=== PATIENT | female | born 1955 | race Caucasian/White ===

== ENCOUNTER 2018-06-03 04:20 | Inpatient (IN) ==
[2018-06-03] MEDS ORDERED: IOPAMIDOL 100 ML BOTTLE IV ONE (04:21)
[2018-06-03] MEDS ORDERED: ONDANSETRON 4 MG/2 ML VIAL IV ONE (04:28)
[2018-06-03] MEDS ORDERED: 0.9 % SODIUM CHLORIDE 2,000 ML IV ONE (04:28)
--- NOTE | 2018-06-03 04:32 | Emergency Department Note ---
Nausea/Vomiting/Diarrhea HPI - General Chief complaint: Nausea/Vomiting/Diarrhea Stated complaint: diarrhea Time Seen by Provider: 06/03/18 04:28 Source: patient Mode of arrival: ambulatory Limitations: no limitations - History of Present Illness HPI Narrative: 62-year-old female with diarrhea times 4 days. Has been on Augmentin 5 days for sinus infection prescribed at [facility]. sinus infection feels better but not resolved-still congested. also reports nausea. has not been eating much due to decreased appetite. reports that her hearing is decreased but cough is better. Chills noted with fever up to 101.5 here. She is markedly short of breath now requiring oxygen - Related Data Home Medications Medication Instructions Recorded Confirmed gamma e complex PO QDAY 12/29/15 05/31/18 multivitamin tablet 1 tab-cap PO QDAY 12/29/15 05/31/18 probiotic PO BID 12/29/15 05/31/18 epinephrine 0.3 mg/0.3 mL 0.3 mg IM ONCE 01/14/16 05/31/18 injection, auto-injector Previous Rx's Medication Instructions Recorded omeprazole 40 mg capsule,delayed 40 mg PO QDAY 30 Days #30 cap 01/14/16 release calcium carbonate 500 mg calcium 500 mg PO BID #60 tab 03/23/16 (1,250 mg) tablet cholecalciferol (vitamin D3) 2,000 2,000 unit PO QDAY #30 cap 03/23/16 unit capsule amoxicillin 875 mg-potassium 1 tab PO BID 10 Days #20 tab 05/31/18 clavulanate 125 mg tablet Allergies Allergy/AdvReac Type Severity Reaction Status Date / Time codeine Allergy Unknown Unknown Verified 05/31/18 13:04 bee stings Allergy Unknown Unknown Uncoded 05/31/18 13:04 Review of Systems All systems ED: reviewed and negative except as stated. Past Medical History - Past Medical History Attestation: Yes: The following information was validated with the patient. [facility] Narrative: Medical History (Last Reviewed 05/31/18 @ 13:10 by Dori Miranda PA-C) Abnormal mammogram (Chronic) Epigastric pain (Chronic) Lichen sclerosus (Chronic) Dry ear canal (Chronic) Migraines (Chronic) Kidney stones (Chronic) Acrochordon (Resolved) Acute otitis externa (Resolved) Anemia (Resolved) Bile back-up (Resolved) Colon polyps (Resolved) Dermatitis, eczematoid (Resolved) External otitis (Resolved) Gallbladder disorder (Resolved) Hemorrhoids (Resolved) Metatarsalgia (Resolved) Right foot pain (Resolved) Rotator cuff tendinitis (Resolved) Sigmoid diverticulosis (Resolved) Past Surgical History (Last Reviewed 05/31/18 @ 13:10 by Dori Miranda PA-C) History of cholecystectomy (Chronic) Hx of tonsillectomy (Chronic) H/O colonoscopy (Chronic) History of laparoscopic cholecystectomy (Resolved) Family History (Last Reviewed 05/31/18 @ 13:10 by Dori Miranda PA-C) Grandmother Arthritis Stroke H/O heart artery stent Family/Other Dementia Family/Other Dementia Mother Dementia Psychiatric history: Reports: no psych history 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 Normocephalic atraumatic. Conjunctive mildly bilaterally injected. No nasal discharge but audible congestion. Oropharynx dry buccal mucosa. Bilateral tympanic membranes are pearly with normal canals. She does seem to have some gross hearing loss. Neck is supple without lymphadenopathy thyromegaly or carotid bruit. Heart is regular rate and rhythm no murmur appreciated. Lungs with coarse sounds bilaterally concern for pneumonia. Now requiring 6 L oxygen nasal cannula. Abdomen is soft nontender nondistended. No peritoneal signs or guarding. +2 radial pulse. No pedal edema. Alert oriented. Limitations: no limitations Course Vital Signs Temperature 98.8 F 06/03/18 04:21 Pulse Rate 100 H 06/03/18 04:21 Respiratory Rate 22 06/03/18 04:21 Blood Pressure 118/81 06/03/18 04:21 Pulse Oximetry (%) 90 06/03/18 04:21 Temperature 102.7 F H 06/03/18 08:02 Pulse Rate 87 06/03/18 08:02 Respiratory Rate 24 H 06/03/18 06:27 Blood Pressure 115/70 06/03/18 08:02 Pulse Oximetry (%) 93 06/03/18 08:02 Nausea/Vomiting/Diarrhea - Lab Data Lab results reviewed: Yes I reviewed the patient's lab results. Result diagrams: 06/03/18 04:35 06/03/18 04:35 Lab Results 06/03/18 06/03/18 06/03/18 Range/Units 04:35 04:35 04:35 WBC 5.1 (4.5-11.0) K/mcL RBC 5.30 H (4.00-5.20) M/mcL Hgb 14.3 (12.0-15.0) g/dL Hct 42.9 (36.0-48.0) % MCV 81.0 (80.0-100.0) fL MCH 27.0 (26.0-34.0) pg MCHC 33.3 (31.0-36.0) g/dL RDW 13.5 (11.5-14.5) % Plt Count 168 (140-440) K/mcL MPV 9.2 (7.4-10.4) fL Gran % 86.4 H (38.0-78.0) % Lymph % (Auto) 8.4 L (15.5-49.0) % [place] % (Auto) 5.0 (1.0-12.0) % Eos % (Auto) 0 (0.0-7.0) % Baso % (Auto) 0.2 (0.0-2.0) % Gran # 4.4 (1.8-8.0) K/mcL Lymph # (Auto) 0.4 L (1.5-4.8) K/mcL [place] # (Auto) 0.3 (0.1-0.9) K/mcL Eos # (Auto) 0 (0.0-0.7) K/mcL Baso # (Auto) 0 (0.0-0.3) K/mcL VBG Lactic Acid (0.5-2.0) mmol/L Sodium 129 L (133-145) mmol/L Potassium 3.5 (3.3-5.1) mmol/L Chloride 94 L (96-108) mmol/L Carbon Dioxide 23 (22-30) mmol/L Anion Gap 12.0 (8-16) BUN 21 (8-23) mg/dl Creatinine 1.0 (0.6-1.1) mg/dl GFR Calculation 59 Glucose 154 H (70-105) mg/dL Calcium 8.9 (8.6-10.4) mg/dl Total Bilirubin 0.5 (0.0-1.0) mg/dL AST 44 H (0-37) U/l ALT 22 (0-40) U/l Alkaline Phosphatase 72 (39-117) U/L Troponin T TNP NT-Pro-B Natriuret Pep (0-125) pg/ml Total Protein 7.3 (5.9-8.4) gm/dL Albumin 3.6 (3.2-5.2) gm/dL Globulin 3.7 (2.2-3.7) gm/dL Albumin/Globulin Ratio 1.0 (1.0-2.3) Amylase 34 (28-100) U/L Lipase 45 (7-60) U/L Procalcitonin (<0.10) ng/mL Urine Color Urine Appearance Urine pH (5.0-9.0) Ur Specific [place] (1.000-1.035) Urine Protein (NEG) mg/dL Urine Glucose (UA) (NEG) mg/dL Urine Ketones (NEG) mg/dL Urine Occult Blood (<0.03) mg/dL Urine Nitrate (NEG) Urine Bilirubin (NEG) mg/dL Urine Urobilinogen (NEG) mg/dL Ur Leukocyte Esterase (NEG) /uL Urine RBC (0-1) /hpf Urine WBC (0-4) /hpf Ur Squamous Epith Cells (0-4) /hpf Ur Transition Epith Cell (0-2) /hpf Urine Bacteria (0) /hpf Hyaline Casts (0-2) /lpf Urine Mucus (0) /hpf Ur Culture Indicated? 06/03/18 06/03/18 06/03/18 Range/Units 04:35 05:45 05:45 WBC (4.5-11.0) K/mcL RBC (4.00-5.20) M/mcL Hgb (12.0-15.0) g/dL Hct (36.0-48.0) % MCV (80.0-100.0) fL MCH (26.0-34.0) pg MCHC (31.0-36.0) g/dL RDW (11.5-14.5) % Plt Count (140-440) K/mcL MPV (7.4-10.4) fL Gran % (38.0-78.0) % Lymph % (Auto) (15.5-49.0) % [place] % (Auto) (1.0-12.0) % Eos % (Auto) (0.0-7.0) % Baso % (Auto) (0.0-2.0) % Gran # (1.8-8.0) K/mcL Lymph # (Auto) (1.5-4.8) K/mcL [place] # (Auto) (0.1-0.9) K/mcL Eos # (Auto) (0.0-0.7) K/mcL Baso # (Auto) (0.0-0.3) K/mcL VBG Lactic Acid 1.3 (0.5-2.0) mmol/L Sodium (133-145) mmol/L Potassium (3.3-5.1) mmol/L Chloride (96-108) mmol/L Carbon Dioxide (22-30) mmol/L Anion Gap (8-16) BUN (8-23) mg/dl Creatinine (0.6-1.1) mg/dl GFR Calculation Glucose (70-105) mg/dL Calcium (8.6-10.4) mg/dl Total Bilirubin (0.0-1.0) mg/dL AST (0-37) U/l ALT (0-40) U/l Alkaline Phosphatase (39-117) U/L Troponin T NT-Pro-B Natriuret Pep 74.5 (0-125) pg/ml Total Protein (5.9-8.4) gm/dL Albumin (3.2-5.2) gm/dL Globulin (2.2-3.7) gm/dL Albumin/Globulin Ratio (1.0-2.3) Amylase (28-100) U/L Lipase (7-60) U/L Procalcitonin (<0.10) ng/mL Urine Color Yellow Urine Appearance Hazy Urine pH 6.0 (5.0-9.0) Ur Specific [place] 1.027 (1.000-1.035) Urine Protein 100 A (NEG) mg/dL Urine Glucose (UA) Negative (NEG) mg/dL Urine Ketones 5/tr A (NEG) mg/dL Urine Occult Blood Neg (<0.03) mg/dL Urine Nitrate Neg (NEG) Urine Bilirubin Neg (NEG) mg/dL Urine Urobilinogen Neg (NEG) mg/dL Ur Leukocyte Esterase Neg (NEG) /uL Urine RBC 1 (0-1) /hpf Urine WBC 4 (0-4) /hpf Ur Squamous Epith Cells 1 (0-4) /hpf Ur Transition Epith Cell < 1 (0-2) /hpf Urine Bacteria 0 (0) /hpf Hyaline Casts 32 H (0-2) /lpf Urine Mucus Many A (0) /hpf Ur Culture Indicated? No 06/03/18 06/03/18 Range/Units 06:53 06:53 WBC (4.5-11.0) K/mcL RBC (4.00-5.20) M/mcL Hgb (12.0-15.0) g/dL Hct (36.0-48.0) % MCV (80.0-100.0) fL MCH (26.0-34.0) pg MCHC (31.0-36.0) g/dL RDW (11.5-14.5) % Plt Count (140-440) K/mcL MPV (7.4-10.4) fL Gran % (38.0-78.0) % Lymph % (Auto) (15.5-49.0) % [place] % (Auto) (1.0-12.0) % Eos % (Auto) (0.0-7.0) % Baso % (Auto) (0.0-2.0) % Gran # (1.8-8.0) K/mcL Lymph # (Auto) (1.5-4.8) K/mcL [place] # (Auto) (0.1-0.9) K/mcL Eos # (Auto) (0.0-0.7) K/mcL Baso # (Auto) (0.0-0.3) K/mcL VBG Lactic Acid (0.5-2.0) mmol/L Sodium (133-145) mmol/L Potassium (3.3-5.1) mmol/L Chloride (96-108) mmol/L Carbon Dioxide (22-30) mmol/L Anion Gap (8-16) BUN (8-23) mg/dl Creatinine (0.6-1.1) mg/dl GFR Calculation Glucose (70-105) mg/dL Calcium (8.6-10.4) mg/dl Total Bilirubin (0.0-1.0) mg/dL AST (0-37) U/l ALT (0-40) U/l Alkaline Phosphatase (39-117) U/L Troponin T < 0.01 NT-Pro-B Natriuret Pep (0-125) pg/ml Total Protein (5.9-8.4) gm/dL Albumin (3.2-5.2) gm/dL Globulin (2.2-3.7) gm/dL Albumin/Globulin Ratio (1.0-2.3) Amylase (28-100) U/L Lipase (7-60) U/L Procalcitonin 0.18 (<0.10) ng/mL Urine Color Urine Appearance Urine pH (5.0-9.0) Ur Specific [place] (1.000-1.035) Urine Protein (NEG) mg/dL Urine Glucose (UA) (NEG) mg/dL Urine Ketones (NEG) mg/dL Urine Occult Blood (<0.03) mg/dL Urine Nitrate (NEG) Urine Bilirubin (NEG) mg/dL Urine Urobilinogen (NEG) mg/dL Ur Leukocyte Esterase (NEG) /uL Urine RBC (0-1) /hpf Urine WBC (0-4) /hpf Ur Squamous Epith Cells (0-4) /hpf Ur Transition Epith Cell (0-2) /hpf Urine Bacteria (0) /hpf Hyaline Casts (0-2) /lpf Urine Mucus (0) /hpf Ur Culture Indicated? ABG shows pH of 7.46 PCO2 of 33 PO2 of 63 is on 7 L oxygen Influenza swab was negative - Radiology Data Radiology results reviewed: Yes I reviewed the patient's radiology results. Initial chest x-ray shows infiltrate versus increased vascular markings. I.e. pneumonia versus CHF CT scan of chest subsequently done which shows multifocal pneumonia Disposition Pt seen by [facility]/PA only: No Clinical Impression: Multifocal pneumonia, Antibiotic-associated diarrhea Respiratory failure with hypoxia Qualifiers: Chronicity: acute Qualified Code(s): J96.01 - Acute respiratory failure with hypoxia Summary: Initial concern was for diarrhea but after examining patient respiratory failure quickly became the bigger issue. She has hypoxia and a fever concern for pneumonia with sepsis. Labs were ordered along with blood cultures. Dose of Zosyn given. IV fluids started; IV Tylenol Chest x-ray shows infiltrate versus CHF. CT scan shows multifocal pneumonia. She is requiring 7 L of oxygen nasal cannula. I discussed his case with Dr. Howard, hospitalist, who agreed to accept the case further care and evaluation in the ICU Disposition: Xfer As Inpt ([facility]) Condition: Critical Referrals: Reena Forbes ARNP [Primary Care Provider] -
[2018-06-03 05:02] LABS: Basophils # (Auto) 0 K/mcL (0.0-0.3); Basophils % (Auto) 0.2 % (0.0-2.0); Eosinophils # (Auto) 0 K/mcL (0.0-0.7); Eosinophils % (Auto) 0 % (0.0-7.0); Granulocytes % (Auto) 86.4 % (38.0-78.0); Lymphocytes # (Auto) 0.4 K/mcL (1.5-4.8); Lymphocytes % (Auto) 8.4 % (15.5-49.0); Mean Corpuscular HGB Conc 33.3 g/dL (31.0-36.0); Monocytes # (Auto) 0.3 K/mcL (0.1-0.9); Platelet Count 168 K/mcL (140-440); Red Cell Distribution Width 13.5 % (11.5-14.5)
[2018-06-03 05:20] LABS: ALT/SGPT 22 U/l (0-40); Albumin 3.6 gm/dL (3.2-5.2); Alkaline Phosphatase 72 U/L (39-117); Amylase 34 U/L (28-100); Blood Urea Nitrogen 21 mg/dl (8-23); Lipase 45 U/L (7-60)
[2018-06-03] MEDS ORDERED: PIPERACILLIN SODIUM/TAZOBACTAM 3.375 GM in DEXTROSE 5% IN WATER 50 ML IV ONE (05:31)
[2018-06-03] MEDS ORDERED: ACETAMINOPHEN 325 MG TABLET PO ONE ×2 (06:29→07:39)
[2018-06-03] MEDS ORDERED: ACETAMINOPHEN 1,000 MG/100 ML BOTTLE IV ONE (06:41)
[2018-06-03 06:46] LABS: Appearance,Urine HAZY; Bacteria,Urine 0 /hpf (0); Bilirubin,Urine NEG (NEG); Color,Urine YELLOW; Glucose,Urine (UA) NEGATIVE (NEG); Leukocyte Esterase,Urine NEG /uL (NEG); Mucus,Urine MANY /hpf (0); Protein,Urine 100 mg/dL (NEG); Specific Gravity,Urine 1.027 (1.000-1.035); Urine Blood NEG mg/dL (<0.03); Urine Hyaline Cast 32 /lpf (0-2); Urine RBC 1 /hpf (0-1); Urine Squamous Epithelial Cell 1 /hpf (0-4); Urine Transitional Epi Cells < 1 /hpf (0-2); Urine WBC 4 /hpf (0-4); Urobilinogen,Urine NEG (NEG)
--- NOTE | 2018-06-03 07:47 | XRay Report ---
CLINICAL INFORMATION: Cough COMPARISON: None. FINDINGS: The heart is equivocally enlarged accentuated by portable technique, right rotation, lordotic positioning and suboptimal inspiratory result. Mediastinum is unremarkable. Pulmonary vessels are normal for technique. Mild patchy infiltrates present both mid and lower lungs. The right diaphragm moderately elevated. Small bibasilar pleural effusions noted IMPRESSION: Mild patchy infiltrates and/or atelectasis both mid and lower lungs with small bilateral pleural effusions. Moderate elevation right diaphragm Interpreted and Authenticated by: Andreas Graham 06/03/18
--- NOTE | 2018-06-03 09:13 | Cat Scan Report ---
CLINICAL INFORMATION: Shortness of breath with bilateral infiltrates COMPARISON: None. TECHNIQUE: 80 cc of Isovue-300 were injected intravenously, and 25 seconds later, 0.625 mm helical slices were obtained from the lung apices through the bases. Following reconstruction, 2.5 mm sagittal, coronal and axial reformations were processed and reviewed at lung, mediastinal and bone windows. 7 mm axial MIPS were also obtained to optimize pulmonary nodule detection. The exam was performed using radiation dose optimization techniques including, but not limited to, automated exposure control, adjustment of the mA and/or kV according to patient size and use of iterative reconstruction technique. FINDINGS: Pulmonary parenchymal windows show moderate patchy alveolar and groundglass infiltrates throughout both lower lobes and, to a lesser extent, the right middle and both upper lobes. In the posterior basilar segment of the left lower lobe, there is a small wedge-shaped region of consolidation which could indicate infiltrate, scar, infarct or, less likely, a mass. Mild underlying bronchitis changes are noted. There are no effusions - the pleural spaces are normal. Mediastinal windows show the thoracic aorta is normal in contour and caliber. There is mild enlargement of the central pulmonary arteries the main pulmonary diameter of 3 cm suggesting pulmonary hypertension. A few borderline borderline enlarged mediastinal lymph nodes noted in the precarinal and right paratracheal region ranging up to 12 mm previously almost certainly benign reactive adenopathy. The heart is normal in size and configuration esophagus is unremarkable. No abnormality appreciated in the thyroid. Bones and soft tissues the chest wall seen only degenerative disc disease midthoracic spine with anterior osteophyte formation. Images through the abdomen show mild hepatomegaly with diffuse fatty change. Visualized pancreas, kidneys adrenal glands and spleen are normal. IMPRESSION: 1. Moderate sized patchy alveolar/groundglass infiltrates scattered throughout both lower lobes and, to a lesser extent, the right middle and both upper lobes. Multifocal infiltrates may indicate an infection (with a higher likelihood of an atypical organism such as Legionella, gram-negative, Klebsiella, anaerobe, PCP or TB) or aspiration. Less common causes include septic emboli and Bansal's granulomatosis. Chronic etiologies, would be extremely unlikely, but include organizing pneumonia, eosinophilic pneumonia and lipoid pneumonia 2. 2.4 cm wedge-shaped consolidated density in the posterior basilar segment left lower lobe. This is likely focally consolidated infection or scar. Mass would be considered unlikely. Suggest six month follow-up chest CT to ensure stability or involution. It was not present on abdominal CT demonstrating the lung bases over one year prior 05/23/2017 3. Mild underlying bronchitis 4. Mild enlargement of the central pulmonary arteries suggestive, but not diagnostic, of pulmonary hypertension. Consider echocardiogram to confirm or refute. 5. Mild mediastinal adenopathy almost certainly benign reactive lymph nodes related to pulmonary infection. 6. Mild hepatomegaly - stable Interpreted and Authenticated by: Andreas Graham 06/03/18
[2018-06-03] MEDS ORDERED: IPRATROPIUM/ALBUTEROL 3 ML AMPUL.NEB NEB PRN (10:21)
[2018-06-03] MEDS ORDERED: PROCHLORPERAZINE 25 MG SUPP.RECT PR PRN (10:21)
[2018-06-03] MEDS ORDERED: ACETAMINOPHEN 325 MG TABLET PO PRN (10:21)
--- NOTE | 2018-06-03 10:33 | Internal Med History&Physical ---
Medical - H&P: [facility] Patient information: Note initiated : 06/03/18 at 10:30 am Service Date, if different from initiated Date: [] Patient: Radha Eric 62 y/o F admitted on 06/03/18 for diarrhea. Chief Complaint: [] History of present illness: Ms. Eric is a 62 year old F Who developed signs and symptoms of a sinus infection over she went in to [place] care on Monday and received Augmentin read since taking Augmentin she is developed diarrhea but has shown some improvement in her sinus infection symptoms. She is doing relatively well until yesterday when she started to notice fever, becoming more tired and fatigued, and developing shortness of breath. She also complained of poor appetite. In the ER she is evaluated found to have a temperature of 101.5 and noted to be markedly short of breath requiring oxygen. First obtain a chest x-ray and then a CT chest for further delineation which showed multifocal pneumonia. She has continued diarrhea, C. difficile study in the ER was negative. She does have hyponatremia as well. She was requiring 7 L of oxygen in the ED. Lactic acid was within normal limits. Urinalysis with hyaline casts and ketones. She states her cough is just from some phlegm that is draining down from her sinuses. Patient denies chest pain, but does admit to shortness of breath. She received several liters of normal saline in the ED. Review of Systems: denies headache/nausea/vomiting/chest or abdominal pain/. Otherwise see above. Medical - H&P: H Medical history: Medical History (Last Reviewed 05/31/18 @ 13:10 by Dori Miranda PA-C) Abnormal mammogram (Chronic) Epigastric pain (Chronic) Lichen sclerosus (Chronic) Dry ear canal (Chronic) Migraines (Chronic) Kidney stones (Chronic) Acrochordon (Resolved) Acute otitis externa (Resolved) Anemia (Resolved) Bile back-up (Resolved) Colon polyps (Resolved) Dermatitis, eczematoid (Resolved) External otitis (Resolved) Gallbladder disorder (Resolved) Hemorrhoids (Resolved) Metatarsalgia (Resolved) Right foot pain (Resolved) Rotator cuff tendinitis (Resolved) Sigmoid diverticulosis (Resolved) Past Surgical History (Last Reviewed 05/31/18 @ 13:10 by Dori C Miranda, PA-C) History of cholecystectomy (Chronic) Hx of tonsillectomy (Chronic) H/O colonoscopy (Chronic) History of laparoscopic cholecystectomy (Resolved) Family History (Last Reviewed 05/31/18 @ 13:10 by Dori Miranda PA-C) Grandmother Arthritis Stroke H/O heart artery stent Family/Other Dementia Family/Other Dementia Mother Dementia Social History (Last Updated 05/31/18 @ 13:49 by Dori Miranda PA-C) Denies tobacco, was exposed to secondhand smoke as a child from her mother. Drinks alcohol rarely. Lives at home with her Medical - H&P: Meds Home Medications Medication Instructions Recorded Confirmed Type gamma e complex PO QDAY 12/29/15 05/31/18 History multivitamin tablet 1 tab-cap PO QDAY 12/29/15 05/31/18 History probiotic PO BID 12/29/15 05/31/18 History epinephrine 0.3 mg/0.3 mL 0.3 mg IM ONCE 01/14/16 05/31/18 History injection, auto-injector omeprazole 40 mg capsule,delayed 40 mg PO QDAY 30 Days #30 cap 01/14/16 Rx release calcium carbonate 500 mg calcium 500 mg PO BID #60 tab 03/23/16 05/31/18 Rx (1,250 mg) tablet cholecalciferol (vitamin D3) 2,000 2,000 unit PO QDAY #30 cap 03/23/16 05/31/18 Rx unit capsule amoxicillin 875 mg-potassium 1 tab PO BID 10 Days #20 tab 05/31/18 05/31/18 Rx clavulanate 125 mg tablet Allergies Allergy/AdvReac Type Severity Reaction Status Date / Time codeine Allergy Unknown Unknown Verified 05/31/18 13:04 bee stings Allergy Unknown Unknown Uncoded 05/31/18 13:04 Medical - H&P: Exam - Constitutional Vitals: Temp Pulse Resp BP Pulse Ox 101.3 F H 84 19 106/67 94 06/03/18 09:46 06/03/18 09:46 06/03/18 09:46 06/03/18 09:46 06/03/18 09:46 Exam: General: Alert, Awake, No acute Distress Eyes/N/T: EOMI, PEERL, Head/Neck: neck supple, normocephalic atraumatic CV: RRR, No murmurs, normal s1/s2 Pulm: Mild bilateral rhonchi/rales, no wheezing Abd: soft, nontender, +BS x4 Ext: no clubbing/cyanosis/edema Neuro: Alert, no focal deficits, moves all extremities, CN 2-12 grossly intact, symmetrical strength b/l upper/lower, sensations intact b/l upper/lower Skin: warm/dry Medical - H&P: Reslt - Labs CBC & Chem 7: 06/03/18 04:35 06/03/18 04:35 Labs: Short CBC 06/03/18 Range/Units 04:35 WBC 5.1 (4.5-11.0) K/mcL Hgb 14.3 (12.0-15.0) g/dL Hct 42.9 (36.0-48.0) % Plt Count 168 (140-440) K/mcL BMP 06/03/18 04:35 Sodium 129 L Potassium 3.5 Chloride 94 L Carbon Dioxide 23 BUN 21 Creatinine 1.0 Glucose 154 H Calcium 8.9 Cardiac Enzymes 06/03/18 06/03/18 Range/Units 04:35 06:53 Troponin T TNP < 0.01 Liver Function 06/03/18 Range/Units 04:35 Total Bilirubin 0.5 (0.0-1.0) mg/dL AST 44 H (0-37) U/l ALT 22 (0-40) U/l Alkaline Phosphatase 72 (39-117) U/L Albumin 3.6 (3.2-5.2) gm/dL Urine 06/03/18 Range/Units 05:45 Urine Color Yellow Urine Appearance Hazy Urine pH 6.0 (5.0-9.0) Ur Specific [place] 1.027 (1.000-1.035) Urine Protein 100 A (NEG) mg/dL Urine Glucose (UA) Negative (NEG) mg/dL - EKG Data EKG comments: 06/03/18 10:34 CT chest with multifocal infiltrates concerning for pneumonia. UA with ketones and hyaline casts C. difficile negative Medical - H&P: A/P - Narrative A/P Narrative: A: *Pneumonia: *Acute hypoxic respiratory failure: *Sepsis: *Diarrhea, antibiotic induced: *Volume depletion: *Hyponatremia: * P: -zosyn/levaquin, pending BC/SC -legionella/Strep UR pending -resp panel pending -O2 supp and wean, IS/Acapella -imoduim -f/u electrolytes -IVF's - -ppx: lovenox
[2018-06-03] MEDS: 0.9 % SODIUM CHLORIDE 1,000 ML IV SCH ×2 (11:22→21:33)
[2018-06-03] MEDS: LEVOFLOXACIN 750 MG/150 ML BAG IV SCH (11:23)
[2018-06-03] MEDS: LOPERAMIDE 2 MG CAPSULE PO PRN ×4 (11:33→20:14)
[2018-06-03] MEDS: PIPERACILLIN SODIUM/TAZOBACTAM 3.375 GM in DEXTROSE 5% IN WATER 50 ML IV SCH ×2 (13:08→17:17)
[2018-06-03] MEDS: ACETAMINOPHEN 325 MG TABLET PO PRN ×2 (14:21→19:14)
[2018-06-03] MEDS: 0.9 % SODIUM CHLORIDE 10 ML SYRINGE IV SCH ×3 (14:23→21:40)
[2018-06-03] MEDS: ONDANSETRON 4 MG/2 ML VIAL IV PRN (15:48)
[2018-06-03] MEDS: OSELTAMIVIR PHOSPHATE 75 MG CAPSULE PO SCH (17:19)
[2018-06-03] MEDS: FAMOTIDINE 20 MG TABLET PO SCH (20:14)
[2018-06-03] MEDS: LACTOBACILLUS 1 CAPSULE PO SCH (20:14)
[2018-06-03] MEDS ORDERED: hydrOXYzine 25 MG TABLET PO ONE (20:27)
[2018-06-03] MEDS: IBUPROFEN 200 MG TABLET PO PRN (21:39)
[2018-06-04] MEDS: PIPERACILLIN SODIUM/TAZOBACTAM 3.375 GM in DEXTROSE 5% IN WATER 50 ML IV SCH ×4 (00:03→17:01)
[2018-06-04] MEDS: OSELTAMIVIR PHOSPHATE 75 MG CAPSULE PO SCH ×3 (00:03→21:06)
[2018-06-04] MEDS: ACETAMINOPHEN 325 MG TABLET PO PRN ×5 (00:10→21:06)
[2018-06-04] MEDS: 0.9 % SODIUM CHLORIDE 1,000 ML IV SCH (01:32)
[2018-06-04] MEDS: 0.9 % SODIUM CHLORIDE 10 ML SYRINGE IV SCH ×3 (05:16→21:06)
[2018-06-04] MEDS: IBUPROFEN 200 MG TABLET PO PRN (05:16)
[2018-06-04 05:56] LABS: Basophils # (Auto) 0 K/mcL (0.0-0.3); Basophils % (Auto) 0.3 % (0.0-2.0); Eosinophils # (Auto) 0 K/mcL (0.0-0.7); Eosinophils % (Auto) 0 % (0.0-7.0); Lymphocytes # (Auto) 0.6 K/mcL (1.5-4.8); Lymphocytes % (Auto) 17.3 % (15.5-49.0); Mean Cell Volume 81.2 fL (80.0-100.0); Mean Corpuscular HGB Conc 33.4 g/dL (31.0-36.0); Monocytes # (Auto) 0.1 K/mcL (0.1-0.9); Monocytes % (Auto) 3.4 % (1.0-12.0); Platelet Count 136 K/mcL (140-440); RBC 4.73 M/mcL (4.00-5.20); Red Cell Distribution Width 13.7 % (11.5-14.5)
[2018-06-04 06:30] LABS: ALT/SGPT 25 U/l (0-40); Albumin 2.8 gm/dL (3.2-5.2); Albumin/Globulin Ratio 0.9 (1.0-2.3); Alkaline Phosphatase 61 U/L (39-117); Bilirubin,Direct < 0.2 mg/dL (0.0-0.3); Blood Urea Nitrogen 20 mg/dl (8-23); Gamma Glutamyl Transpeptidase 22 U/L (5-36); Uric Acid 4.4 mg/dL (2.5-8.0)
[2018-06-04] MEDS ORDERED: POTASSIUM CHLORIDE 20 MEQ TABLET PO ONE (07:20)
--- NOTE | 2018-06-04 07:22 | Internal Med Progress Note ---
Medical - PN: Subj Patient information: Note initiated : 06/04/18 at 7:16 am Service Date, if different from initiated Date: [] Patient: Radha Eric 62 y/o F admitted on 06/03/18 for diarrhea. Chief Complaint: [] Interval history: Ms. Eric is a 62 year old F Who developed signs and symptoms of a sinus infection over she went in to [place] care on Monday and received Augmentin read since taking Augmentin she is developed diarrhea but has shown some improvement in her sinus infection symptoms. She is doing relatively well until yesterday when she started to notice fever, becoming more tired and fatigued, and developing shortness of breath. She also complained of poor appetite. In the ER she is evaluated found to have a temperature of 101.5 and noted to be markedly short of breath requiring oxygen. First obtain a chest x-ray and then a CT chest for further delineation which showed multifocal pneumonia. She has continued diarrhea, C. difficile study in the ER was negative. She does have hyponatremia as well. She was requiring 7 L of oxygen in the ED. Lactic acid was within normal limits. Urinalysis with hyaline casts and ketones. She states her cough is just from some phlegm that is draining down from her sinuses. Patient denies chest pain, but does admit to shortness of breath. She received several liters of normal saline in the ED. 06/04 Cough and shortness of breath slowly improving. Tired. No other new complaints. diarrhea slowing down. Review of Systems: denies headache/fever/chills/nausea/vomiting/chest or abdominal pain. Otherwise see above. - Constitutional Vitals: Vital Signs Temp Pulse Resp BP Pulse Ox 99.6 F H 59 L 19 95/60 93 06/04/18 06:32 06/04/18 06:32 06/04/18 06:32 06/04/18 06:01 06/04/18 06:45 Period Temp Pulse Resp BP Sys/Martins Pulse Ox Last 24 Hr 98.7 F-103.3 F 57-91 12-36 82-126/54-80 90-98 Intake and Output 06/03/18 06/04/18 06/04/18 21:59 05:59 13:59 Intake Total 50 / 50 972 / 972 Output Total 239 / 239 150 / 150 Balance -189 / -189 822 / 822 Weight 91.807 kg Intake & Output: Intake & Output 06/03/18 06/04/18 06/04/18 21:59 05:59 13:59 Intake Total 50 / 50 972 / 972 Output Total 239 / 239 150 / 150 Balance -189 / -189 822 / 822 Weight 91.807 kg Intake: IV 50 / 50 972 / 972 Sodium Chloride 0.9% 1,000 ml @ 922 / 922 100 mls/hr IV .Q10H [facility] Rx#: [id number] Zosyn 3.375 gm In Dextrose 5% 50 / 50 50 / 50 in Water 50 ml @ 100 mls/hr IV Q6H [facility] Rx#:[id number] Output: Urine Catheter Amount 235 / 235 150 / 150 # of times incontinent of urine 4 / 4 Other: Urine Appearance Clear Clear Uretheral (Lauren) Clear Clear Urine Color Bright Yellow Dark Dori Uretheral (Lauren) Straw Dark Dori Stool Size Small Stool Color Brown Stool Consistency Liquid # of times incontinent of 1 Bowels Exam: General: Alert, Awake, No acute Distress Eyes/N/T: EOMI, Head/Neck: neck supple, normocephalic atraumatic CV: RRR, No murmurs, normal s1/s2 Pulm: Mild bilateral rhonchi/rales, no wheezing Abd: soft, nontender, +BS x4 Ext: no clubbing/cyanosis, trace LE edema Neuro: Alert, no focal deficits, moves all extremities, Skin: warm/dry Medical - PN: Obj Da - Labs CBC & Chem 7: 06/04/18 04:10 06/04/18 04:10 Labs: Abnormal Lab Results 06/04/18 06/04/18 06/03/18 04:10 04:10 05:45 WBC 3.2 L RBC Plt Count 136 L Gran % 79.0 H Lymph % (Auto) Lymph # (Auto) 0.6 L Sodium Potassium 3.2 L Chloride Glucose Calcium 8.5 L AST 61 H Lactate Dehydrogenase 481 H Albumin 2.8 L Albumin/Globulin Ratio 0.9 L Urine Protein 100 A Urine Ketones 5/tr A Hyaline Casts 32 H Urine Mucus Many A 06/03/18 06/03/18 04:35 04:35 WBC RBC 5.30 H Plt Count Gran % 86.4 H Lymph % (Auto) 8.4 L Lymph # (Auto) 0.4 L Sodium 129 L Potassium Chloride 94 L Glucose 154 H Calcium AST 44 H Lactate Dehydrogenase Albumin Albumin/Globulin Ratio Urine Protein Urine Ketones Hyaline Casts Urine Mucus Meds: Medications Acetaminophen (Tylenol) 650 mg PO Q4-6HP PRN PRN Reason: PAIN/FEVER > 101 Last Admin: 06/04/18 05:16 Dose: 650 mg Albuterol/Ipratropium (Duoneb) 3 ml NEB Q4HRT PRN PRN Reason: Bronchospasm Enoxaparin Sodium (Lovenox) 40 mg SQ DAILY [facility] Famotidine (Pepcid) 20 mg PO BID [facility] Last Admin: 06/03/18 20:14 Dose: 20 mg Levofloxacin (Levaquin) 750 mg in 150 mls @ 100 mls/hr IV DAILY [facility] Last Infusion: 06/03/18 13:08 Dose: Infused Piperacillin Sod/Tazobactam (Sod 3.375 gm/ Dextrose) 50 mls @ 100 mls/hr IV Q6H [facility] Last Admin: 06/04/18 05:16 Dose: 100 mls/hr Lactobacillus Rhamnosus (Culturelle) 1 cap PO BID [facility] Last Admin: 06/03/18 20:14 Dose: 1 cap Loperamide HCl (Imodium) 2 mg PO PRN PRN PRN Reason: Diarrhea Last Admin: 06/03/18 20:14 Dose: 2 mg Ondansetron HCl (Zofran) 4 mg IV Q4HP PRN PRN Reason: Nausea And Vomiting Last Admin: 06/03/18 15:48 Dose: 4 mg Oseltamivir Phosphate (Tamiflu) 75 mg PO BID [facility] Last Admin: 06/04/18 00:03 Dose: 75 mg Pneumococcal Polyvalent Vaccine (Pneumovax 23) 0.5 ml IM .ONCE ONE Stop: 06/04/18 10:01 Prochlorperazine Maleate (Compazine) 12.5 mg [place] Q12HP PRN PRN Reason: Nausea And Vomiting Sodium Chloride (Saline Flush) 10 ml IV Q8 [facility] Last Admin: 06/04/18 05:16 Dose: 10 ml Medical - PN: A/P - Time Spent With Patient Total time spent is greater than 50% in coordination of care (as documented) at patient's floor/unit and/or counseling patient: - Narrative A/P Narrative: A: *Multifocal Pneumonia (INFLUENZA A): -strep UR neg *Acute hypoxic respiratory failure: 2/2 above -3L's NC from 6L's on admit *Sepsis: improving *Recent Sinus infection *Diarrhea, antibiotic induced: slowing down *Volume depletion: *Hyponatremia: improved *hypokalemia P: -Tamiflu -finish abx for sinus infection -legionella pending -O2 supp and wean, IS/Acapella -imodum prn -f/u electrolytes and replete prn -IVF's d/c -ambulate -ppx: [facility] - PN: Qual - VTE Deep Vein Thrombosis/Pulmonary Embolism Present on Admission: No
[2018-06-04] MEDS: ENOXAPARIN 40 MG/0.4 ML SYRINGE SQ SCH (08:25)
[2018-06-04] MEDS: LACTOBACILLUS 1 CAPSULE PO SCH ×2 (08:25→21:06)
[2018-06-04] MEDS: FAMOTIDINE 20 MG TABLET PO SCH ×2 (08:25→21:06)
[2018-06-04] MEDS: LEVOFLOXACIN 750 MG/150 ML BAG IV SCH (08:26)
[2018-06-04] MEDS ORDERED: PNEUMOCOCCAL 23-VAL P-SAC VAC 0.5 ML SYRINGE IM ONE (10:00)
[2018-06-04] MEDS: ONDANSETRON 4 MG/2 ML VIAL IV PRN (11:47)
[2018-06-04] MEDS ORDERED: hydrOXYzine 25 MG TABLET PO ONE (18:41)
[2018-06-04] MEDS: BENZONATATE 100 MG CAPSULE PO PRN (21:40)
[2018-06-05] MEDS: PIPERACILLIN SODIUM/TAZOBACTAM 3.375 GM in DEXTROSE 5% IN WATER 50 ML IV SCH ×5 (00:08→23:54)
[2018-06-05] MEDS: ACETAMINOPHEN 325 MG TABLET PO PRN ×3 (03:09→18:01)
[2018-06-05] MEDS ORDERED: FUROSEMIDE 40 MG/4 ML VIAL IV ONE ×3 (04:11→13:00)
[2018-06-05] MEDS: BENZONATATE 100 MG CAPSULE PO PRN ×2 (05:22→20:07)
[2018-06-05] MEDS: 0.9 % SODIUM CHLORIDE 10 ML SYRINGE IV SCH ×3 (05:23→21:10)
[2018-06-05 05:46] LABS: Basophils # (Auto) 0 K/mcL (0.0-0.3); Basophils % (Auto) 0.3 % (0.0-2.0); Eosinophils # (Auto) 0 K/mcL (0.0-0.7); Eosinophils % (Auto) 0 % (0.0-7.0); Granulocytes % (Auto) 79.6 % (38.0-78.0); Lymphocytes # (Auto) 0.4 K/mcL (1.5-4.8); Lymphocytes % (Auto) 15.9 % (15.5-49.0); Mean Cell Volume 81.4 fL (80.0-100.0); Mean Corpuscular HGB Conc 33.8 g/dL (31.0-36.0); Monocytes # (Auto) 0.1 K/mcL (0.1-0.9); Monocytes % (Auto) 4.2 % (1.0-12.0); Platelet Count 140 K/mcL (140-440); RBC 4.45 M/mcL (4.00-5.20); Red Cell Distribution Width 13.7 % (11.5-14.5)
[2018-06-05 06:33] LABS: Blood Urea Nitrogen 11 mg/dl (8-23)
[2018-06-05] MEDS ORDERED: POTASSIUM CHLORIDE 20 MEQ TABLET PO ONE ×2 (07:05→13:00)
--- NOTE | 2018-06-05 07:10 | Internal Med Progress Note ---
Medical - PN: Subj Patient information: Note initiated : 06/05/18 at 6:59 am Service Date, if different from initiated Date: [] Patient: Radha Eric 62 y/o F admitted on 06/03/18 for diarrhea. Chief Complaint: [] Interval history: Ms. Eric is a 62 year old F Who developed signs and symptoms of a sinus infection over she went in to [place] care on Monday and received Augmentin read since taking Augmentin she is developed diarrhea but has shown some improvement in her sinus infection symptoms. She is doing relatively well until yesterday when she started to notice fever, becoming more tired and fatigued, and developing shortness of breath. She also complained of poor appetite. In the ER she is evaluated found to have a temperature of 101.5 and noted to be markedly short of breath requiring oxygen. First obtain a chest x-ray and then a CT chest for further delineation which showed multifocal pneumonia. She has continued diarrhea, C. difficile study in the ER was negative. She does have hyponatremia as well. She was requiring 7 L of oxygen in the ED. Lactic acid was within normal limits. Urinalysis with hyaline casts and ketones. She states her cough is just from some phlegm that is draining down from her sinuses. Patient denies chest pain, but does admit to shortness of breath. She received several liters of normal saline in the ED. 06/04 Cough and shortness of breath slowly improving. Tired. No other new complaints. diarrhea slowing down. 06/05 Increasing oxygen needs last night. Patient sleeping at the time and no respiratory distress. Had fever last night but patient does not feel feverish. Received 40 of Lasix with decent urine output and put on high flow nasal cannula. Cough improving. Dyspnea similar to yesterday she does not feel particularly short of breath, at least while in bed Review of Systems: denies headache/fever/chills/nausea/vomiting/chest or abdominal pain. Otherwise see above. - Constitutional Vitals: Vital Signs Temp Pulse Resp BP Pulse Ox 100.9 F H 78 13 111/71 97 06/05/18 06:01 06/05/18 06:01 06/05/18 06:01 06/05/18 06:01 06/05/18 06:01 Period Temp Pulse Resp BP Sys/Martins Pulse Ox Last 24 Hr 98.6 F-102.5 F 18-90 13-32 94-136/54-76 85-98 Intake and Output 06/04/18 06/05/18 06/05/18 21:59 05:59 13:59 Intake Total 50 / 50 100 / 100 Output Total 267 / 267 1155 / 1155 Balance -217 / -217 -1055 / -1055 Weight 91.852 kg Intake & Output: Intake & Output 06/04/18 06/05/18 06/05/18 21:59 05:59 13:59 Intake Total 50 / 50 100 / 100 Output Total 267 / 267 1155 / 1155 Balance -217 / -217 -1055 / -1055 Weight 91.852 kg Intake: IV 50 / 50 100 / 100 Zosyn 3.375 gm In Dextrose 5% 50 / 50 100 / 100 in Water 50 ml @ 100 mls/hr IV Q6H [facility] Rx#:[id number] Output: Urine Catheter Amount 265 / 265 1155 / 1155 # of times incontinent of urine 2 / 2 Other: Meal Lunch Percent of Meal Consumed 50% Feeding Ability Independent Urine Appearance Clear Uretheral (Lauren) Clear Clear Urine Color Dark Dori Uretheral (Lauren) Straw Straw Light Dori Exam: General: Alert, Awake, No acute Distress Eyes/N/T: EOMI, Head/Neck: neck supple, normocephalic atraumatic CV: RRR, No murmurs, normal s1/s2 Pulm: b/l rhonchi/rales, no wheezing Abd: soft, nontender, +BS x4 Ext: no clubbing/cyanosis, trace LE edema Neuro: Alert, no focal deficits, moves all extremities, Skin: warm/dry Medical - PN: Obj Da - Labs CBC & Chem 7: 06/05/18 04:21 06/05/18 04:21 Labs: Abnormal Lab Results 06/05/18 06/05/18 06/04/18 04:21 04:21 04:10 WBC 2.7 L 3.2 L RBC Plt Count 136 L Gran % 79.6 H 79.0 H Lymph % (Auto) Lymph # (Auto) 0.4 L 0.6 L Sodium Potassium Chloride Glucose Calcium 8.3 L AST Lactate Dehydrogenase Albumin Albumin/Globulin Ratio Urine Protein Urine Ketones Hyaline Casts Urine Mucus 06/04/18 06/03/18 06/03/18 04:10 05:45 04:35 WBC RBC Plt Count Gran % Lymph % (Auto) Lymph # (Auto) Sodium 129 L Potassium 3.2 L Chloride 94 L Glucose 154 H Calcium 8.5 L AST 61 H 44 H Lactate Dehydrogenase 481 H Albumin 2.8 L Albumin/Globulin Ratio 0.9 L Urine Protein 100 A Urine Ketones 5/tr A Hyaline Casts 32 H Urine Mucus Many A 06/03/18 04:35 WBC RBC 5.30 H Plt Count Gran % 86.4 H Lymph % (Auto) 8.4 L Lymph # (Auto) 0.4 L Sodium Potassium Chloride Glucose Calcium AST Lactate Dehydrogenase Albumin Albumin/Globulin Ratio Urine Protein Urine Ketones Hyaline Casts Urine Mucus Meds: Medications Acetaminophen (Tylenol) 650 mg PO Q4-6HP PRN PRN Reason: PAIN/FEVER > 101 Last Admin: 06/05/18 03:09 Dose: 650 mg Albuterol/Ipratropium (Duoneb) 3 ml NEB Q4HRT PRN PRN Reason: Bronchospasm Benzonatate (Tessalon) 200 mg PO TIDP PRN PRN Reason: Cough Last Admin: 06/05/18 05:22 Dose: 200 mg Enoxaparin Sodium (Lovenox) 40 mg SQ DAILY [facility] Last Admin: 06/04/18 08:25 Dose: 40 mg Famotidine (Pepcid) 20 mg PO BID [facility] Last Admin: 06/04/18 21:06 Dose: 20 mg Furosemide (Lasix) 40 mg IV ONCE ONE Stop: 06/05/18 04:12 Last Admin: 06/05/18 04:48 Dose: Not Given Levofloxacin (Levaquin) 750 mg in 150 mls @ 100 mls/hr IV DAILY [facility] Last Infusion: 06/04/18 09:26 Dose: Infused Piperacillin Sod/Tazobactam (Sod 3.375 gm/ Dextrose) 50 mls @ 100 mls/hr IV Q6H [facility] Last Infusion: 06/05/18 05:51 Dose: Infused Lactobacillus Rhamnosus (Culturelle) 1 cap PO BID [facility] Last Admin: 06/04/18 21:06 Dose: 1 cap Loperamide HCl (Imodium) 2 mg PO PRN PRN PRN Reason: Diarrhea Last Admin: 06/03/18 20:14 Dose: 2 mg Ondansetron HCl (Zofran) 4 mg IV Q4HP PRN PRN Reason: Nausea And Vomiting Last Admin: 06/04/18 11:47 Dose: 4 mg Oseltamivir Phosphate (Tamiflu) 75 mg PO BID [facility] Last Admin: 06/04/18 21:06 Dose: 75 mg Prochlorperazine Maleate (Compazine) 12.5 mg [place] Q12HP PRN PRN Reason: Nausea And Vomiting Sodium Chloride (Saline Flush) 10 ml IV Q8 [facility] Last Admin: 06/05/18 05:23 Dose: 10 ml Medical - PN: A/P - Time Spent With Patient Total time spent is greater than 50% in coordination of care (as documented) at patient's floor/unit and/or counseling patient: - Narrative A/P Narrative: A: *Multifocal Pneumonia (INFLUENZA A): -strep UR neg *Acute hypoxic respiratory failure: 2/2 above -O2 increased last night, on High-flow NC, lasix x1 with good UOP given Positive fluid balance from initial IV boluses given for hypotension and CXR with pulm edema *Sepsis: improving -febrile last night *Recent Sinus infection *Diarrhea, antibiotic induced: slowing down *Volume depletion w/Hypotension on Admit: resolved *Hyponatremia: improved *hypokalemia: improved *Leukopenia: 2/2 above P: -Tamiflu -finish abx for sinus infection, broad emiripic at this time with Zosyn/ Levaquin (MRSA screen neg, no h/o MRSA) -legionella pending -O2 supp and wean, IS/Acapella -lasix today -imodum prn -f/u electrolytes and replete prn -ambulate - -ppx: [facility] - PN: Qual - VTE Deep Vein Thrombosis/Pulmonary Embolism Present on Admission: No
[2018-06-05] MEDS: LACTOBACILLUS 1 CAPSULE PO SCH ×2 (08:55→20:07)
[2018-06-05] MEDS: NAPROXEN 250 MG TABLET PO PRN ×2 (08:55→20:07)
[2018-06-05] MEDS: OSELTAMIVIR PHOSPHATE 75 MG CAPSULE PO SCH ×2 (08:55→20:08)
[2018-06-05] MEDS: LEVOFLOXACIN 750 MG/150 ML BAG IV SCH (08:56)
[2018-06-05] MEDS: ENOXAPARIN 40 MG/0.4 ML SYRINGE SQ SCH (08:56)
[2018-06-05] MEDS: FAMOTIDINE 20 MG TABLET PO SCH ×2 (08:56→20:07)
[2018-06-05 08:59] LABS: Anisocytosis FEW (NONE SEEN); Band Neutrophils % 2 % (0-10); Lymphocytes % 21 % (15-49); Monocytes % (Manual) 3 % (1-12); Platelet Estimate NORMAL (NORMAL); RBC Morphology ABNORM (NORMAL); Segmented Neutrophils % 74 % (38-78)
--- NOTE | 2018-06-05 09:04 | XRay Report ---
HISTORY: Hypoxia FINDINGS: There are moderate generalized alveolar infiltrates throughout both lungs. The greatest involvement is in the periphery of the mid and lower third of the left lung. These infiltrates have become worse since the prior chest CT done on 06/03/18. Lung volumes are normal. No pneumothorax or pleural effusion are present. There are infiltrates surrounding the micky. These would obscure any underlying lymph nodes. The heart is borderline enlarged but magnified by portable technique. IMPRESSION: Worsening pneumonia bilaterally Interpreted and Authenticated by: Vitaly Armenta 06/05/18
[2018-06-05] MEDS ORDERED: ALBUMIN HUMAN 12.5 GM/50 ML BAG IV ONE (13:00)
[2018-06-05] MEDS: hydrOXYzine 25 MG TABLET PO PRN (20:08)
[2018-06-06] MEDS: 0.9 % SODIUM CHLORIDE 10 ML SYRINGE IV SCH ×4 (05:11→20:59)
[2018-06-06] MEDS: PIPERACILLIN SODIUM/TAZOBACTAM 3.375 GM in DEXTROSE 5% IN WATER 50 ML IV SCH ×4 (05:11→23:24)
[2018-06-06 05:14] LABS: Basophils # (Auto) 0 K/mcL (0.0-0.3); Basophils % (Auto) 0.5 % (0.0-2.0); Eosinophils # (Auto) 0.1 K/mcL (0.0-0.7); Eosinophils % (Auto) 1.5 % (0.0-7.0); Granulocytes % (Auto) 66.8 % (38.0-78.0); Lymphocytes # (Auto) 0.9 K/mcL (1.5-4.8); Lymphocytes % (Auto) 24.5 % (15.5-49.0); Mean Cell Volume 80.9 fL (80.0-100.0); Mean Corpuscular HGB Conc 33.6 g/dL (31.0-36.0); Monocytes # (Auto) 0.2 K/mcL (0.1-0.9); Monocytes % (Auto) 6.7 % (1.0-12.0); Platelet Count 160 K/mcL (140-440); RBC 4.47 M/mcL (4.00-5.20); Red Cell Distribution Width 13.8 % (11.5-14.5)
[2018-06-06 05:43] LABS: ALT/SGPT 28 U/l (0-40); Albumin 3.1 gm/dL (3.2-5.2); Albumin/Globulin Ratio 0.9 (1.0-2.3); Alkaline Phosphatase 59 U/L (39-117); Bilirubin,Direct < 0.2 mg/dL (0.0-0.3); Blood Urea Nitrogen 18 mg/dl (8-23); Gamma Glutamyl Transpeptidase 23 U/L (5-36); Uric Acid 4.3 mg/dL (2.5-8.0)
--- NOTE | 2018-06-06 07:09 | Internal Med Progress Note ---
Medical - PN: Subj Patient information: Note initiated : 06/06/18 at 7:07 am Service Date, if different from initiated Date: [] Patient: Radha Eric 62 y/o F admitted on 06/03/18 for diarrhea. Chief Complaint: [] Interval history: Ms. Eric is a 62 year old F Who developed signs and symptoms of a sinus infection over she went in to [place] care on Monday and received Augmentin read since taking Augmentin she is developed diarrhea but has shown some improvement in her sinus infection symptoms. She is doing relatively well until yesterday when she started to notice fever, becoming more tired and fatigued, and developing shortness of breath. She also complained of poor appetite. In the ER she is evaluated found to have a temperature of 101.5 and noted to be markedly short of breath requiring oxygen. First obtain a chest x-ray and then a CT chest for further delineation which showed multifocal pneumonia. She has continued diarrhea, C. difficile study in the ER was negative. She does have hyponatremia as well. She was requiring 7 L of oxygen in the ED. Lactic acid was within normal limits. Urinalysis with hyaline casts and ketones. She states her cough is just from some phlegm that is draining down from her sinuses. Patient denies chest pain, but does admit to shortness of breath. She received several liters of normal saline in the ED. 06/04 Cough and shortness of breath slowly improving. Tired. No other new complaints. diarrhea slowing down. 06/05 Increasing oxygen needs last night. Patient sleeping at the time and no respiratory distress. Had fever last night but patient does not feel feverish. Received 40 of Lasix with decent urine output and put on high flow nasal cannula. Cough improving. Dyspnea similar to yesterday she does not feel particularly short of breath, at least while in bed 1/2 Slept a few hours last night. Oxygenation supplementation decreased quite a bit. She is down to 2 L on nasal cannula satting mid 90s and just lowered to 1 L. Plan to get her up moving more today ambulatory with assistance continue weaning down oxygen. Review of Systems: denies headache/fever/chills/nausea/vomiting/chest or abdominal pain/diarrhea. Otherwise see above. - Constitutional Vitals: Vital Signs Temp Pulse Resp BP Pulse Ox 98.4 F 59 L 19 90/61 95 06/06/18 07:01 06/06/18 07:01 06/06/18 07:01 06/06/18 07:01 06/06/18 07:01 Period Temp Pulse Resp BP Sys/Martins Pulse Ox Last 24 Hr 97.9 F-101.9 F 54-89 11-34 87-116/56-78 92-100 Intake and Output 06/05/18 06/06/18 06/06/18 21:59 05:59 13:59 Intake Total 100 / 100 50 / 50 Output Total 353 / 353 140 / 140 30 / 30 Balance -253 / -253 -90 / -90 -30 / -30 Weight 91.399 kg Intake & Output: Intake & Output 06/05/18 06/06/18 06/06/18 21:59 05:59 13:59 Intake Total 100 / 100 50 / 50 Output Total 353 / 353 140 / 140 30 / 30 Balance -253 / -253 -90 / -90 -30 / -30 Weight 91.399 kg Intake: IV 100 / 100 50 / 50 Zosyn 3.375 gm In Dextrose 5% 50 / 50 50 / 50 in Water 50 ml @ 100 mls/hr IV Q6H [facility] Rx#:[id number] Output: Urine Catheter Amount 353 / 353 140 / 140 30 / 30 Other: Meal Dinner Percent of Meal Consumed 75% Feeding Ability Assist with Tray Set Up Urine Appearance Clear Uretheral (Lauren) Clear Clear Urine Color Dark Dori Light Dori Uretheral (Lauren) Bright Yellow Light Dori Exam: General: Alert, Awake, No acute Distress Eyes/N/T: EOMI, Head/Neck: neck supple, normocephalic atraumatic CV: RRR, No murmurs, normal s1/s2 Pulm: b/l bibase rhonchi/rales, no wheezing Abd: soft, nontender, +BS x4 Ext: no clubbing/cyanosis, trace LE edema Neuro: Alert, no focal deficits, moves all extremities, Skin: warm/dry Medical - PN: Obj Da - Labs CBC & Chem 7: 06/06/18 04:00 06/06/18 04:00 Labs: Abnormal Lab Results 06/06/18 06/06/18 06/05/18 04:00 04:00 07:45 WBC 3.6 L Plt Count Gran % Lymph # (Auto) 0.9 L RBC Morphology Abnorm A Anisocytosis Few A Potassium Calcium AST 63 H Lactate Dehydrogenase 529 H Albumin 3.1 L Albumin/Globulin Ratio 0.9 L 06/05/18 06/05/18 06/04/18 04:21 04:21 04:10 WBC 2.7 L 3.2 L Plt Count 136 L Gran % 79.6 H 79.0 H Lymph # (Auto) 0.4 L 0.6 L RBC Morphology Anisocytosis Potassium Calcium 8.3 L AST Lactate Dehydrogenase Albumin Albumin/Globulin Ratio 06/04/18 04:10 WBC Plt Count Gran % Lymph # (Auto) RBC Morphology Anisocytosis Potassium 3.2 L Calcium 8.5 L AST 61 H Lactate Dehydrogenase 481 H Albumin 2.8 L Albumin/Globulin Ratio 0.9 L Meds: Medications Acetaminophen (Tylenol) 650 mg PO Q4-6HP PRN PRN Reason: PAIN/FEVER > 101 Last Admin: 06/05/18 18:01 Dose: 650 mg Albuterol/Ipratropium (Duoneb) 3 ml NEB Q4HRT PRN PRN Reason: Bronchospasm Benzonatate (Tessalon) 200 mg PO TIDP PRN PRN Reason: Cough Last Admin: 06/05/18 20:07 Dose: 200 mg Enoxaparin Sodium (Lovenox) 40 mg SQ DAILY [facility] Last Admin: 06/05/18 08:56 Dose: 40 mg Famotidine (Pepcid) 20 mg PO BID [facility] Last Admin: 06/05/18 20:07 Dose: 20 mg Hydroxyzine HCl (Atarax) 50 mg PO HSP PRN PRN Reason: Insomnia Last Admin: 06/05/18 20:08 Dose: 50 mg Levofloxacin (Levaquin) 750 mg in 150 mls @ 100 mls/hr IV DAILY [facility] Last Infusion: 06/05/18 09:30 Dose: 0 mls/hr Piperacillin Sod/Tazobactam (Sod 3.375 gm/ Dextrose) 50 mls @ 100 mls/hr IV Q6H [facility] Last Admin: 06/06/18 05:11 Dose: 100 mls/hr Lactobacillus Rhamnosus (Culturelle) 1 cap PO BID [facility] Last Admin: 06/05/18 20:07 Dose: 1 cap Loperamide HCl (Imodium) 2 mg PO PRN PRN PRN Reason: Diarrhea Last Admin: 06/03/18 20:14 Dose: 2 mg Naproxen (Naprosyn) 500 mg PO BIDP PRN PRN Reason: pain or fever Last Admin: 06/05/18 20:07 Dose: 500 mg Ondansetron HCl (Zofran) 4 mg IV Q4HP PRN PRN Reason: Nausea And Vomiting Last Admin: 06/04/18 11:47 Dose: 4 mg Oseltamivir Phosphate (Tamiflu) 75 mg PO BID [facility] Last Admin: 06/05/18 20:08 Dose: 75 mg Prochlorperazine Maleate (Compazine) 12.5 mg [place] Q12HP PRN PRN Reason: Nausea And Vomiting Sodium Chloride (Saline Flush) 10 ml IV Q8 [facility] Last Admin: 06/06/18 05:11 Dose: 10 ml Medical - PN: A/P - Time Spent With Patient Total time spent is greater than 50% in coordination of care (as documented) at patient's floor/unit and/or counseling patient: - Narrative A/P Narrative: A: *Multifocal Pneumonia (INFLUENZA A): -strep UR neg *Acute hypoxic respiratory failure: 2/2 above -down to 1-2L NC from Vapotherm *Sepsis: improving -afebrile last night *Recent Sinus infection *Diarrhea, antibiotic induced: improved *Volume depletion w/Hypotension on Admit: resolved, did diurese on 06/05 *Hyponatremia: improved *hypokalemia: improved *Leukopenia: 2/2 above P: -Tamiflu -finish abx for sinus infection, broad emiripic at this time with Zosyn/ Levaquin (MRSA screen neg, no h/o MRSA) -legionella pending -O2 supp and weaning -IS/Acapella -imodum prn -f/u electrolytes and replete prn -ambulate - -ppx: [facility] - PN: Qual - VTE Deep Vein Thrombosis/Pulmonary Embolism Present on Admission: No
--- NOTE | 2018-06-06 08:46 | XRay Report ---
HISTORY: Follow-up pulmonary infiltrates and edema FINDINGS: There are moderate diffuse infiltrates in both lungs, left forceps and right. The greatest consolidation is behind left heart border and in the periphery of the left lower lobe and lingula. There has been improvement bilaterally since 06/05/18. The heart remains borderline enlarged. The pulmonary vessels are obscured by the infiltrates. No pleural effusion is detected. IMPRESSION: Bilateral infiltrates, left worse than right. This could be pneumonia, pulmonary edema, ARDS or a combination of the above. This is beginning to improve. Stable borderline cardiomegaly Interpreted and Authenticated by: Vitaly Armenta 06/06/18
[2018-06-06] MEDS: ENOXAPARIN 40 MG/0.4 ML SYRINGE SQ SCH (09:06)
[2018-06-06] MEDS: LACTOBACILLUS 1 CAPSULE PO SCH ×2 (09:06→20:28)
[2018-06-06] MEDS: OSELTAMIVIR PHOSPHATE 75 MG CAPSULE PO SCH ×2 (09:06→20:28)
[2018-06-06] MEDS: FAMOTIDINE 20 MG TABLET PO SCH ×2 (09:06→20:28)
[2018-06-06] MEDS: LEVOFLOXACIN 750 MG/150 ML BAG IV SCH (09:06)
[2018-06-06] MEDS: BENZONATATE 100 MG CAPSULE PO PRN (18:53)
[2018-06-06] MEDS: hydrOXYzine 25 MG TABLET PO PRN (20:28)
[2018-06-06] MEDS: ACETAMINOPHEN 325 MG TABLET PO PRN (20:28)
[2018-06-07] MEDS: PIPERACILLIN SODIUM/TAZOBACTAM 3.375 GM in DEXTROSE 5% IN WATER 50 ML IV SCH ×4 (05:24→23:50)
[2018-06-07 05:25] LABS: Basophils # (Auto) 0 K/mcL (0.0-0.3); Basophils % (Auto) 0.2 % (0.0-2.0); Eosinophils # (Auto) 0.1 K/mcL (0.0-0.7); Eosinophils % (Auto) 1.6 % (0.0-7.0); Granulocytes % (Auto) 74.3 % (38.0-78.0); Lymphocytes # (Auto) 0.7 K/mcL (1.5-4.8); Lymphocytes % (Auto) 17.4 % (15.5-49.0); Mean Cell Volume 81.7 fL (80.0-100.0); Mean Corpuscular HGB Conc 33.2 g/dL (31.0-36.0); Monocytes # (Auto) 0.3 K/mcL (0.1-0.9); Monocytes % (Auto) 6.5 % (1.0-12.0); Platelet Count 194 K/mcL (140-440); RBC 4.45 M/mcL (4.00-5.20); Red Cell Distribution Width 14.2 % (11.5-14.5)
[2018-06-07 05:38] LABS: Blood Urea Nitrogen 13 mg/dl (8-23)
--- NOTE | 2018-06-07 07:20 | Internal Med Progress Note ---
Medical - PN: Subj Patient information: Note initiated : 06/07/18 at 7:16 am Service Date, if different from initiated Date: [] Patient: Radha Eric 62 y/o F admitted on 06/03/18 for diarrhea. Chief Complaint: [] Interval history: Ms. Eric is a 62 year old F Who developed signs and symptoms of a sinus infection over she went in to [place] [facility] on Monday and received Augmentin read since taking Augmentin she is developed diarrhea but has shown some improvement in her sinus infection symptoms. She is doing relatively well until yesterday when she started to notice fever, becoming more tired and fatigued, and developing shortness of breath. She also complained of poor appetite. In the ER she is evaluated found to have a temperature of 101.5 and noted to be markedly short of breath requiring oxygen. First obtain a chest x-ray and then a CT chest for further delineation which showed multifocal pneumonia. She has continued diarrhea, C. difficile study in the ER was negative. She does have hyponatremia as well. She was requiring 7 L of oxygen in the ED. Lactic acid was within normal limits. Urinalysis with hyaline casts and ketones. She states her cough is just from some phlegm that is draining down from her sinuses. Patient denies chest pain, but does admit to shortness of breath. She received several liters of normal saline in the ED. 06/04 Cough and shortness of breath slowly improving. Tired. No other new complaints. diarrhea slowing down. 06/05 Increasing oxygen needs last night. Patient sleeping at the time and no respiratory distress. Had fever last night but patient does not feel feverish. Received 40 of Lasix with decent urine output and put on high flow nasal cannula. Cough improving. Dyspnea similar to yesterday she does not feel particularly short of breath, at least while in bed 1/2 Slept a few hours last night. Oxygenation supplementation decreased quite a bit. She is down to 2 L on nasal cannula satting mid 90s and just lowered to 1 L. Plan to get her up moving more today ambulatory with assistance continue weaning down oxygen. 1/3 Slept well last night. No real complaints other than being quite fatigued. Shortness of breath improving, states she felt really tired after transition from bed to chair but did not complain of increased shortness of breath. Productive cough feels like she is getting phlegm from deeper in the chest out. Review of Systems: denies headache/fever/chills/nausea/vomiting/chest or abdominal pain/diarrhea. Otherwise see above. - Constitutional Vitals: Vital Signs Temp Pulse Resp BP Pulse Ox 99.0 F 72 24 H 118/74 91 06/07/18 05:01 06/06/18 19:09 06/07/18 05:01 06/07/18 05:01 06/07/18 05:01 Period Temp Pulse Resp BP Sys/Martins Pulse Ox Last 24 Hr 98.2 F-99.7 F 69-85 15-30 97-118/51-77 30-96 Intake and Output 06/06/18 06/07/18 06/07/18 21:59 05:59 13:59 Intake Total 170 / 170 50 / 50 Output Total 445 / 445 310 / 310 36 / 36 Balance -275 / -275 -260 / -260 -36 / -36 Weight 91.716 kg Intake & Output: Intake & Output 06/06/18 06/07/18 06/07/18 21:59 05:59 13:59 Intake Total 170 / 170 50 / 50 Output Total 445 / 445 310 / 310 36 / 36 Balance -275 / -275 -260 / -260 -36 / -36 Weight 91.716 kg Intake: IV 50 / 50 50 / 50 Zosyn 3.375 gm In Dextrose 5% 50 / 50 50 / 50 in Water 50 ml @ 100 mls/hr IV Q6H [facility] Rx#:[id number] Oral 120 / 120 Output: Urine Catheter Amount 445 / 445 310 / 310 36 / 36 Other: Urine Appearance Clear Clear Clear Uretheral (Lauren) Clear Clear Urine Color Dark Yellow Light Dori Uretheral (Lauren) Light Droi Light Dori Exam: General: Alert, Awake, No acute Distress Eyes/N/T: EOMI, Head/Neck: neck supple, CV: RRR, No murmurs, Pulm: b/l bibase rales, no wheezing Abd: soft, nontender, +BS x4 Ext: no clubbing/cyanosis, trace b/l LE edema Neuro: Alert, no focal deficits, moves all extremities, Skin: warm/dry Medical - PN: Obj Da - Labs CBC & Chem 7: 06/07/18 04:20 06/07/18 04:20 Labs: Abnormal Lab Results 06/07/18 06/07/18 06/06/18 04:20 04:20 04:00 WBC 4.2 L Gran % Lymph # (Auto) 0.7 L RBC Morphology Anisocytosis Calcium 8.2 L AST 63 H Lactate Dehydrogenase 529 H Albumin 3.1 L Albumin/Globulin Ratio 0.9 L 06/06/18 06/05/18 06/05/18 04:00 07:45 04:21 WBC 3.6 L Gran % Lymph # (Auto) 0.9 L RBC Morphology Abnorm A Anisocytosis Few A Calcium 8.3 L AST Lactate Dehydrogenase Albumin Albumin/Globulin Ratio 06/05/18 04:21 WBC 2.7 L Gran % 79.6 H Lymph # (Auto) 0.4 L RBC Morphology Anisocytosis Calcium AST Lactate Dehydrogenase Albumin Albumin/Globulin Ratio Meds: Medications Acetaminophen (Tylenol) 650 mg PO Q4-6HP PRN PRN Reason: PAIN/FEVER > 101 Last Admin: 06/06/18 20:28 Dose: 650 mg Albuterol/Ipratropium (Duoneb) 3 ml NEB Q4HRT PRN PRN Reason: Bronchospasm Benzonatate (Tessalon) 200 mg PO TIDP PRN PRN Reason: Cough Last Admin: 06/06/18 18:53 Dose: 200 mg Enoxaparin Sodium (Lovenox) 40 mg SQ DAILY [facility] Last Admin: 06/06/18 09:06 Dose: 40 mg Famotidine (Pepcid) 20 mg PO BID [facility] Last Admin: 06/06/18 20:28 Dose: 20 mg Hydroxyzine HCl (Atarax) 50 mg PO HSP PRN PRN Reason: Insomnia Last Admin: 06/06/18 20:28 Dose: 50 mg Levofloxacin (Levaquin) 750 mg in 150 mls @ 100 mls/hr IV DAILY [facility] Last Infusion: 06/06/18 10:36 Dose: Infused Piperacillin Sod/Tazobactam (Sod 3.375 gm/ Dextrose) 50 mls @ 100 mls/hr IV Q6H [facility] Last Admin: 06/07/18 05:24 Dose: 100 mls/hr Lactobacillus Rhamnosus (Culturelle) 1 cap PO BID [facility] Last Admin: 06/06/18 20:28 Dose: 1 cap Loperamide HCl (Imodium) 2 mg PO PRN PRN PRN Reason: Diarrhea Last Admin: 06/03/18 20:14 Dose: 2 mg Naproxen (Naprosyn) 500 mg PO BIDP PRN PRN Reason: pain or fever Last Admin: 06/05/18 20:07 Dose: 500 mg Ondansetron HCl (Zofran) 4 mg IV Q4HP PRN PRN Reason: Nausea And Vomiting Last Admin: 06/04/18 11:47 Dose: 4 mg Oseltamivir Phosphate (Tamiflu) 75 mg PO BID [facility] Last Admin: 06/06/18 20:28 Dose: 75 mg Prochlorperazine Maleate (Compazine) 12.5 mg NE Q12HP PRN PRN Reason: Nausea And Vomiting Sodium Chloride (Saline Flush) 10 ml IV Q8 [facility] Last Admin: 06/06/18 20:59 Dose: 10 ml Medical - PN: A/P - Time Spent With Patient Total time spent is greater than 50% in coordination of care (as documented) at patient's floor/unit and/or counseling patient: - Narrative A/P Narrative: A: *Multifocal Pneumonia (INFLUENZA A): ?ARDS -strep UR neg, SC neg *Acute hypoxic respiratory failure: 2/2 above -down to 1.5L NC from Vapotherm, seem to desat more while sleeping *Sepsis: improving -afebrile *Recent Sinus infection *Diarrhea, antibiotic induced: improved, c.diff neg *Volume depletion w/Hypotension on Admit: resolved, did diurese on 06/05 *Hyponatremia: improved *hypokalemia: improved *Leukopenia: 2/2 above, improved *?LAURENT P: -Tamiflu -finish abx for sinus infection, broad emiripic at this time with Zosyn/ Levaquin (MRSA screen neg, no h/o MRSA) -legionella pending -O2 supp and weaning -IS/Acapella -imodum prn -f/u electrolytes and replete prn -ambulate -check BNP again, f/u CXR in AM -ppx: [facility] - PN: Qual - VTE Deep Vein Thrombosis/Pulmonary Embolism Present on Admission: No
[2018-06-07] MEDS: BENZONATATE 100 MG CAPSULE PO PRN ×3 (07:25→19:39)
[2018-06-07] MEDS: ACETAMINOPHEN 325 MG TABLET PO PRN ×3 (07:25→19:39)
[2018-06-07] MEDS: ONDANSETRON 4 MG/2 ML VIAL IV PRN (07:52)
[2018-06-07] MEDS: OSELTAMIVIR PHOSPHATE 75 MG CAPSULE PO SCH ×2 (09:00→21:38)
[2018-06-07] MEDS: FAMOTIDINE 20 MG TABLET PO SCH ×2 (09:00→21:38)
[2018-06-07] MEDS: ENOXAPARIN 40 MG/0.4 ML SYRINGE SQ SCH (09:00)
[2018-06-07] MEDS: LEVOFLOXACIN 750 MG/150 ML BAG IV SCH (09:00)
[2018-06-07] MEDS: LACTOBACILLUS 1 CAPSULE PO SCH ×2 (09:00→21:38)
[2018-06-07] MEDS: 0.9 % SODIUM CHLORIDE 10 ML SYRINGE IV SCH ×3 (09:39→21:39)
[2018-06-07 09:56] LABS: proBNP 153.3 pg/ml (0-125)
[2018-06-07] MEDS ORDERED: PROCHLORPERAZINE 25 MG SUPP.RECT PR PRN (23:26)
[2018-06-07] MEDS ORDERED: NAPROXEN 250 MG TABLET PO PRN (23:26)
[2018-06-07] MEDS ORDERED: ACETAMINOPHEN 325 MG TABLET PO PRN (23:26)
[2018-06-07] MEDS ORDERED: ONDANSETRON 4 MG/2 ML VIAL IV PRN (23:26)
[2018-06-07] MEDS ORDERED: hydrOXYzine 25 MG TABLET PO PRN (23:26)
[2018-06-07] MEDS ORDERED: LOPERAMIDE 2 MG CAPSULE PO PRN (23:26)
[2018-06-07] MEDS ORDERED: IPRATROPIUM/ALBUTEROL 3 ML AMPUL.NEB NEB PRN (23:26)
[2018-06-08] MEDS: PIPERACILLIN SODIUM/TAZOBACTAM 3.375 GM in DEXTROSE 5% IN WATER 50 ML IV SCH (05:07)
[2018-06-08] MEDS: 0.9 % SODIUM CHLORIDE 10 ML SYRINGE IV SCH ×3 (05:48→22:00)
--- NOTE | 2018-06-08 08:18 | Internal Med Progress Note ---
Medical - PN: Subj Patient information: Note initiated : 06/08/18 at 8:15 am Service Date, if different from initiated Date: [] Patient: Radha Eric 62 y/o F admitted on 06/03/18 for diarrhea. Chief Complaint: [] Interval history: Ms. Eric is a 62 year old F Who developed signs and symptoms of a sinus infection over she went in to [place] [facility] on Monday and received Augmentin read since taking Augmentin she is developed diarrhea but has shown some improvement in her sinus infection symptoms. She is doing relatively well until yesterday when she started to notice fever, becoming more tired and fatigued, and developing shortness of breath. She also complained of poor appetite. In the ER she is evaluated found to have a temperature of 101.5 and noted to be markedly short of breath requiring oxygen. First obtain a chest x-ray and then a CT chest for further delineation which showed multifocal pneumonia. She has continued diarrhea, C. difficile study in the ER was negative. She does have hyponatremia as well. She was requiring 7 L of oxygen in the ED. Lactic acid was within normal limits. Urinalysis with hyaline casts and ketones. She states her cough is just from some phlegm that is draining down from her sinuses. Patient denies chest pain, but does admit to shortness of breath. She received several liters of normal saline in the ED. 06/04 Cough and shortness of breath slowly improving. Tired. No other new complaints. diarrhea slowing down. 06/05 Increasing oxygen needs last night. Patient sleeping at the time and no respiratory distress. Had fever last night but patient does not feel feverish. Received 40 of Lasix with decent urine output and put on high flow nasal cannula. Cough improving. Dyspnea similar to yesterday she does not feel particularly short of breath, at least while in bed 1/2 Slept a few hours last night. Oxygenation supplementation decreased quite a bit. She is down to 2 L on nasal cannula satting mid 90s and just lowered to 1 L. Plan to get her up moving more today ambulatory with assistance continue weaning down oxygen. 1/3 Slept well last night. No real complaints other than being quite fatigued. Shortness of breath improving, states she felt really tired after transition from bed to chair but did not complain of increased shortness of breath. Productive cough feels like she is getting phlegm from deeper in the chest out. 1/ Slept okay. Feels her cough is loosening up and I will cough more phlegm out. States her shortness of breath is improving as well better than yesterday. No other pains or complaints. She is able to ambulate more without becoming exhausted. Review of Systems: denies headache/fever/chills/nausea/vomiting/chest or abdominal pain/diarrhea. Otherwise see above. - Constitutional Vitals: Vital Signs Temp Pulse Resp BP Pulse Ox 96.8 F L 78 18 126/81 90 06/08/18 06:58 06/08/18 06:58 06/08/18 06:58 06/08/18 06:58 06/08/18 06:58 Period Temp Pulse Resp BP Sys/Martins Pulse Ox Last 24 Hr 96.8 F-100.3 F 67-94 17-36 113-130/69-82 85-96 Intake and Output 06/07/18 06/08/18 06/08/18 21:59 05:59 13:59 Intake Total 50 / 1400 500 / 1400 120 / 120 Output Total 229 / 751 300 / 751 Balance -179 / 649 200 / 649 120 / 120 Weight 91.58 kg Intake & Output: Intake & Output 06/07/18 06/08/18 06/08/18 21:59 05:59 13:59 Intake Total 50 / 1400 500 / 1400 120 / 120 Output Total 229 / 751 300 / 751 Balance -179 / 649 200 / 649 120 / 120 Weight 91.58 kg Intake: IV 50 / 250 100 / 250 Zosyn 3.375 gm In Dextrose 5% 50 / 250 100 / 250 in Water 50 ml @ 100 mls/hr IV Q6H [facility] Rx#:[id number] Oral 400 / 1000 120 / 120 Output: Urine Catheter Amount 229 / 451 Void Amount 300 / 300 Other: Meal Breakfast Percent of Meal Consumed 75% Urine Appearance Clear Clear Uretheral (Lauren) Clear Urine Color Light Dori Light Dori Uretheral (Lauren) Light Dori Urine Odor Strong Exam: General: Alert, Awake, No acute Distress Eyes/N/T: EOMI, Head/Neck: neck supple, CV: RRR, No murmurs, Pulm: b/l bibase rales, no wheezing Abd: soft, nontender, +BS x4 Ext: no clubbing/cyanosis, trace b/l LE edema Neuro: Alert, no focal deficits, moves all extremities, Skin: warm/dry Medical - PN: Obj Da - Labs CBC & Chem 7: 06/07/18 04:20 06/07/18 04:20 Labs: Abnormal Lab Results 06/07/18 06/07/18 06/07/18 09:05 04:20 04:20 WBC 4.2 L Lymph # (Auto) 0.7 L RBC Morphology Anisocytosis Calcium 8.2 L AST Lactate Dehydrogenase NT-Pro-B Natriuret Pep 153.3 H Albumin Albumin/Globulin Ratio 06/06/18 06/06/18 06/05/18 04:00 04:00 07:45 WBC 3.6 L Lymph # (Auto) 0.9 L RBC Morphology Abnorm A Anisocytosis Few A Calcium AST 63 H Lactate Dehydrogenase 529 H NT-Pro-B Natriuret Pep Albumin 3.1 L Albumin/Globulin Ratio 0.9 L Meds: Medications Acetaminophen (Tylenol) 650 mg PO Q4-6HP PRN PRN Reason: PAIN/FEVER > 101 Albuterol/Ipratropium (Duoneb) 3 ml NEB Q4HRT PRN PRN Reason: Bronchospasm Benzonatate (Tessalon) 200 mg PO TIDP PRN PRN Reason: Cough Enoxaparin Sodium (Lovenox) 40 mg SQ DAILY [facility] Famotidine (Pepcid) 20 mg PO BID [facility] Hydroxyzine HCl (Atarax) 50 mg PO HSP PRN PRN Reason: Insomnia Levofloxacin (Levaquin) 750 mg in 150 mls @ 100 mls/hr IV Q24H [facility] Piperacillin Sod/Tazobactam (Sod 3.375 gm/ Dextrose) 50 mls @ 100 mls/hr IV Q6H [facility] Last Infusion: 06/08/18 05:48 Dose: Infused Documented by: Lactobacillus Rhamnosus (Culturelle) 1 cap PO BID [facility] Loperamide HCl (Imodium) 2 mg PO PRN PRN PRN Reason: Diarrhea Naproxen (Naprosyn) 500 mg PO BIDP PRN PRN Reason: pain or fever Ondansetron HCl (Zofran) 4 mg IV Q4HP PRN PRN Reason: Nausea And Vomiting Prochlorperazine Maleate (Compazine) 12.5 mg [place] Q12HP PRN PRN Reason: Nausea And Vomiting Sodium Chloride (Saline Flush) 10 ml IV Q8 [facility] Last Admin: 06/08/18 05:48 Dose: 10 ml Documented by: Medical - PN: A/P - Time Spent With Patient Total time spent is greater than 50% in coordination of care (as documented) at patient's floor/unit and/or counseling patient: - Narrative A/P Narrative: A: *Multifocal Pneumonia (INFLUENZA A): ?ARDS -strep UR neg, SC neg *Acute hypoxic respiratory failure: 2/2 above -down to 1.5L NC from Vapotherm, seem to desat more while sleeping *Sepsis: improved -afebrile *Recent Sinus infection *Diarrhea, antibiotic induced: improved, c.diff neg *Volume depletion w/Hypotension on Admit: resolved, did diurese on 06/05 *Hyponatremia: resolved *hypokalemia: rersoled *Leukopenia: 2/2 above, improved *?LAURENT P: -Tamiflu -finish abx for sinus infection, broad emiripic at this time with Zosyn/Levaquin (MRSA screen neg, no h/o MRSA) -legionella pending -O2 supp and weaning -IS/Acapella -imodum prn -f/u electrolytes and replete prn -ambulate -check BNP again, f/u CXR in AM -recommend outpt sleep study -ppx: [facility] - PN: Qual - VTE Deep Vein Thrombosis/Pulmonary Embolism Present on Admission: No
[2018-06-08] MEDS ORDERED: FUROSEMIDE 20 MG/2 ML VIAL IV ONE (08:20)
[2018-06-08] MEDS ORDERED: ALBUMIN HUMAN 12.5 GM/50 ML BAG IV ONE (08:20)
--- NOTE | 2018-06-08 08:45 | XRay Report ---
HISTORY: Influenza pneumonia FINDINGS: There is moderate pneumonia throughout both lungs. This has a patchy distribution with the greatest involvement in the periphery of the left lung. No pleural effusion is present. The heart size is within normal limits. This has not changed significantly since 06/06/18. No pneumothorax is present. IMPRESSION: Stable moderate widespread bilateral pneumonia Interpreted and Authenticated by: Vitaly Armenta 06/08/18
[2018-06-08] MEDS: ENOXAPARIN 40 MG/0.4 ML SYRINGE SQ SCH (08:58)
[2018-06-08] MEDS: BENZONATATE 100 MG CAPSULE PO PRN ×2 (08:59→16:12)
[2018-06-08] MEDS: LACTOBACILLUS 1 CAPSULE PO SCH ×2 (09:42→22:52)
[2018-06-08] MEDS: LEVOFLOXACIN 750 MG/150 ML BAG IV SCH (09:43)
[2018-06-08] MEDS: FAMOTIDINE 20 MG TABLET PO SCH ×2 (09:43→22:52)
[2018-06-09] MEDS: 0.9 % SODIUM CHLORIDE 10 ML SYRINGE IV SCH ×4 (05:58→20:25)
[2018-06-09] MEDS: BENZONATATE 100 MG CAPSULE PO PRN ×3 (07:01→22:37)
[2018-06-09 07:59] LABS: ALT/SGPT 58 U/l (0-40); Albumin 2.8 gm/dL (3.2-5.2); Albumin/Globulin Ratio 0.6 (1.0-2.3); Alkaline Phosphatase 71 U/L (39-117); Bilirubin,Direct < 0.2 mg/dL (0.0-0.3); Blood Urea Nitrogen 8 mg/dl (8-23); Gamma Glutamyl Transpeptidase 43 U/L (5-36); Uric Acid 3.6 mg/dL (2.5-8.0)
[2018-06-09 08:01] LABS: Basophils # (Auto) 0 K/mcL (0.0-0.3); Basophils % (Auto) 0.1 % (0.0-2.0); Eosinophils # (Auto) 0.1 K/mcL (0.0-0.7); Eosinophils % (Auto) 1.1 % (0.0-7.0); Granulocytes % (Auto) 81.4 % (38.0-78.0); Lymphocytes # (Auto) 0.6 K/mcL (1.5-4.8); Lymphocytes % (Auto) 10.2 % (15.5-49.0); Mean Cell Volume 81.6 fL (80.0-100.0); Mean Corpuscular HGB Conc 32.9 g/dL (31.0-36.0); Monocytes # (Auto) 0.4 K/mcL (0.1-0.9); Monocytes % (Auto) 7.2 % (1.0-12.0); Platelet Count 286 K/mcL (140-440); Red Cell Distribution Width 13.7 % (11.5-14.5)
[2018-06-09] MEDS: LACTOBACILLUS 1 CAPSULE PO SCH ×2 (09:06→20:25)
[2018-06-09] MEDS: FAMOTIDINE 20 MG TABLET PO SCH ×2 (09:06→20:25)
[2018-06-09] MEDS: ENOXAPARIN 40 MG/0.4 ML SYRINGE SQ SCH (09:07)
[2018-06-09] MEDS: LEVOFLOXACIN 750 MG/150 ML BAG IV SCH (09:07)
--- NOTE | 2018-06-09 09:20 | Internal Med Progress Note ---
Medical - PN: Subj Patient information: Note initiated : 06/09/18 at 9:18 am Service Date, if different from initiated Date: [] Patient: Radha Eric 62 y/o F admitted on 06/03/18 for diarrhea. Chief Complaint: [] Interval history: Ms. Eric is a 62 year old F Who developed signs and symptoms of a sinus infection over she went in to [place] [facility] on Monday and received Augmentin read since taking Augmentin she is developed diarrhea but has shown some improvement in her sinus infection symptoms. She is doing relatively well until yesterday when she started to notice fever, becoming more tired and fatigued, and developing shortness of breath. She also complained of poor appetite. In the ER she is evaluated found to have a temperature of 101.5 and noted to be markedly short of breath requiring oxygen. First obtain a chest x-ray and then a CT chest for further delineation which showed multifocal pneumonia. She has continued diarrhea, C. difficile study in the ER was negative. She does have hy ponatremia as well. She was requiring 7 L of oxygen in the ED. Lactic acid was within normal limits. Urinalysis with hyaline casts and ketones. She states her cough is just from some phlegm that is draining down from her sinuses. Patient denies chest pain, but does admit to shortness of breath. She received several liters of normal saline in the ED. 06/04 Cough and shortness of breath slowly improving. Tired. No other new complaints. diarrhea slowing down. 06/05 Increasing oxygen needs last night. Patient sleeping at the time and no respiratory distress. Had fever last night but patient does not feel feverish. Received 40 of Lasix with decent urine output and put on high flow nasal cannula. Cough improving. Dyspnea similar to yesterday she does not feel particularly short of breath, at least while in bed 1/2 Slept a few hours last night. Oxygenation supplementation decreased quite a bit. She is down to 2 L on nasal cannula satting mid 90s and just lowered to 1 L. Plan to get her up moving more today ambulatory with assistance continue weaning down oxygen. 1/3 Slept well last night. No real complaints other than being quite fatigued. Shortness of breath improving, states she felt really tired after transition from bed to chair but did not complain of increased shortness of breath. Productive cough feels like she is getting phlegm from deeper in the chest out. 06/08 Slept okay. Feels her cough is loosening up and I will cough more phlegm out. States her shortness of breath is improving as well better than yesterday. No other pains or complaints. She is able to ambulate more without becoming exhausted. 06/09- patient doing well. No overnight events. Clinically improving. Clinical shortness of breath. Currently on 4 L oxygen. Tachypneic improving. Afebrile. No concerns expressed nursing staff. Tolerating diet. White count 6.2. Persistent cough. Patient was returned home with 's assistance. - Constitutional Vitals: Vital Signs Temp Pulse Resp BP Pulse Ox 98.6 F 90 35 H 152/90 92 06/09/18 06:46 06/09/18 07:21 06/09/18 07:21 06/09/18 06:46 06/09/18 07:21 Period Temp Pulse Resp BP Sys/Martins Pulse Ox Last 24 Hr 96.5 F-99.6 F 55-90 18-35 116-152/67-90 90-93 Intake and Output 06/08/18 06/09/18 06/09/18 21:59 05:59 13:59 Intake Total 700 / 970 Output Total 1701 / 1702 2 Balance -1701 / -732 699 / -732 Weight 198 lb 8 oz Intake & Output: Intake & Output 06/08/18 06/09/18 06/09/18 21:59 05:59 13:59 Intake Total 700 / 970 Output Total 1701 / 1702 1701 Balance -1701 / -732 699 / -732 Weight 198 lb 8 oz Intake: Oral 700 / 820 Output: Urine Catheter Amount 1700 / 1700 # of times incontinent of urine 2 Other: Urine Appearance Clear Urine Color Bright Yellow # Voids 1 1 General appearance: no acute distress Exam: Alert oriented On 4 L oxygen Minimally labored breathing Mild anxiety Medical - PN: Obj Da - Labs CBC & Chem 7: 06/09/18 05:41 06/09/18 05:41 Labs: Abnormal Lab Results 06/09/18 06/09/18 06/07/18 05:41 05:41 09:05 WBC Hgb 11.8 L Hct 35.9 L Gran % 81.4 H Lymph % (Auto) 10.2 L Lymph # (Auto) 0.6 L Calcium Phosphorus 2.3 L GGT 43 H AST 77 H ALT 58 H Lactate Dehydrogenase 430 H NT-Pro-B Natriuret Pep 153.3 H Albumin 2.8 L Globulin 4.4 H Albumin/Globulin Ratio 0.6 L 06/07/18 06/07/18 04:20 04:20 WBC 4.2 L Hgb Hct Gran % Lymph % (Auto) Lymph # (Auto) 0.7 L Calcium 8.2 L Phosphorus GGT AST ALT Lactate Dehydrogenase NT-Pro-B Natriuret Pep Albumin Globulin Albumin/Globulin Ratio Meds: Medications Acetaminophen (Tylenol) 650 mg PO Q4-6HP PRN PRN Reason: PAIN/FEVER > 101 Albuterol/Ipratropium (Duoneb) 3 ml NEB Q4HRT PRN PRN Reason: Bronchospasm Benzonatate (Tessalon) 200 mg PO TIDP PRN PRN Reason: Cough Last Admin: 06/09/18 07:01 Dose: 200 mg Documented by: Enoxaparin Sodium (Lovenox) 40 mg SQ DAILY [facility] Last Admin: 06/09/18 09:07 Dose: 40 mg Documented by: Famotidine (Pepcid) 20 mg PO BID [facility] Last Admin: 06/09/18 09:06 Dose: 20 mg Documented by: Hydroxyzine HCl (Atarax) 50 mg PO HSP PRN PRN Reason: Insomnia Levofloxacin (Levaquin) 750 mg in 150 mls @ 100 mls/hr IV Q24H [facility] Last Admin: 06/09/18 09:07 Dose: 100 mls/hr Documented by: Lactobacillus Rhamnosus (Culturelle) 1 cap PO BID [facility] Last Admin: 06/09/18 09:06 Dose: 1 cap Documented by: Loperamide HCl (Imodium) 2 mg PO PRN PRN PRN Reason: Diarrhea Last Admin: 06/08/18 09:00 Dose: 2 mg Documented by: Naproxen (Naprosyn) 500 mg PO BIDP PRN PRN Reason: pain or fever Ondansetron HCl (Zofran) 4 mg IV Q4HP PRN PRN Reason: Nausea And Vomiting Prochlorperazine Maleate (Compazine) 12.5 mg [place] Q12HP PRN PRN Reason: Nausea And Vomiting Sodium Chloride (Saline Flush) 10 ml IV Q8 [facility] Last Admin: 06/09/18 05:58 Dose: 10 ml Documented by: Medical - PN: A/P - Time Spent With Patient Total time spent is greater than 50% in coordination of care (as documented) at patient's floor/unit and/or counseling patient: 25 - 35 minutes (1) Multifocal pneumonia Status: Acute Assessment and plan: * Multifocal pneumonia secondary to influenza- acute lung injury. Gradual improvement noted now on 4 L oxygen. On Levaquin * Hypoxic respiratory failure secondary to acute lung injury secondary to above. Continue supplemental oxygen/RT support * Sepsis clinically improving * Full code Plan * Continue antibiotic coverage * Wean oxygen as tolerated * PT OT RT treatments * Prophylaxis Lovenox Current Visit: Yes Medical - PN: Qual - VTE Deep Vein Thrombosis/Pulmonary Embolism Present on Admission: No
[2018-06-10] MEDS ORDERED: BISACODYL 10 MG SUPP.RECT PR PRN ×2 (01:44→09:51)
[2018-06-10] MEDS ORDERED: MAGNESIUM HYDROXIDE 30 ML ORAL.SUSP PO PRN ×2 (01:44→09:51)
[2018-06-10] MEDS ORDERED: FLEETS ADULT ENEMA PR PRN ×2 (01:44→09:51)
[2018-06-10] MEDS ORDERED: MAGNESIUM HYDROXIDE 30 ML ORAL.SUSP ONE (03:51)
[2018-06-10] MEDS: 0.9 % SODIUM CHLORIDE 10 ML SYRINGE IV SCH ×3 (03:59→22:14)
--- NOTE | 2018-06-10 06:47 | Internal Med Progress Note ---
Medical - PN: Subj Patient information: Note initiated : 06/10/18 at 6:45 am Service Date, if different from initiated Date: [] Patient: Radha Eric 62 y/o F admitted on 06/03/18 for diarrhea. Chief Complaint: [] Interval history: Ms. Eric is a 62 year old F Who developed signs and symptoms of a sinus infection over she went in to [place] [facility] on Monday and received Augmentin read since taking Augmentin she is developed diarrhea but has shown some improvement in her sinus infection symptoms. She is doing relatively well until yesterday when she started to notice fever, becoming more tired and fatigued, and developing shortness of breath. She also complained of poor appetite. In the ER she is evaluated found to have a temperature of 101.5 and noted to be markedly short of breath requiring oxygen. First obtain a chest x-ray and then a CT chest for further delineation which showed multifocal pneumonia. She has continued diarrhea, C. difficile study in the ER was negative. She does have hy ponatremia as well. She was requiring 7 L of oxygen in the ED. Lactic acid was within normal limits. Urinalysis with hyaline casts and ketones. She states her cough is just from some phlegm that is draining down from her sinuses. Patient denies chest pain, but does admit to shortness of breath. She received several liters of normal saline in the ED. 06/04 Cough and shortness of breath slowly improving. Tired. No other new complaints. diarrhea slowing down. 06/05 Increasing oxygen needs last night. Patient sleeping at the time and no respiratory distress. Had fever last night but patient does not feel feverish. Received 40 of Lasix with decent urine output and put on high flow nasal cannula. Cough improving. Dyspnea similar to yesterday she does not feel particularly short of breath, at least while in bed 1/2 Slept a few hours last night. Oxygenation supplementation decreased quite a bit. She is down to 2 L on nasal cannula satting mid 90s and just lowered to 1 L. Plan to get her up moving more today ambulatory with assistance continue weaning down oxygen. 1/3 Slept well last night. No real complaints other than being quite fatigued. Shortness of breath improving, states she felt really tired after transition from bed to chair but did not complain of increased shortness of breath. Productive cough feels like she is getting phlegm from deeper in the chest out. 06/08 Slept okay. Feels her cough is loosening up and I will cough more phlegm out. States her shortness of breath is improving as well better than yesterday. No other pains or complaints. She is able to ambulate more without becoming exhausted. 06/09- patient doing well. No overnight events. Clinically improving. Clinical shortness of breath. Currently on 4 L oxygen. Tachypneic improving. Afebrile. No concerns expressed nursing staff. Tolerating diet. White count 6.2. Persistent cough. Patient was returned home with 's assistance. 06/10-patient requiring 10 L oxygen. Nurse concerned this morning. Stat x-ray of x-ray ordered. Patient denies increasing effort of breathing however desaturates on minimal exertion requiring 15 L. Alert oriented and able to talk in full sentences. Completed Tamiflu - Constitutional Vitals: Vital Signs Temp Pulse Resp BP Pulse Ox 98.5 F 82 22 136/85 91 06/10/18 06:33 06/10/18 03:56 06/10/18 03:56 06/10/18 06:33 06/10/18 06:33 Period Temp Pulse Resp BP Sys/Martins Pulse Ox Last 24 Hr 97.8 F-98.6 F 78-90 20-35 125-152/73-90 88-93 Intake and Output 06/09/18 06/10/18 06/10/18 21:59 05:59 13:59 Intake Total 100 / 250 Output Total 250 / 450 200 / 450 Balance -250 / -200 -100 / -200 Weight 199 lb Intake & Output: Intake & Output 06/09/18 06/10/18 06/10/18 21:59 05:59 13:59 Intake Total 100 / 250 Output Total 250 / 450 200 / 450 Balance -250 / -200 -100 / -200 Weight 199 lb Intake: Oral 100 / 100 Output: Void Amount 250 / 450 200 / 450 Other: Urine Color Dark Dori # Voids 1 General appearance: no acute distress Exam: On 10 L oxygen Alert oriented No anxiety Medical - PN: Obj Da - Labs CBC & Chem 7: 06/09/18 05:41 06/09/18 05:41 Labs: Abnormal Lab Results 06/09/18 06/09/18 06/07/18 05:41 05:41 09:05 Hgb 11.8 L Hct 35.9 L Gran % 81.4 H Lymph % (Auto) 10.2 L Lymph # (Auto) 0.6 L Phosphorus 2.3 L GGT 43 H AST 77 H ALT 58 H Lactate Dehydrogenase 430 H NT-Pro-B Natriuret Pep 153.3 H Albumin 2.8 L Globulin 4.4 H Albumin/Globulin Ratio 0.6 L Meds: Medications Acetaminophen (Tylenol) 650 mg PO Q4-6HP PRN PRN Reason: PAIN/FEVER > 101 Last Admin: 06/09/18 16:59 Dose: 650 mg Documented by: Albuterol/Ipratropium (Duoneb) 3 ml NEB Q4HRT PRN PRN Reason: Bronchospasm Last Admin: 06/10/18 05:38 Dose: 3 ml Documented by: Albuterol/Ipratropium (Duoneb) 3 ml NEB Q4HRT [facility] Benzonatate (Tessalon) 200 mg PO TIDP PRN PRN Reason: Cough Last Admin: 06/09/18 22:37 Dose: 200 mg Documented by: Bisacodyl (Dulcolax) 10 mg OH Q2-3DAYS PRN PRN Reason: Constipation Docusate Sodium (Colace) 100 mg PO BID [facility] Enoxaparin Sodium (Lovenox) 40 mg SQ DAILY [facility] Last Admin: 06/09/18 09:07 Dose: 40 mg Documented by: Famotidine (Pepcid) 20 mg PO BID [facility] Last Admin: 06/09/18 20:25 Dose: 20 mg Documented by: Hydroxyzine HCl (Atarax) 50 mg PO HSP PRN PRN Reason: Insomnia Last Admin: 06/09/18 22:37 Dose: 50 mg Documented by: Levofloxacin (Levaquin) 750 mg in 150 mls @ 100 mls/hr IV Q24H [facility] Last Infusion: 06/09/18 11:53 Dose: Infused Documented by: Lactobacillus Rhamnosus (Culturelle) 1 cap PO BID [facility] Last Admin: 06/09/18 20:25 Dose: 1 cap Documented by: Loperamide HCl (Imodium) 2 mg PO PRN PRN PRN Reason: Diarrhea Last Admin: 06/08/18 09:00 Dose: 2 mg Documented by: Magnesium Hydroxide (Milk Of Magnesia) 30 ml PO DAILYP PRN PRN Reason: Constipation Naproxen (Naprosyn) 500 mg PO BIDP PRN PRN Reason: pain or fever Ondansetron HCl (Zofran) 4 mg IV Q4HP PRN PRN Reason: Nausea And Vomiting Prochlorperazine Maleate (Compazine) 12.5 mg OH Q12HP PRN PRN Reason: Nausea And Vomiting Sodium Biphosphate/Sodium Phosphate (Fleets Adult) 1 dose OH Q3-4DAYS PRN PRN Reason: Constipation Sodium Chloride (Saline Flush) 10 ml IV Q8 [facility] Last Admin: 06/10/18 03:59 Dose: 10 ml Documented by: Medical - PN: A/P - Time Spent With Patient Total time spent is greater than 50% in coordination of care (as documented) at patient's floor/unit and/or counseling patient: 25 - 35 minutes (1) Multifocal pneumonia Status: Acute Assessment and plan: * Acute worsening of hypoxia spell of feeling down 10 L oxygen large AA gradient. Await chest x-ray. Likely influenza related acute lung injury. Continue supplemental oxygen/RT support. Chest X mesentery * Multifocal pneumonia secondary to influenza- acute lung injury. Now on 10L oxygen. Continue Levaquin. * Sepsis clinically improving * Full code Plan * Chest imaging * Continuous pulse ox * PT OT RT treatments * Prophylaxis Lovenox Current Visit: Yes Medical - PN: Qual - VTE Deep Vein Thrombosis/Pulmonary Embolism Present on Admission: No
[2018-06-10] MEDS ORDERED: IPRATROPIUM/ALBUTEROL 3 ML AMPUL.NEB NEB SCH (07:00)
[2018-06-10 07:14] LABS: Mean Cell Volume 81.2 fL (80.0-100.0); Mean Corpuscular HGB Conc 33.2 g/dL (31.0-36.0); Platelet Count 374 K/mcL (140-440); RBC 4.57 M/mcL (4.00-5.20); Red Cell Distribution Width 13.6 % (11.5-14.5)
[2018-06-10 07:33] LABS: ALT/SGPT 56 U/l (0-40); Albumin 3.2 gm/dL (3.2-5.2); Albumin/Globulin Ratio 0.8 (1.0-2.3); Alkaline Phosphatase 71 U/L (39-117); Bilirubin,Direct < 0.2 mg/dL (0.0-0.3); Blood Urea Nitrogen 9 mg/dl (8-23); Gamma Glutamyl Transpeptidase 43 U/L (5-36); Uric Acid 4.3 mg/dL (2.5-8.0)
[2018-06-10 07:46] LABS: Lymphocytes % 16 % (15-49); Monocytes % (Manual) 5 % (1-12); Platelet Estimate NORMAL (NORMAL); RBC Morphology NORMAL (NORMAL); Segmented Neutrophils % 79 % (38-78)
[2018-06-10] MEDS ORDERED: DOCUSATE SODIUM 100 MG CAPSULE PO SCH (09:00)
[2018-06-10] MEDS: ENOXAPARIN 40 MG/0.4 ML SYRINGE SQ SCH (09:07)
[2018-06-10] MEDS: FAMOTIDINE 20 MG TABLET PO SCH ×2 (09:07→20:22)
--- NOTE | 2018-06-10 09:25 | XRay Report ---
HISTORY: Pulmonary infiltrates and hypoxia FINDINGS: Throughout both lungs with the greatest involvement in the periphery of the left lung. There has been mild improvement since 06/05/18. The heart is borderline enlarged but magnified by portable technique. Pulmonary vessels are obscured by the infiltrates. No pleural effusion is detected. IMPRESSION: Widespread pulmonary infiltrates with subtle improvement Interpreted and Authenticated by: Vitaly Armenta 06/10/18
[2018-06-10] MEDS ORDERED: NAPROXEN 250 MG TABLET PO PRN (09:51)
[2018-06-10] MEDS ORDERED: LOPERAMIDE 2 MG CAPSULE PO PRN (09:51)
[2018-06-10] MEDS ORDERED: hydrOXYzine 25 MG TABLET PO PRN (09:51)
[2018-06-10] MEDS ORDERED: PROCHLORPERAZINE 25 MG SUPP.RECT PR PRN (09:51)
[2018-06-10] MEDS ORDERED: VANCOMYCIN PER PHARMACY IV ONE (09:51)
[2018-06-10] MEDS ORDERED: VANCOMYCIN PER PHARMACY IV SCH (09:51)
[2018-06-10] MEDS: IPRATROPIUM/ALBUTEROL 3 ML AMPUL.NEB NEB SCH ×4 (10:37→23:26)
[2018-06-10] MEDS: FUROSEMIDE 20 MG TABLET PO SCH ×2 (10:55→17:46)
[2018-06-10] MEDS: VANCOMYCIN 1,000 MG in 0.9 % SODIUM CHLORIDE 250 ML IV SCH ×2 (10:56→22:14)
--- NOTE | 2018-06-10 10:57 | Internal Med Progress Note ---
Medical - PN: Subj Patient information: Note initiated : 06/10/18 at 10:56 am Service Date, if different from initiated Date: [] Patient: Radha Eric 62 y/o F admitted on 06/03/18 for diarrhea. Chief Complaint: [] Interval history: Ms. Eric is a 62 year old F Who developed signs and symptoms of a sinus infection over she went in to [place] care on Monday and received Augmentin read since taking Augmentin she is developed diarrhea but has shown some improvement in her sinus infection symptoms. She is doing relatively well until yesterday when she started to notice fever, becoming more tired and fatigued, and developing shortness of breath. She also complained of poor appetite. In the ER she is evaluated found to have a temperature of 101.5 and noted to be markedly short of breath requiring oxygen. First obtain a chest x-ray and then a CT chest for further delineation which showed multifocal pneumonia. She has continued diarrhea, C. difficile study in the ER was negative. She does have hy ponatremia as well. She was requiring 7 L of oxygen in the ED. Lactic acid was within normal limits. Urinalysis with hyaline casts and ketones. She states her cough is just from some phlegm that is draining down from her sinuses. Patient denies chest pain, but does admit to shortness of breath. She received several liters of normal saline in the ED. 06/04 Cough and shortness of breath slowly improving. Tired. No other new complaints. diarrhea slowing down. 06/05 Increasing oxygen needs last night. Patient sleeping at the time and no respiratory distress. Had fever last night but patient does not feel feverish. Received 40 of Lasix with decent urine output and put on high flow nasal cannula. Cough improving. Dyspnea similar to yesterday she does not feel particularly short of breath, at least while in bed 1/2 Slept a few hours last night. Oxygenation supplementation decreased quite a bit. She is down to 2 L on nasal cannula satting mid 90s and just lowered to 1 L. Plan to get her up moving more today ambulatory with assistance continue weaning down oxygen. 1/3 Slept well last night. No real complaints other than being quite fatigued. Shortness of breath improving, states she felt really tired after transition from bed to chair but did not complain of increased shortness of breath. Productive cough feels like she is getting phlegm from deeper in the chest out. 06/08 Slept okay. Feels her cough is loosening up and I will cough more phlegm out. States her shortness of breath is improving as well better than yesterday. No other pains or complaints. She is able to ambulate more without becoming exhausted. 06/09- patient doing well. No overnight events. Clinically improving. Clinical shortness of breath. Currently on 4 L oxygen. Tachypneic improving. Afebrile. No concerns expressed nursing staff. Tolerating diet. White count 6.2. Persistent cough. Patient was returned home with 's assistance. 06/10-patient requiring 10 L oxygen. Nurse concerned this morning. Stat x-ray of x-ray ordered. Patient denies increasing effort of breathing however desaturates on minimal exertion requiring 15 L. Alert oriented and able to talk in full sentences. Completed Tamiflu Review of Systems: denies headache/fever/chills/nausea/vomiting/chest or abdominal pain/diarrhea. Otherwise see above. - Constitutional Vitals: Vital Signs Temp Pulse Resp BP Pulse Ox 98.5 F 90 27 H 136/85 95 06/10/18 06:33 06/10/18 09:30 06/10/18 09:30 06/10/18 06:33 06/10/18 09:30 Period Temp Pulse Resp BP Sys/Martins Pulse Ox Last 24 Hr 97.8 F-98.5 F 78-90 20-28 125-146/73-87 88-95 Intake and Output 06/09/18 06/10/18 06/10/18 21:59 05:59 13:59 Intake Total 100 / 250 120 / 120 Output Total 250 / 450 200 / 450 Balance -250 / -200 -100 / -200 120 / 120 Weight 90.265 kg Intake & Output: Intake & Output 06/09/18 06/10/18 06/10/18 21:59 05:59 13:59 Intake Total 100 / 250 120 / 120 Output Total 250 / 450 200 / 450 Balance -250 / -200 -100 / -200 120 / 120 Weight 90.265 kg Intake: Oral 100 / 100 120 / 120 Output: Void Amount 250 / 450 200 / 450 Other: Meal Breakfast Percent of Meal Consumed 100% Urine Color Dark Dori # Voids 1 Exam: 06/09- patient doing well. No overnight events. Clinically improving. Clinical shortness of breath. Currently on 4 L oxygen. Tachypneic improving. Afebrile. No concerns expressed nursing staff. Tolerating diet. White count 6.2. Persistent cough. Patient was returned home with 's assistance. 06/10-patient requiring 10 L oxygen. Nurse concerned this morning. Stat x-ray of x-ray ordered. Patient denies increasing effort of breathing however desat urates on minimal exertion requiring 15 L. Alert oriented and able to talk in full sentences. Completed Tamiflu Medical - PN: Obj Da - Labs CBC & Chem 7: 06/10/18 06:27 06/10/18 06:27 Labs: Abnormal Lab Results 06/10/18 06/10/18 06/09/18 06:27 06:27 05:41 Hgb Hct Gran % Lymph % (Auto) Lymph # (Auto) Seg Neutrophils % 79 H Potassium 3.2 L Glucose 114 H Phosphorus 2.3 L GGT 43 H 43 H AST 60 H 77 H ALT 56 H 58 H Lactate Dehydrogenase 358 H 430 H Albumin 2.8 L Globulin 4.2 H 4.4 H Albumin/Globulin Ratio 0.8 L 0.6 L 06/09/18 05:41 Hgb 11.8 L Hct 35.9 L Gran % 81.4 H Lymph % (Auto) 10.2 L Lymph # (Auto) 0.6 L Seg Neutrophils % Potassium Glucose Phosphorus GGT AST ALT Lactate Dehydrogenase Albumin Globulin Albumin/Globulin Ratio Meds: Medications Acetaminophen (Tylenol) 650 mg PO Q4-6HP PRN PRN Reason: PAIN/FEVER > 101 Albuterol/Ipratropium (Duoneb) 3 ml NEB Q4HRT PRN PRN Reason: Bronchospasm Albuterol/Ipratropium (Duoneb) 3 ml NEB Q4HRT [facility] Last Admin: 06/10/18 10:37 Dose: 3 ml Documented by: Benzonatate (Tessalon) 200 mg PO TIDP PRN PRN Reason: Cough Bisacodyl (Dulcolax) 10 mg IA Q2-3DAYS PRN PRN Reason: Constipation Docusate Sodium (Colace) 100 mg PO BID [facility] Enoxaparin Sodium (Lovenox) 40 mg SQ DAILY [facility] Famotidine (Pepcid) 20 mg PO BID [facility] Furosemide (Lasix) 20 mg PO BIDD [facility] Last Admin: 06/10/18 10:55 Dose: 20 mg Documented by: Hydroxyzine HCl (Atarax) 50 mg PO HSP PRN PRN Reason: Insomnia Levofloxacin (Levaquin) 750 mg in 150 mls @ 100 mls/hr IV Q24H [facility] Vancomycin HCl 1,000 mg/ (Sodium Chloride) 250 mls @ 250 mls/hr IV Q12H [facility] Last Admin: 06/10/18 10:56 Dose: 250 mls/hr Documented by: Lactobacillus Rhamnosus (Culturelle) 1 cap PO BID [facility] Loperamide HCl (Imodium) 2 mg PO PRN PRN PRN Reason: Diarrhea Magnesium Hydroxide (Milk Of Magnesia) 30 ml PO DAILYP PRN PRN Reason: Constipation Naproxen (Naprosyn) 500 mg PO BIDP PRN PRN Reason: pain or fever Ondansetron HCl (Zofran) 4 mg IV Q4HP PRN PRN Reason: Nausea And Vomiting Prochlorperazine (Compazine) 12.5 mg IA Q12HP PRN PRN Reason: Nausea And Vomiting Sodium Biphosphate/Sodium Phosphate (Fleets Adult) 1 dose IA Q3-4DAYS PRN PRN Reason: Constipation Sodium Chloride (Saline Flush) 10 ml IV Q8 [facility] Vancomycin HCl (Vancomycin Per Pharmacy) 1 order IV UD [facility] Medical - PN: A/P - Time Spent With Patient Total time spent is greater than 50% in coordination of care (as documented) at patient's floor/unit and/or counseling patient: - Narrative A/P Narrative: A: *Multifocal Pneumonia (INFLUENZA A): with ALI -strep UR neg, Legionella UR neg, SC neg *Acute hypoxic respiratory failure: 2/2 above -on 10L high-flow NC *Sepsis: improved -afebrile *Recent Sinus infection *Diarrhea, antibiotic induced: improved, c.diff neg *Volume depletion w/Hypotension on Admit: resolved, started diurese on 06/05 *Hyponatremia: resolved *hypokalemia: monitor and replete prn *Leukopenia: 2/2 above, resolved *?LAURENT P: -Tamiflu finished -empiriic abx -O2 supp (cont weaning) -nebs/RT, IS/Acapella -Pulmonology consult -lasix -iodum prn -f/u electrolytes and replete prn -ambulate -check BNP again, f/u CXR in AM -recommend outpt sleep study -ppx: lovenox Medical - PN: Qual - VTE Deep Vein Thrombosis/Pulmonary Embolism Present on Admission: No
--- NOTE | 2018-06-10 18:41 | Consultation ---
DATE OF CONSULTATION: 06/10/2018 PULMONARY CONSULTING. REQUESTING CONSULTATION: Dr. Howard. Patient's age is 62. HISTORY OF PRESENT ILLNESS: The patient is a 62-year-old female admitted to [facility] on 06/03/2018. Her prior to presentation illness involved a sense of sinus difficulties around [place], evaluated and treated with Augmentin. This was to a degree complicated by diarrhea, which has not continued to manifest itself with 1 reported stool negative for C. diff in the emergency room. Subsequent followup in that regard is pending. However, the patient deteriorated despite her course of Augmentin, presented to the Emergency Room on 06/03 at which time she was found to have a temperature of 101.5 and testing positive for influenza. The patient denies vomiting with her issue in the GI tract. She is a lifetime nonsmoker. She indicates that she did not get the influenza vaccination this year. 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 There are no unusual pets, plants, or birds in the home. She does not consider herself to be an allergic person. She had traveled to [place] around the 05/05, but has been active and busy with her usual activities since. She denies calf pain or hemoptysis. She describes her sputum is off white and with significant volumes at this time. PAST MEDICAL HISTORY: Essentially as above with the exception of reporting a few pneumonias in childhood, but not after age 10. Never told that she had asthma. REVIEW OF SYSTEMS: Negative except recorded above on detailed questioning. No chest pains, hemoptysis, calf pain, dependent edema, cardiac issues or other. PHYSICAL EXAMINATION: GENERAL: A pleasant 62-year-old female with CPAP mask in place. HEENT: Atraumatic and normocephalic. NECK: Supple. LUNGS: Decreased breath sounds throughout with some crisp interstitial crackles in the right base posteriorly. Acute risk finding as well as scattered rhonchi and areas of consolidation. HEART: Regular S1, S2, difficult to hear through the chest. Not apparent with murmur or gallop. There is no dependent edema. ABDOMEN: Soft. Bowel sounds are present. There is no apparent mass or organomegaly. BONES, JOINTS, AND EXTREMITIES: Without acute changes, and Homans sign is negative. LABORATORY DATA: Collected thus far during the hospitalization included serial CBCs with an initial white blood cell count 5.1; hemoglobin 14.3; and platelet count of 168,000. Subsequently, a decrease in the white count to a carol of 2.7 with a decrease in platelets to 136,000 transiently with recovery. A venous lactic acid was normal at the time of presentation. Chemistries have had elevations of liver enzymes as well as transiently low albumin. Interestingly, her legionella testing is still pending, although urine legionella antigen is not detected. Urine had some hyaline cast, but otherwise pretty unremarkable. Radiographic evaluations have demonstrated significant bilateral pulmonary infiltrates, and a CT scan on presentation demonstrating scattered infiltrates. A current chest x-ray would suggest some progression of that process. IMPRESSION: A pleasant 62-year-old female with influenza, complicated by pneumonia. She was appropriately covered with levofloxacin at presentation initially, but with her clinical course, I have recommended the addition of vancomycin for staph that sometimes likes to come in on top of influenzal viral illness. PLAN: I agree with the addition of respiratory support with CPAP or BiPAP therapy as required to try and decrease FIO2 and preserve alveolar function incase this trends toward a slightly more ARDS picture. Otherwise, as discussed. Thank you for the opportunity to participate in the care of this very pleasant lady. KAVONP:in Job ID: [id number] Doc ID: [id number] Balwinder LIM
[2018-06-10] MEDS: LEVOFLOXACIN 750 MG/150 ML BAG IV SCH (19:09)
[2018-06-10] MEDS: LACTOBACILLUS 1 CAPSULE PO SCH ×2 (19:09→20:24)
[2018-06-10] MEDS: ACETAMINOPHEN 325 MG TABLET PO PRN (20:22)
[2018-06-10] MEDS: DOCUSATE SODIUM 100 MG CAPSULE PO SCH ×2 (20:22→20:47)
[2018-06-11] MEDS: IPRATROPIUM/ALBUTEROL 3 ML AMPUL.NEB NEB SCH ×4 (03:53→19:30)
[2018-06-11 05:33] LABS: Basophils # (Auto) 0 K/mcL (0.0-0.3); Basophils % (Auto) 0.2 % (0.0-2.0); Eosinophils # (Auto) 0.1 K/mcL (0.0-0.7); Granulocytes % (Auto) 72.8 % (38.0-78.0); Lymphocytes # (Auto) 0.8 K/mcL (1.5-4.8); Lymphocytes % (Auto) 13.9 % (15.5-49.0); Mean Cell Volume 82.4 fL (80.0-100.0); Mean Corpuscular HGB Conc 32.9 g/dL (31.0-36.0); Monocytes # (Auto) 0.6 K/mcL (0.1-0.9); Monocytes % (Auto) 11.1 % (1.0-12.0); Platelet Count 424 K/mcL (140-440); RBC 4.07 M/mcL (4.00-5.20); Red Cell Distribution Width 14.1 % (11.5-14.5)
[2018-06-11] MEDS: 0.9 % SODIUM CHLORIDE 10 ML SYRINGE IV SCH ×4 (05:52→22:06)
[2018-06-11 05:53] LABS: ALT/SGPT 48 U/l (0-40); Albumin 2.7 gm/dL (3.2-5.2); Albumin/Globulin Ratio 0.7 (1.0-2.3); Alkaline Phosphatase 63 U/L (39-117); Bilirubin,Direct < 0.2 mg/dL (0.0-0.3); Blood Urea Nitrogen 9 mg/dl (8-23); Gamma Glutamyl Transpeptidase 36 U/L (5-36); Uric Acid 5.1 mg/dL (2.5-8.0)
[2018-06-11] MEDS ORDERED: POTASSIUM CHLORIDE 20 MEQ TABLET PO ONE (07:19)
--- NOTE | 2018-06-11 07:23 | Internal Med Progress Note ---
Medical - PN: Subj Patient information: Note initiated : 06/11/18 at 7:17 am Service Date, if different from initiated Date: [] Patient: Radha Eric 62 y/o F admitted on 06/03/18 for diarrhea. Chief Complaint: [] Interval history: Ms. Eric is a 62 year old F Who developed signs and symptoms of a sinus infection over she went in to [facility] on Monday and received Augmentin read since taking Augmentin she is developed diarrhea but has shown some improvement in her sinus infection symptoms. She is doing relatively well until yesterday when she started to notice fever, becoming more tired and fatigued, and developing shortness of breath. She also complained of poor appetite. In the ER she is evaluated found to have a temperature of 101.5 and noted to be markedly short of breath requiring oxygen. First obtain a chest x-ray and then a CT chest for further delineation which showed multifocal pneumonia. She has continued diarrhea, C. difficile study in the ER was negative. She does have hyponatremia as well. She was requiring 7 L of oxygen in the ED. Lactic acid was within normal limits. Urinalysis with hyaline casts and ketones. She states her cough is just from some phlegm that is draining down from her sinuses. Patient denies chest pain, but does admit to shortness of breath. She received several liters of normal saline in the ED. 06/04 Cough and shortness of breath slowly improving. Tired. No other new complaints. diarrhea slowing down. 06/05 Increasing oxygen needs last night. Patient sleeping at the time and no respiratory distress. Had fever last night but patient does not feel feverish. Received 40 of Lasix with decent urine output and put on high flow nasal cannula. Cough improving. Dyspnea similar to yesterday she does not feel particularly short of breath, at least while in bed 1/2 Slept a few hours last night. Oxygenation supplementation decreased quite a bit. She is down to 2 L on nasal cannula satting mid 90s and just lowered to 1 L. Plan to get her up moving more today ambulatory with assistance continue weaning down oxygen. 1/3 Slept well last night. No real complaints other than being quite fatigued. Shortness of breath improving, states she felt really tired after transition from bed to chair but did not complain of increased shortness of breath. Productive cough feels like she is getting phlegm from deeper in the chest out. 06/08 Slept okay. Feels her cough is loosening up and I will cough more phlegm out. States her shortness of breath is improving as well better than yesterday. No other pains or complaints. She is able to ambulate more without becoming exhausted. 06/09- patient doing well. No overnight events. Clinically improving. Clinical shortness of breath. Currently on 4 L oxygen. Tachypneic improving. Afebrile. No concerns expressed nursing staff. Tolerating diet. White count 6.2. Persistent cough. Patient was returned home with 's assistance. 06/10-patient requiring 10 L oxygen. Nurse concerned this morning. Stat x-ray of x-ray ordered. Patient denies increasing effort of breathing however desaturates on minimal exertion requiring 15 L. Alert oriented and able to talk in full sentences. Completed Tamiflu 06/11 Mild headache earlier on a CPAP now gone. Patient is now on nasal cannula. No new complaints. Productive cough but improving, shortness of breath but again slowly improving. No other complaints. On 4 L nasal cannula now. Review of Systems: denies fever/chills/nausea/vomiting/chest or abdominal pain/diarrhea. Otherwise see above. - Constitutional Vitals: Vital Signs Temp Pulse Resp BP Pulse Ox 96.8 F L 72 20 112/71 96 06/11/18 04:01 06/11/18 05:45 06/11/18 05:45 06/11/18 05:01 06/11/18 05:45 Period Temp Pulse Resp BP Sys/Martins Pulse Ox Last 24 Hr 96.8 F-100.3 F 65-95 17-36 104-124/59-85 91-98 Intake and Output 06/10/18 06/11/18 06/11/18 21:59 05:59 13:59 Intake Total 350 / 720 Output Total 151 / 201 Balance -151 / 519 350 / 519 Intake & Output: Intake & Output 06/10/18 06/11/18 06/11/18 21:59 05:59 13:59 Intake Total 350 / 720 Output Total 151 / 201 Balance -151 / 519 350 / 519 Intake: IV 250 / 500 Vancomycin 1,000 mg In Sodium 250 / 500 Chloride 0.9% 250 ml @ 250 mls/ hr IV Q12H [facility] Rx#:[id number] Oral 100 / 220 Output: Void Amount 150 / 200 # of times incontinent of urine Other: Meal Dinner Percent of Meal Consumed 90 Feeding Ability Independent Urine Color Dark Yellow Urine Odor Strong Stool Size Small Stool Color Brown Stool Consistency Soft # Voids 1 Exam: General: Alert, Awake, No acute Distress Eyes/N/T: EOMI, Head/Neck: neck supple, CV: RRR, No murmurs, Pulm: b/l lower lung fine rales, no wheezing Abd: soft, nontender, +BS x4 Ext: no clubbing/cyanosis, trace b/l LE edema Neuro: Alert, no focal deficits, moves all extremities, Skin: warm/dry Medical - PN: Obj Da - Labs CBC & Chem 7: 06/11/18 04:01 06/11/18 04:01 Labs: Abnormal Lab Results 06/11/18 06/11/18 06/10/18 04:01 04:01 06:27 Hgb 11.0 L Hct 33.5 L Gran % Lymph % (Auto) 13.9 L Lymph # (Auto) 0.8 L Seg Neutrophils % Potassium 3.2 L 3.2 L Glucose 114 H Phosphorus GGT 43 H AST 40 H 60 H ALT 48 H 56 H Lactate Dehydrogenase 287 H 358 H Albumin 2.7 L Globulin 3.9 H 4.2 H Albumin/Globulin Ratio 0.7 L 0.8 L 06/10/18 06/09/18 06/09/18 06:27 05:41 05:41 Hgb 11.8 L Hct 35.9 L Gran % 81.4 H Lymph % (Auto) 10.2 L Lymph # (Auto) 0.6 L Seg Neutrophils % 79 H Potassium Glucose Phosphorus 2.3 L GGT 43 H AST 77 H ALT 58 H Lactate Dehydrogenase 430 H Albumin 2.8 L Globulin 4.4 H Albumin/Globulin Ratio 0.6 L Meds: Medications Acetaminophen (Tylenol) 650 mg PO Q4-6HP PRN PRN Reason: PAIN/FEVER > 101 Last Admin: 06/10/18 20:22 Dose: 650 mg Documented by: Albuterol/Ipratropium (Duoneb) 3 ml NEB Q4HRT PRN PRN Reason: Bronchospasm Albuterol/Ipratropium (Duoneb) 3 ml NEB Q4HRT [facility] Last Admin: 06/11/18 03:53 Dose: 3 ml Documented by: Benzonatate (Tessalon) 200 mg PO TIDP PRN PRN Reason: Cough Bisacodyl (Dulcolax) 10 mg ID Q2-3DAYS PRN PRN Reason: Constipation Docusate Sodium (Colace) 100 mg PO BID [facility] Last Admin: 06/10/18 20:47 Dose: Not Given Documented by: Enoxaparin Sodium (Lovenox) 40 mg SQ DAILY [facility] Famotidine (Pepcid) 20 mg PO BID [facility] Last Admin: 06/10/18 20:22 Dose: 20 mg Documented by: Furosemide (Lasix) 20 mg PO BIDD [facility] Last Admin: 06/10/18 17:46 Dose: 20 mg Documented by: Hydroxyzine HCl (Atarax) 50 mg PO HSP PRN PRN Reason: Insomnia Last Admin: 06/10/18 20:21 Dose: 50 mg Documented by: Levofloxacin (Levaquin) 750 mg in 150 mls @ 100 mls/hr IV Q24H [facility] Vancomycin HCl 1,000 mg/ (Sodium Chloride) 250 mls @ 250 mls/hr IV Q12H [facility] Last Infusion: 06/11/18 05:52 Dose: Infused Documented by: Lactobacillus Rhamnosus (Culturelle) 1 cap PO BID [facility] Last Admin: 06/10/18 20:24 Dose: 1 cap Documented by: Loperamide HCl (Imodium) 2 mg PO PRN PRN PRN Reason: Diarrhea Magnesium Hydroxide (Milk Of Magnesia) 30 ml PO DAILYP PRN PRN Reason: Constipation Naproxen (Naprosyn) 500 mg PO BIDP PRN PRN Reason: pain or fever Ondansetron HCl (Zofran) 4 mg IV Q4HP PRN PRN Reason: Nausea And Vomiting Prochlorperazine (Compazine) 12.5 mg ID Q12HP PRN PRN Reason: Nausea And Vomiting Sodium Biphosphate/Sodium Phosphate (Fleets Adult) 1 dose ID Q3-4DAYS PRN PRN Reason: Constipation Sodium Chloride (Saline Flush) 10 ml IV Q8 [facility] Last Admin: 06/11/18 05:52 Dose: 10 ml Documented by: Vancomycin HCl (Vancomycin Per Pharmacy) 1 order IV [facility] [place] Medical - PN: A/P - Time Spent With Patient Total time spent is greater than 50% in coordination of care (as documented) at patient's floor/unit and/or counseling patient: - Narrative A/P Narrative: A: *Multifocal Pneumonia (INFLUENZA A): with ALI -strep UR neg, Legionella UR neg, SC neg *Acute hypoxic respiratory failure: 2/2 above -on 4L NC from 10L high-flow *Sepsis: improved -afebrile *Recent Sinus infection *Diarrhea, antibiotic induced: improved, c.diff neg *Volume depletion w/Hypotension on Admit: resolved, started diurese on 06/05 *Hyponatremia: resolved *hypokalemia: monitor and replete prn *Leukopenia: 2/2 above, resolved *?LAURENT P: -Tamiflu finished -empiric abx levaquin, vanco added -Pulmonology following: -O2 supp (cont weaning) -nebs/RT, IS/Acapella -echo pending -lasix -iodum prn -f/u electrolytes and replete prn -ambulate -ppx: lovenox Medical - PN: Qual - VTE Deep Vein Thrombosis/Pulmonary Embolism Present on Admission: No
[2018-06-11] MEDS: ENOXAPARIN 40 MG/0.4 ML SYRINGE SQ SCH (08:46)
[2018-06-11] MEDS: LEVOFLOXACIN 750 MG/150 ML BAG IV SCH (08:46)
[2018-06-11] MEDS: FAMOTIDINE 20 MG TABLET PO SCH ×2 (08:47→20:33)
[2018-06-11] MEDS: DOCUSATE SODIUM 100 MG CAPSULE PO SCH ×2 (08:47→20:33)
[2018-06-11] MEDS: FUROSEMIDE 20 MG TABLET PO SCH ×2 (08:47→15:54)
[2018-06-11] MEDS: LACTOBACILLUS 1 CAPSULE PO SCH ×2 (09:07→20:32)
[2018-06-11] MEDS: VANCOMYCIN 1,500 MG in 0.9 % SODIUM CHLORIDE 500 ML IV SCH ×2 (11:43→22:06)
[2018-06-11] MEDS: VANCOMYCIN 1,000 MG in 0.9 % SODIUM CHLORIDE 250 ML IV SCH (19:28)
[2018-06-11] MEDS: BENZONATATE 100 MG CAPSULE PO PRN (20:40)
[2018-06-12 06:41] LABS: Blood Urea Nitrogen 7 mg/dl (8-23)
--- NOTE | 2018-06-12 07:07 | XRay Report ---
CLINICAL INFORMATION: Influenza PNA, ?ARDS COMPARISON: 06/05/2018 and 06/10/2018 FINDINGS: Mild cardiomegaly is unchanged. Mediastinum and pulmonary vessels are unremarkable. Diffuse bilateral infiltrates show modest improvement. Predominant involvement within the left lung periphery. Small left pleural effusion has also improved IMPRESSION: Diffuse bilateral infiltrates, predominantly in the periphery of the left lung, have improved since prior x-ray. Small left pleural effusion also improving Interpreted and Authenticated by: Andreas Graham 06/12/18
--- NOTE | 2018-06-12 07:14 | Internal Med Progress Note ---
Medical - PN: Subj Patient information: Note initiated : 06/12/18 at 7:08 am Service Date, if different from initiated Date: [] Patient: Radha Eric 62 y/o F admitted on 06/03/18 for diarrhea. Chief Complaint: [] Interval history: Ms. Eric is a 62 year old F Who developed signs and symptoms of a sinus infection over she went in to [place] care on Monday and received Augmentin read since taking Augmentin she is developed diarrhea but has shown some improvement in her sinus infection symptoms. She is doing relatively well until yesterday when she started to notice fever, becoming more tired and fatigued, and developing shortness of breath. She also complained of poor appetite. In the ER she is evaluated found to have a temperature of 101.5 and noted to be markedly short of breath requiring oxygen. First obtain a chest x-ray and then a CT chest for further delineation which showed multifocal pneumonia. She has continued diarrhea, C. difficile study in the ER was negative. She does have hyponatremia as well. She was requiring 7 L of oxygen in the ED. Lactic acid was within normal limits. Urinalysis with hyaline casts and ketones. She states her cough is just from some phlegm that is draining down from her sinuses. Patient denies chest pain, but does admit to shortness of breath. She received several liters of normal saline in the ED. 06/04 Cough and shortness of breath slowly improving. Tired. No other new complaints. diarrhea slowing down. 06/05 Increasing oxygen needs last night. Patient sleeping at the time and no respiratory distress. Had fever last night but patient does not feel feverish. Received 40 of Lasix with decent urine output and put on high flow nasal cannula. Cough improving. Dyspnea similar to yesterday she does not feel particularly short of breath, at least while in bed 1/2 Slept a few hours last night. Oxygenation supplementation decreased quite a bit. She is down to 2 L on nasal cannula satting mid 90s and just lowered to 1 L. Plan to get her up moving more today ambulatory with assistance continue weaning down oxygen. 1/3 Slept well last night. No real complaints other than being quite fatigued. Shortness of breath improving, states she felt really tired after transition from bed to chair but did not complain of increased shortness of breath. Productive cough feels like she is getting phlegm from deeper in the chest out. 06/08 Slept okay. Feels her cough is loosening up and I will cough more phlegm out. States her shortness of breath is improving as well better than yesterday. No other pains or complaints. She is able to ambulate more without becoming exhausted. 06/09- patient doing well. No overnight events. Clinically improving. Clinical shortness of breath. Currently on 4 L oxygen. Tachypneic improving. Afebrile. No concerns expressed nursing staff. Tolerating diet. White count 6.2. Persistent cough. Patient was returned home with 's assistance. 06/10-patient requiring 10 L oxygen. Nurse concerned this morning. Stat x-ray of x-ray ordered. Patient denies increasing effort of breathing however desaturates on minimal exertion requiring 15 L. Alert oriented and able to talk in full sentences. Completed Tamiflu 06/11 Mild headache earlier on a CPAP now gone. Patient is now on nasal cannula. No new complaints. Productive cough but improving, shortness of breath but again slowly improving. No other complaints. On 4 L nasal cannula now. 06/12 Had a hard time sleeping because of the IV making noise. But otherwise no overnight events. She feels her shortness of breath comes and goes and is similar to yesterday but but is comfortable at rest. Walked down the [place] with physical therapy today but did stop and rest. Review of Systems: denies fever/chills/nausea/vomiting/chest or abdominal pain/diarrhea. Otherwise see above. - Constitutional Vitals: Vital Signs Temp Pulse Resp BP Pulse Ox 99.0 F 73 20 144/83 94 06/12/18 04:01 06/12/18 06:18 06/11/18 21:01 06/12/18 06:01 06/12/18 06:18 Period Temp Pulse Resp BP Sys/Martins Pulse Ox Last 24 Hr 98 F-99.7 F 71-102 16-20 119-150/69-96 89-100 Intake and Output 06/11/18 06/12/18 06/12/18 21:59 05:59 13:59 Intake Total 720 / 1490 650 / 650 Balance 720 / 1490 650 / 650 Weight 90.446 kg Intake & Output: Intake & Output 06/11/18 06/12/1819 21:59 05:59 13:59 Intake Total 720 / 1490 650 / 650 Balance 720 / 1490 650 / 650 Weight 90.446 kg Intake: IV 650 / 650 Vancomycin 1,500 mg In Sodium 500 / 500 Chloride 0.9% 500 ml @ 333.3 mls/hr IV Q12H [facility] Rx#: [id number] Oral 720 / 990 Other: Meal Dinner Percent of Meal Consumed 100% Exam: General: Alert, Awake, No acute Distress Eyes/N/T: EOMI, Head/Neck: neck supple, CV: RRR, No murmurs, Pulm: b/l lower lung mild rales, no wheezing Abd: soft, nontender, +BS x4 Ext: no clubbing/cyanosis, trace b/l LE edema Neuro: Alert, no focal deficits, moves all extremities Skin: warm/dry Medical - PN: Obj Da - Labs CBC & Chem 7: 06/11/18 04:01 06/12/18 04:00 Labs: Abnormal Lab Results 06/12/18 06/11/18 06/11/18 04:00 04:01 04:01 Hgb 11.0 L Hct 33.5 L Gran % Lymph % (Auto) 13.9 L Lymph # (Auto) 0.8 L Seg Neutrophils % Potassium 3.2 L BUN 7 L Glucose Calcium 8.5 L Phosphorus GGT AST 40 H ALT 48 H Lactate Dehydrogenase 287 H Albumin 2.7 L Globulin 3.9 H Albumin/Globulin Ratio 0.7 L 06/10/18 06/10/18 06/09/18 06:27 06:27 05:41 Hgb Hct Gran % Lymph % (Auto) Lymph # (Auto) Seg Neutrophils % 79 H Potassium 3.2 L BUN Glucose 114 H Calcium Phosphorus 2.3 L GGT 43 H 43 H AST 60 H 77 H ALT 56 H 58 H Lactate Dehydrogenase 358 H 430 H Albumin 2.8 L Globulin 4.2 H 4.4 H Albumin/Globulin Ratio 0.8 L 0.6 L 06/09/18 05:41 Hgb 11.8 L Hct 35.9 L Gran % 81.4 H Lymph % (Auto) 10.2 L Lymph # (Auto) 0.6 L Seg Neutrophils % Potassium BUN Glucose Calcium Phosphorus GGT AST ALT Lactate Dehydrogenase Albumin Globulin Albumin/Globulin Ratio Meds: Medications Acetaminophen (Tylenol) 650 mg PO Q4-6HP PRN PRN Reason: PAIN/FEVER > 101 Last Admin: 06/10/18 20:22 Dose: 650 mg Documented by: Albuterol/Ipratropium (Duoneb) 3 ml NEB Q4HRT PRN PRN Reason: Bronchospasm Benzonatate (Tessalon) 200 mg PO TIDP PRN PRN Reason: Cough Last Admin: 06/11/18 20:40 Dose: 200 mg Documented by: Bisacodyl (Dulcolax) 10 mg DC Q2-3DAYS PRN PRN Reason: Constipation Docusate Sodium (Colace) 100 mg PO BID [facility] Last Admin: 06/11/18 20:33 Dose: 100 mg Documented by: Enoxaparin Sodium (Lovenox) 40 mg SQ DAILY [facility] Last Admin: 06/11/18 08:46 Dose: 40 mg Documented by: Famotidine (Pepcid) 20 mg PO BID [facility] Last Admin: 06/11/18 20:33 Dose: 20 mg Documented by: Furosemide (Lasix) 20 mg PO BIDD [facility] Last Admin: 06/11/18 15:54 Dose: 20 mg Documented by: Hydroxyzine HCl (Atarax) 50 mg PO HSP PRN PRN Reason: Insomnia Last Admin: 06/10/18 20:21 Dose: 50 mg Documented by: Levofloxacin (Levaquin) 750 mg in 150 mls @ 100 mls/hr IV Q24H [facility] Last Infusion: 06/12/18 06:34 Dose: Infused Documented by: Vancomycin HCl 1,500 mg/ (Sodium Chloride) 500 mls @ 333.3 mls/hr IV Q12H [facility] Last Infusion: 06/12/18 06:34 Dose: Infused Documented by: Lactobacillus Rhamnosus (Culturelle) 1 cap PO BID [facility] Last Admin: 06/11/18 20:32 Dose: 1 cap Documented by: Loperamide HCl (Imodium) 2 mg PO PRN PRN PRN Reason: Diarrhea Magnesium Hydroxide (Milk Of Magnesia) 30 ml PO DAILYP PRN PRN Reason: Constipation Naproxen (Naprosyn) 500 mg PO BIDP PRN PRN Reason: pain or fever Ondansetron HCl (Zofran) 4 mg IV Q4HP PRN PRN Reason: Nausea And Vomiting Prochlorperazine (Compazine) 12.5 mg DC Q12HP PRN PRN Reason: Nausea And Vomiting Sodium Biphosphate/Sodium Phosphate (Fleets Adult) 1 dose DC Q3-4DAYS PRN PRN Reason: Constipation Sodium Chloride (Saline Flush) 10 ml IV Q8 [facility] Last Admin: 06/11/18 22:06 Dose: 10 ml Documented by: Vancomycin HCl (Vancomycin Per Pharmacy) 1 order IV UD [facility] Medical - PN: A/P - Time Spent With Patient Total time spent is greater than 50% in coordination of care (as documented) at patient's floor/unit and/or counseling patient: - Narrative A/P Narrative: A: *Multifocal Pneumonia (INFLUENZA A): w/ARDS -strep UR neg, Legionella UR neg, SC neg -echo unremarkable -slowly gradual improving *Acute hypoxic respiratory failure: 2/2 above -on 2L NC from 10L high-flow *Sepsis: improved -afebrile *Recent Sinus infection *Diarrhea, antibiotic induced: improved, c.diff neg *Volume depletion w/Hypotension on Admit: resolved, started diurese on 06/05 *Hyponatremia: resolved *hypokalemia: monitor and replete prn *Leukopenia: 2/2 above, resolved P: -Tamiflu finished -empiric abx levaquin, vanco added per pulm. stop soon given duration -Pulmonology following -O2 supp (cont weaning) -nebs/RT, IS/Acapella -iodum prn -f/u electrolytes and replete prn -ambulate -ppx: lovenox Medical - PN: Qual - VTE Deep Vein Thrombosis/Pulmonary Embolism Present on Admission: No
[2018-06-12] MEDS: 0.9 % SODIUM CHLORIDE 10 ML SYRINGE IV SCH ×3 (08:36→20:59)
[2018-06-12] MEDS: DOCUSATE SODIUM 100 MG CAPSULE PO SCH ×2 (08:36→20:59)
[2018-06-12] MEDS: FAMOTIDINE 20 MG TABLET PO SCH ×2 (08:36→20:59)
[2018-06-12] MEDS: ENOXAPARIN 40 MG/0.4 ML SYRINGE SQ SCH (08:36)
[2018-06-12] MEDS: LACTOBACILLUS 1 CAPSULE PO SCH ×2 (08:36→21:04)
[2018-06-12] MEDS: FUROSEMIDE 20 MG TABLET PO SCH ×2 (08:36→17:12)
[2018-06-12] MEDS: LEVOFLOXACIN 750 MG/150 ML BAG IV SCH (08:37)
[2018-06-12] MEDS: VANCOMYCIN 1,500 MG in 0.9 % SODIUM CHLORIDE 500 ML IV SCH ×2 (11:27→20:58)
[2018-06-12] MEDS: BENZONATATE 100 MG CAPSULE PO PRN (17:13)
[2018-06-12] MEDS: ONDANSETRON 4 MG/2 ML VIAL IV PRN (18:47)
[2018-06-12] MEDS: IPRATROPIUM/ALBUTEROL 3 ML AMPUL.NEB NEB PRN (18:50)
[2018-06-13] MEDS: BENZONATATE 100 MG CAPSULE PO PRN ×2 (01:31→18:39)
[2018-06-13] MEDS: ONDANSETRON 4 MG/2 ML VIAL IV PRN ×2 (05:15→18:39)
[2018-06-13] MEDS: IPRATROPIUM/ALBUTEROL 3 ML AMPUL.NEB NEB PRN (05:15)
[2018-06-13 05:37] LABS: Basophils # (Auto) 0 K/mcL (0.0-0.3); Basophils % (Auto) 0.3 % (0.0-2.0); Eosinophils # (Auto) 0 K/mcL (0.0-0.7); Eosinophils % (Auto) 0.1 % (0.0-7.0); Granulocytes % (Auto) 80.3 % (38.0-78.0); Lymphocytes # (Auto) 0.6 K/mcL (1.5-4.8); Lymphocytes % (Auto) 7.7 % (15.5-49.0); Mean Cell Volume 81.8 fL (80.0-100.0); Mean Corpuscular HGB Conc 33.2 g/dL (31.0-36.0); Monocytes % (Auto) 11.6 % (1.0-12.0); Platelet Count 407 K/mcL (140-440); RBC 3.98 M/mcL (4.00-5.20); Red Cell Distribution Width 13.5 % (11.5-14.5)
[2018-06-13] MEDS: 0.9 % SODIUM CHLORIDE 10 ML SYRINGE IV SCH ×3 (05:51→23:10)
[2018-06-13 06:00] LABS: ALT/SGPT 29 U/l (0-40); Albumin 2.9 gm/dL (3.2-5.2); Albumin/Globulin Ratio 0.7 (1.0-2.3); Alkaline Phosphatase 62 U/L (39-117); Bilirubin,Direct < 0.2 mg/dL (0.0-0.3); Blood Urea Nitrogen 13 mg/dl (8-23); Gamma Glutamyl Transpeptidase 30 U/L (5-36); Uric Acid 5.7 mg/dL (2.5-8.0)
[2018-06-13] MEDS ORDERED: 0.9 % SODIUM CHLORIDE 1,000 ML IV SCH (07:45)
--- NOTE | 2018-06-13 08:40 | XRay Report ---
CLINICAL INFORMATION: shortness of breath COMPARISON: 06/12/2018 FINDINGS: Moderate cardiomegaly is unchanged. Mediastinum and pulmonary vasculature are unremarkable. Moderate patchy infiltrates predominantly the periphery of both lungs show slight worsening from yesterday. Small bilateral pleural effusions and progressed IMPRESSION: Slight worsening in moderate diffuse bilateral infiltrates or edema since yesterday's study Interpreted and Authenticated by: Andreas Graham 06/13/18
[2018-06-13] MEDS: ENOXAPARIN 40 MG/0.4 ML SYRINGE SQ SCH (09:23)
[2018-06-13] MEDS: FAMOTIDINE 20 MG TABLET PO SCH ×2 (09:23→19:26)
[2018-06-13] MEDS: LACTOBACILLUS 1 CAPSULE PO SCH ×2 (09:31→19:26)
[2018-06-13] MEDS: DOCUSATE SODIUM 100 MG CAPSULE PO SCH ×2 (09:31→19:26)
--- NOTE | 2018-06-13 12:29 | Internal Med Progress Note ---
Medical - PN: Subj Patient information: Note initiated : 06/13/18 at 12:26 pm Service Date, if different from initiated Date: [] Patient: Radha Eric 62 y/o F admitted on 06/03/18 for diarrhea. Chief Complaint: [] Interval history: Ms. Eric is a 62 year old F Who developed signs and symptoms of a sinus infection over she went in to [facility] on Monday and received Augmentin read since taking Augmentin she is developed diarrhea but has shown some improvement in her sinus infection symptoms. She is doing relatively well until yesterday when she started to notice fever, becoming more tired and fatigued, and developing shortness of breath. She also complained of poor appetite. In the ER she is evaluated found to have a temperature of 101.5 and noted to be markedly short of breath requiring oxygen. First obtain a chest x-ray and then a CT chest for further delineation which showed multifocal pneumonia. She has continued diarrhea, C. difficile study in the ER was negative. She does have hyponatremia as well. She was requiring 7 L of oxygen in the ED. Lactic acid was within normal limits. Urinalysis with hyaline casts and ketones. She states her cough is just from some phlegm that is draining down from her sinuses. Patient denies chest pain, but does admit to shortness of breath. She received several liters of normal saline in the ED. 06/04 Cough and shortness of breath slowly improving. Tired. No other new complaints. diarrhea slowing down. 06/05 Increasing oxygen needs last night. Patient sleeping at the time and no respiratory distress. Had fever last night but patient does not feel feverish. Received 40 of Lasix with decent urine output and put on high flow nasal cannula. Cough improving. Dyspnea similar to yesterday she does not feel particularly short of breath, at least while in bed 1/2 Slept a few hours last night. Oxygenation supplementation decreased quite a bit. She is down to 2 L on nasal cannula satting mid 90s and just lowered to 1 L. Plan to get her up moving more today ambulatory with assistance continue weaning down oxygen. 1/3 Slept well last night. No real complaints other than being quite fatigued. Shortness of breath improving, states she felt really tired after transition from bed to chair but did not complain of increased shortness of breath. Productive cough feels like she is getting phlegm from deeper in the chest out. 06/08 Slept okay. Feels her cough is loosening up and I will cough more phlegm out. States her shortness of breath is improving as well better than yesterday. No other pains or complaints. She is able to ambulate more without becoming exhausted. 06/09- patient doing well. No overnight events. Clinically improving. Clinical shortness of breath. Currently on 4 L oxygen. Tachypneic improving. Afebrile. No concerns expressed nursing staff. Tolerating diet. White count 6.2. Persistent cough. Patient was returned home with 's assistance. 06/10-patient requiring 10 L oxygen. Nurse concerned this morning. Stat x-ray of x-ray ordered. Patient denies increasing effort of breathing however desaturates on minimal exertion requiring 15 L. Alert oriented and able to talk in full sentences. Completed Tamiflu 06/11 Mild headache earlier on a CPAP now gone. Patient is now on nasal cannula. No new complaints. Productive cough but improving, shortness of breath but again slowly improving. No other complaints. On 4 L nasal cannula now. 06/12 Had a hard time sleeping because of the IV making noise. But otherwise no overnight events. She feels her shortness of breath comes and goes and is similar to yesterday but but is comfortable at rest. Walked down the [place] with physical therapy today but did stop and rest. 06/13 Patient seen and examined no acute overnight events patient notes he did not sleep well last night she was short of breath and had increased oxygen requi rement and was disappointed because of that. Patient creatinine bumped up to 1.5 today. Vancomycin level is elevated, patient had as needed naproxen ordered but it seems to not get any. We will give her 1 L of saline, discontinue naproxen adjust the dose of vancomycin as well as levofloxacin. Monitor the patient. Chest x-ray done today shows slight worsening of bilateral infiltrates Pertinent ROS: Denies headache, dizziness Denies chest pain, palpitations Cough and shortness of breath present, slight worsening compared to yesterday Denies abdominal pain, nausea or vomiting. - Constitutional Vitals: Vital Signs Temp Pulse Resp BP Pulse Ox 100.5 F H 88 23 H 131/82 92 06/13/18 12:00 06/13/18 12:02 06/13/18 12:01 06/13/18 12:01 06/13/18 12:02 Period Temp Pulse Resp BP Sys/Martins Pulse Ox Last 24 Hr 99.1 F-100.5 F 77-109 18-24 100-146/62-103 89-100 Intake and Output 06/12/18 06/13/18 06/13/18 21:59 05:59 13:59 Intake Total 540 / 2380 540 / 2380 360 / 360 Output Total 200 / 1853 701 / 1853 50 / 50 Balance 340 / 527 -161 / 527 310 / 310 Weight 196 lb 11.2 oz Intake & Output: Intake & Output 06/12/18 06/13/18 06/13/18 21:59 05:59 13:59 Intake Total 540 / 2380 540 / 2380 360 / 360 Output Total 200 / 1853 701 / 1853 50 / 50 Balance 340 / 527 -161 / 527 310 / 310 Weight 196 lb 11.2 oz Intake: IV 500 / 1500 Vancomycin 1,500 mg In Sodium 500 / 1500 Chloride 0.9% 500 ml @ 333.3 mls/hr IV Q12H [facility] Rx#: [id number] Oral 540 / 580 40 / 580 360 / 360 Output: Void Amount 200 / 1550 400 / 1550 50 / 50 # of times incontinent of urine 1 / 3 Emesis 300 / 300 Other: Meal Dinner Breakfast Percent of Meal Consumed 25% 100% Feeding Ability Assist with Tray Set Up Assist with Tray Set Up Urine Color Straw Urine Odor Normal Stool Size Copious Stool Color Brown Yellow Stool Consistency Soft # Emeses 4 Exam: Constitutional; Afebrile, cooperative, alert, not in distress. Eyes- No icterus, , No periorbital swelling Ears- Ext ear normal, hearing normal to conversation. Neck- Midline trachea, supple Respiratory system: Air Entry equal on both sides, bibasilar crackles mild worse with inspiration no wheezing noted patient able to speak full sentences CVS- Rate rhythm regular, S1,S2 heard, no gallop, no rub. Abdomen- Soft nontender abdomen, no organomegaly, no tenderness, no guarding or rigidity, ONCOLOGY RN- AOOx3, moving all extremities, no gross focal deficit noted. Medical - PN: Obj Da - Labs CBC & Chem 7: 06/13/18 04:00 06/13/18 04:00 Labs: Abnormal Lab Results 06/13/18 06/13/18 06/13/18 09:11 04:00 04:00 RBC 3.98 L Hgb 10.8 L Hct 32.6 L Gran % 80.3 H Lymph % (Auto) 7.7 L Lymph # (Auto) 0.6 L [place] # (Auto) 1.0 H Potassium BUN Creatinine 1.5 H Calcium Phosphorus 4.6 H AST ALT Lactate Dehydrogenase 301 H Albumin 2.9 L Globulin 3.9 H Albumin/Globulin Ratio 0.7 L Vancomycin Trough 26.8 H* 06/12/18 06/11/18 06/11/18 04:00 04:01 04:01 RBC Hgb 11.0 L Hct 33.5 L Gran % Lymph % (Auto) 13.9 L Lymph # (Auto) 0.8 L [place] # (Auto) Potassium 3.2 L BUN 7 L Creatinine Calcium 8.5 L Phosphorus AST 40 H ALT 48 H Lactate Dehydrogenase 287 H Albumin 2.7 L Globulin 3.9 H Albumin/Globulin Ratio 0.7 L Vancomycin Trough Meds: Medications Acetaminophen (Tylenol) 650 mg PO Q4-6HP PRN PRN Reason: PAIN/FEVER > 101 Last Admin: 06/10/18 20:22 Dose: 650 mg Documented by: Albuterol/Ipratropium (Duoneb) 3 ml NEB Q4HRT PRN PRN Reason: Bronchospasm Last Admin: 06/13/18 05:15 Dose: 3 ml Documented by: Benzonatate (Tessalon) 200 mg PO TIDP PRN PRN Reason: Cough Last Admin: 06/13/18 01:31 Dose: 200 mg Documented by: Bisacodyl (Dulcolax) 10 mg NE Q2-3DAYS PRN PRN Reason: Constipation Docusate Sodium (Colace) 100 mg PO BID [facility] Last Admin: 06/13/18 09:31 Dose: Not Given Documented by: Enoxaparin Sodium (Lovenox) 40 mg SQ DAILY [facility] Last Admin: 06/13/18 09:23 Dose: 40 mg Documented by: Famotidine (Pepcid) 20 mg PO BID [facility] Last Admin: 06/13/18 09:23 Dose: 20 mg Documented by: Hydroxyzine HCl (Atarax) 50 mg PO HSP PRN PRN Reason: Insomnia Last Admin: 06/10/18 20:21 Dose: 50 mg Documented by: Sodium Chloride (Sodium Chloride 0.9%) 1,000 mls @ 75 mls/hr IV .[id number] [facility] Stop: 06/13/18 21:04 Last Admin: 06/13/18 09:17 Dose: 75 mls/hr Documented by: Levofloxacin (Levaquin) 750 mg in 150 mls @ 100 mls/hr IV Q48H [facility] Lactobacillus Rhamnosus (Culturelle) 1 cap PO BID [facility] Last Admin: 06/13/18 09:31 Dose: 1 cap Documented by: Loperamide HCl (Imodium) 2 mg PO PRN PRN PRN Reason: Diarrhea Magnesium Hydroxide (Milk Of Magnesia) 30 ml PO DAILYP PRN PRN Reason: Constipation Ondansetron HCl (Zofran) 4 mg IV Q4HP PRN PRN Reason: Nausea And Vomiting Last Admin: 06/13/18 05:15 Dose: 4 mg Documented by: Prochlorperazine (Compazine) 12.5 mg NE Q12HP PRN PRN Reason: Nausea And Vomiting Sodium Biphosphate/Sodium Phosphate (Fleets Adult) 1 dose NE Q3-4DAYS PRN PRN Reason: Constipation Sodium Chloride (Saline Flush) 10 ml IV Q8 [facility] Last Admin: 06/13/18 05:51 Dose: 10 ml Documented by: Vancomycin HCl (Vancomycin Per Pharmacy) 1 order IV [facility] [place] Medical - PN: A/P - Time Spent With Patient Total time spent is greater than 50% in coordination of care (as documented) at patient's floor/unit and/or counseling patient: - Narrative A/P Narrative: A: *Multifocal Pneumonia (INFLUENZA A): w/ARDS -strep UR neg, Legionella UR neg, SC neg -echo unremarkable -slowly gradual improving *Acute hypoxic respiratory failure: 2/2 above -on 2L NC from 10L high-flow *Sepsis: improved -afebrile *Acute Kidney Injury -likely ATN from vanco *Recent Sinus infection *Diarrhea, antibiotic induced: improved, c.diff neg *Volume depletion w/Hypotension on Admit: resolved, started diurese on 06/05 *Hyponatremia: resolved *hypokalemia: monitor and replete prn *Leukopenia: 2/2 above, resolved P: -s/p Tamiflu finished -empiric abx levaquin, vanco added per pulm. stop soon given duration -slight worsening today on x ray, monitor. -IV fluids and monitor renal function, hold off on nephrotoxic meds, adjust meds dose likely ATN from vanco use -Pulmonology following -O2 supp (cont weaning) -nebs/RT, IS/Acapella -iodum prn -f/u electrolytes and replete prn -ambulate -ppx: lovenox Medical - PN: Qual - VTE Deep Vein Thrombosis/Pulmonary Embolism Present on Admission: No
[2018-06-13] MEDS: guaiFENesin/DEXTROMETHORPHAN ORAL SOL PO PRN (19:25)
[2018-06-14] MEDS: guaiFENesin/DEXTROMETHORPHAN ORAL SOL PO PRN ×4 (05:18→21:03)
[2018-06-14] MEDS: ACETAMINOPHEN 325 MG TABLET PO PRN (05:20)
[2018-06-14] MEDS: 0.9 % SODIUM CHLORIDE 10 ML SYRINGE IV SCH ×4 (05:21→21:03)
[2018-06-14 07:06] LABS: Basophils # (Auto) 0 K/mcL (0.0-0.3); Basophils % (Auto) 0.3 % (0.0-2.0); Eosinophils # (Auto) 0 K/mcL (0.0-0.7); Eosinophils % (Auto) 0.1 % (0.0-7.0); Lymphocytes # (Auto) 0.9 K/mcL (1.5-4.8); Lymphocytes % (Auto) 10.7 % (15.5-49.0); Mean Cell Volume 82.2 fL (80.0-100.0); Mean Corpuscular HGB Conc 33.1 g/dL (31.0-36.0); Monocytes # (Auto) 0.9 K/mcL (0.1-0.9); Monocytes % (Auto) 10.9 % (1.0-12.0); Platelet Count 360 K/mcL (140-440); RBC 3.63 M/mcL (4.00-5.20)
[2018-06-14 07:42] LABS: ALT/SGPT 23 U/l (0-40); Albumin 2.8 gm/dL (3.2-5.2); Albumin/Globulin Ratio 0.7 (1.0-2.3); Alkaline Phosphatase 60 U/L (39-117); Bilirubin,Direct < 0.2 mg/dL (0.0-0.3); Blood Urea Nitrogen 14 mg/dl (8-23); Gamma Glutamyl Transpeptidase 29 U/L (5-36); Uric Acid 6.2 mg/dL (2.5-8.0)
[2018-06-14] MEDS ORDERED: LEVOFLOXACIN 750 MG/150 ML BAG IV SCH (09:00)
[2018-06-14] MEDS: FAMOTIDINE 20 MG TABLET PO SCH (10:05)
[2018-06-14] MEDS: LACTOBACILLUS 1 CAPSULE PO SCH ×2 (10:05→21:02)
[2018-06-14] MEDS: DOCUSATE SODIUM 100 MG CAPSULE PO SCH ×2 (10:05→21:02)
[2018-06-14] MEDS: ENOXAPARIN 40 MG/0.4 ML SYRINGE SQ SCH (10:05)
[2018-06-14 10:29] LABS: Legionella Cult NOT ISOLATED; Specimen Source SPUTUM; Status FINAL (NOTISOLATED)
[2018-06-14] MEDS ORDERED: VANCOMYCIN 1,500 MG in 0.9 % SODIUM CHLORIDE 500 ML IV ONE (12:15)
[2018-06-14] MEDS ORDERED: VANCOMYCIN 1,250 MG in 0.9 % SODIUM CHLORIDE 500 ML IV ONE (12:30)
--- NOTE | 2018-06-14 13:58 | Internal Med Progress Note ---
Medical - PN: Subj Patient information: Note initiated : 06/14/18 at 1:56 pm Service Date, if different from initiated Date: [] Patient: Radha Eric 62 y/o F admitted on 06/03/18 for diarrhea. Chief Complaint: [] Interval history: Ms. Eric is a 62 year old F Who developed signs and symptoms of a sinus infection over she went in to [facility] on Monday and received Augmentin read since taking Augmentin s he is developed diarrhea but has shown some improvement in her sinus infection symptoms. She is doing relatively well until yesterday when she started to notice fever, becoming more tired and fatigued, and developing shortness of breath. She also complained of poor appetite. In the ER she is evaluated found to have a temperature of 101.5 and noted to be markedly short of breath requiring oxygen. First obtain a chest x-ray and then a CT chest for further delineation which showed multifocal pneumonia. She has continued diarrhea, C. difficile study in the ER was negative. She does have hyponatremia as well. She was requiring 7 L of oxygen in the ED. Lactic acid was within normal limits. Urinalysis with hyaline casts and ketones. She states her cough is just from some phlegm that is draining down from her sinuses. Patient denies chest pain, but does admit to shortness of breath. She received several liters of normal saline in the ED. 06/04 Cough and shortness of breath slowly improving. Tired. No other new complaints. diarrhea slowing down. 06/05 Increasing oxygen needs last night. Patient sleeping at the time and no respiratory distress. Had fever last night but patient does not feel feverish. Received 40 of Lasix with decent urine output and put on high flow nasal cannula. Cough improving. Dyspnea similar to yesterday she does not feel particularly short of breath, at least while in bed 1/2 Slept a few hours last night. Oxygenation supplementation decreased quite a bit. She is down to 2 L on nasal cannula satting mid 90s and just lowered to 1 L. Plan to get her up moving more today ambulatory with assistance continue weaning down oxygen. 1/3 Slept well last night. No real complaints other than being quite fatigued. Shortness of breath improving, states she felt really tired after transition from bed to chair but did not complain of increased shortness of breath. Productive cough feels like she is getting phlegm from deeper in the chest out. 06/08 Slept okay. Feels her cough is loosening up and I will cough more phlegm out. States her shortness of breath is improving as well better than yesterday. No other pains or complaints. She is able to ambulate more without becoming exhausted. 06/09- patient doing well. No overnight events. Clinically improving. Clinical shortness of breath. Currently on 4 L oxygen. Tachypneic improving. Afebrile. No concerns expressed nursing staff. Tolerating diet. White count 6.2. Persistent cough. Patient was returned home with 's assistance. 06/10-patient requiring 10 L oxygen. Nurse concerned this morning. Stat x-ray of x-ray ordered. Patient denies increasing effort of breathing however desaturates on minimal exertion requiring 15 L. Alert oriented and able to talk in full sentences. Completed Tamiflu 06/11 Mild headache earlier on a CPAP now gone. Patient is now on nasal cannula. No new complaints. Productive cough but improving, shortness of breath but again slowly improving. No other complaints. On 4 L nasal cannula now. 06/12 Had a hard time sleeping because of the IV making noise. But otherwise no overnight events. She feels her shortness of breath comes and goes and is similar to yesterday but but is comfortable at rest. Walked down the [place] with physical therapy today but did stop and rest. 06/13 Patient seen and examined no acute overnight events patient notes he did not sleep well last night she was short of breath and had increased oxygen requir ement and was disappointed because of that. Patient creatinine bumped up to 1.5 today. Vancomycin level is elevated, patient had as needed naproxen ordered but it seems to not get any. We will give her 1 L of saline, discontinue naproxen adjust the dose of vancomycin as well as levofloxacin. Monitor the patient. Chest x-ray done today shows slight worsening of bilateral infiltrates 06/14 Patient seen and examined, no acute overnight events. Still on oxygen but improved oxygen requirement since yesterday she feels much better. She was febrile yesterday but fever curve is trending down patient remains hemodynamically stable Continue to monitor consider adding Zosyn if the patient's fever curve worsens Transferred to telemetry status Creatinine slightly up at 1.7 was 1.5 yesterday Pertinent ROS: Denies headache, dizziness Denies chest pain, palpitations Improving cough and shortness of breath Denies abdominal pain, nausea or vomiting. - Constitutional Vitals: Vital Signs Temp Pulse Resp BP Pulse Ox 98.2 F 77 16 139/82 93 06/14/18 08:02 06/14/18 11:01 06/14/18 08:00 06/14/18 11:01 06/14/18 11:01 Period Temp Pulse Resp BP Sys/Martins Pulse Ox Last 24 Hr 98.2 F-100.3 F 68-93 16-20 92-142/57-88 86-98 Intake and Output 06/13/18 06/14/18 06/14/18 21:59 05:59 13:59 Intake Total 1240 / 1600 630 / 630 Output Total 75 / 125 Balance 1165 / 1475 630 / 630 Weight 195 lb 11.2 oz Intake & Output: Intake & Output 06/13/18 06/14/18 06/14/18 21:59 05:59 13:59 Intake Total 1240 / 1600 630 / 630 Output Total 75 / 125 Balance 1165 / 1475 630 / 630 Weight 195 lb 11.2 oz Intake: IV 1000 / 1000 150 / 150 Oral 240 / 600 480 / 480 Output: Void Amount 75 / 125 Other: Meal Dinner Nourishment/Supplement Percent of Meal Consumed 100% 100% Feeding Ability Assist with Tray Set Up Independent Urine Appearance Clear Clear Urine Color Straw Straw Urine Odor Normal Normal Exam: Constitutional; Afebrile, cooperative, alert, not in distress. Eyes- No icterus, , No periorbital swelling Ears- Ext ear normal, hearing normal to conversation. Neck- Midline trachea, supple Respiratory system: Air Entry equal on both sides, no wheezes present bilaterally there are inspiratory crackles especially at bases CVS- Rate rhythm regular, S1,S2 heard, no gallop, no rub. Abdomen- Soft nontender abdomen, no organomegaly, no tenderness, no guarding or rigidity, RN HYPERBARIC- AOOx3, moving all extremities, no gross focal deficit noted. Medical - PN: Obj Da - Labs CBC & Chem 7: 06/14/18 03:45 06/14/18 03:45 Labs: Abnormal Lab Results 06/14/18 06/14/18 06/13/18 03:45 03:45 09:11 RBC 3.63 L Hgb 9.9 L Hct 29.8 L Gran % Lymph % (Auto) 10.7 L Lymph # (Auto) 0.9 L [place] # (Auto) BUN Creatinine 1.7 H Calcium Phosphorus Lactate Dehydrogenase 335 H Albumin 2.8 L Globulin 4.0 H Albumin/Globulin Ratio 0.7 L Vancomycin Trough 26.8 H* 06/13/18 06/13/18 06/12/18 04:00 04:00 04:00 RBC 3.98 L Hgb 10.8 L Hct 32.6 L Gran % 80.3 H Lymph % (Auto) 7.7 L Lymph # (Auto) 0.6 L [place] # (Auto) 1.0 H BUN 7 L Creatinine 1.5 H Calcium 8.5 L Phosphorus 4.6 H Lactate Dehydrogenase 301 H Albumin 2.9 L Globulin 3.9 H Albumin/Globulin Ratio 0.7 L Vancomycin Trough Meds: Medications Acetaminophen (Tylenol) 650 mg PO Q4-6HP PRN PRN Reason: PAIN/FEVER > 101 Last Admin: 06/14/18 05:20 Dose: 650 mg Documented by: Albuterol/Ipratropium (Duoneb) 3 ml NEB Q4HRT PRN PRN Reason: Bronchospasm Last Admin: 06/13/18 05:15 Dose: 3 ml Documented by: Benzonatate (Tessalon) 200 mg PO TIDP PRN PRN Reason: Cough Last Admin: 06/13/18 18:39 Dose: 200 mg Documented by: Bisacodyl (Dulcolax) 10 mg NV Q2-3DAYS PRN PRN Reason: Constipation Docusate Sodium (Colace) 100 mg PO BID [facility] Last Admin: 06/14/18 10:05 Dose: 100 mg Documented by: Enoxaparin Sodium (Lovenox) 30 mg SQ DAILY [facility] Famotidine (Pepcid) 20 mg PO BID [facility] Last Admin: 06/14/18 10:05 Dose: 20 mg Documented by: Guaifenesin (Robitussin Dm) 10 ml PO Q4HP PRN PRN Reason: Cough Last Admin: 06/14/18 10:08 Dose: 10 ml Documented by: Hydroxyzine HCl (Atarax) 50 mg PO HSP PRN PRN Reason: Insomnia Last Admin: 06/10/18 20:21 Dose: 50 mg Documented by: Levofloxacin (Levaquin) 750 mg in 150 mls @ 100 mls/hr IV Q48H [facility] Last Infusion: 06/14/18 11:40 Dose: Infused Documented by: Vancomycin HCl 1,250 mg/ (Sodium Chloride) 500 mls @ 333.3 mls/hr IV ONCE ONE Stop: 06/14/18 14:00 Last Admin: 06/14/18 13:42 Dose: 333 mls/hr Documented by: Lactobacillus Rhamnosus (Culturelle) 1 cap PO BID [facility] Last Admin: 06/14/18 10:05 Dose: 1 cap Documented by: Loperamide HCl (Imodium) 2 mg PO PRN PRN PRN Reason: Diarrhea Magnesium Hydroxide (Milk Of Magnesia) 30 ml PO DAILYP PRN PRN Reason: Constipation Ondansetron HCl (Zofran) 4 mg IV Q4HP PRN PRN Reason: Nausea And Vomiting Last Admin: 06/13/18 18:39 Dose: 4 mg Documented by: Prochlorperazine (Compazine) 12.5 mg NV Q12HP PRN PRN Reason: Nausea And Vomiting Sodium Biphosphate/Sodium Phosphate (Fleets Adult) 1 dose NV Q3-4DAYS PRN PRN Reason: Constipation Sodium Chloride (Saline Flush) 10 ml IV Q8 [facility] Last Admin: 06/14/18 13:42 Dose: 10 ml Documented by: Vancomycin HCl (Vancomycin Per Pharmacy) 1 order IV [facility] [place] Medical - PN: A/P - Time Spent With Patient Total time spent is greater than 50% in coordination of care (as documented) at patient's floor/unit and/or counseling patient: - Narrative A/P Narrative: A: *Multifocal Pneumonia (INFLUENZA A): w/ARDS -strep UR neg, Legionella UR neg, SC neg -echo unremarkable -slowly gradual improving -s/p tamiflu -on vanco and levoflox as per pulmonary *Acute hypoxic respiratory failure: 2/2 above -on 2L NC from 10L high-flow *Sepsis: improved -afebrile *Acute Kidney Injury -likely ATN from vanco -monitor renal function. *Recent Sinus infection *Diarrhea, antibiotic induced: improved, c.diff neg *Volume depletion w/Hypotension on Admit: resolved, started diurese on 06/05 *Hyponatremia: resolved *hypokalemia: monitor and replete prn *Leukopenia: 2/2 above, resolved P: -clinically better -IV fluids and monitor renal function, hold off on nephrotoxic meds, adjust meds dose likely ATN from vanco use -O2 supp (cont weaning) -nebs/RT, IS/Acapella -iodum prn -f/u electrolytes and replete prn -ambulate -ppx: [facility] Medical - PN: Qual - VTE Deep Vein Thrombosis/Pulmonary Embolism Present on Admission: No
[2018-06-14] MEDS ORDERED: PROCHLORPERAZINE 25 MG SUPP.RECT PR PRN (14:04)
[2018-06-14] MEDS ORDERED: BISACODYL 10 MG SUPP.RECT PR PRN (14:04)
[2018-06-14] MEDS ORDERED: LOPERAMIDE 2 MG CAPSULE PO PRN (14:04)
[2018-06-14] MEDS ORDERED: ACETAMINOPHEN 325 MG TABLET PO PRN (14:04)
[2018-06-14] MEDS ORDERED: ONDANSETRON 4 MG/2 ML VIAL IV PRN (14:04)
[2018-06-14] MEDS ORDERED: MAGNESIUM HYDROXIDE 30 ML ORAL.SUSP PO PRN (14:04)
[2018-06-14] MEDS ORDERED: IPRATROPIUM/ALBUTEROL 3 ML AMPUL.NEB NEB PRN (14:04)
[2018-06-14] MEDS ORDERED: VANCOMYCIN PER PHARMACY IV SCH (14:04)
[2018-06-14] MEDS ORDERED: FLEETS ADULT ENEMA PR PRN (14:04)
[2018-06-14] MEDS ORDERED: hydrOXYzine 25 MG TABLET PO PRN (21:00)
[2018-06-14] MEDS ORDERED: FAMOTIDINE 20 MG TABLET PO SCH (21:00)
[2018-06-15] MEDS: 0.9 % SODIUM CHLORIDE 10 ML SYRINGE IV SCH ×4 (05:45→21:27)
[2018-06-15 05:59] LABS: Basophils # (Auto) 0 K/mcL (0.0-0.3); Basophils % (Auto) 0.3 % (0.0-2.0); Eosinophils # (Auto) 0 K/mcL (0.0-0.7); Eosinophils % (Auto) 0.5 % (0.0-7.0); Granulocytes % (Auto) 81.4 % (38.0-78.0); Lymphocytes # (Auto) 0.7 K/mcL (1.5-4.8); Lymphocytes % (Auto) 8.7 % (15.5-49.0); Mean Cell Volume 81.9 fL (80.0-100.0); Mean Corpuscular HGB Conc 33.4 g/dL (31.0-36.0); Monocytes # (Auto) 0.8 K/mcL (0.1-0.9); Monocytes % (Auto) 9.1 % (1.0-12.0); Platelet Count 388 K/mcL (140-440); RBC 3.73 M/mcL (4.00-5.20); Red Cell Distribution Width 13.4 % (11.5-14.5)
[2018-06-15 06:03] LABS: ALT/SGPT 22 U/l (0-40); Albumin 2.8 gm/dL (3.2-5.2); Albumin/Globulin Ratio 0.7 (1.0-2.3); Alkaline Phosphatase 57 U/L (39-117); Bilirubin,Direct < 0.2 mg/dL (0.0-0.3); Blood Urea Nitrogen 18 mg/dl (8-23); Gamma Glutamyl Transpeptidase 25 U/L (5-36); Uric Acid 6.2 mg/dL (2.5-8.0)
[2018-06-15 06:13] LABS: Vancomycin,Random 18.1 ug/mL
[2018-06-15] MEDS: LEVOFLOXACIN 750 MG/150 ML BAG IV SCH (06:49)
[2018-06-15] MEDS: VANCOMYCIN 1,500 MG in 0.9 % SODIUM CHLORIDE 500 ML IV SCH (06:50)
[2018-06-15] MEDS: guaiFENesin/DEXTROMETHORPHAN ORAL SOL PO PRN ×2 (07:15→12:59)
[2018-06-15] MEDS: BENZONATATE 100 MG CAPSULE PO PRN ×3 (07:15→21:26)
[2018-06-15] MEDS ORDERED: FUROSEMIDE 40 MG/4 ML VIAL IV ONE (07:17)
[2018-06-15] MEDS ORDERED: PANTOPRAZOLE 40 MG PACKET PO SCH (07:30)
[2018-06-15] MEDS ORDERED: ENOXAPARIN 30 MG/0.3 ML SYRINGE SQ SCH ×2 (09:00)
[2018-06-15] MEDS: LACTOBACILLUS 1 CAPSULE PO SCH ×2 (09:31→21:26)
[2018-06-15] MEDS: DOCUSATE SODIUM 100 MG CAPSULE PO SCH ×2 (09:31→21:26)
[2018-06-15] MEDS ORDERED: VANCOMYCIN 1,500 MG in 0.9 % SODIUM CHLORIDE 500 ML IV SCH (12:00)
--- NOTE | 2018-06-15 13:30 | Internal Med Progress Note ---
Medical - PN: Subj Patient information: Note initiated : 06/15/18 at 1:27 pm Service Date, if different from initiated Date: [] Patient: Radha Eric 62 y/o F admitted on 06/03/18 for diarrhea. Chief Complaint: [] Interval history: Ms. Eric is a 62 year old F Who developed signs and symptoms of a sinus infection over she went in to [place] care on Monday and received Augmentin read since taking Augmentin s he is developed diarrhea but has shown some improvement in her sinus infection symptoms. She is doing relatively well until yesterday when she started to notice fever, becoming more tired and fatigued, and developing shortness of breath. She also complained of poor appetite. In the ER she is evaluated found to have a temperature of 101.5 and noted to be markedly short of breath requiring oxygen. First obtain a chest x-ray and then a CT chest for further delineation which showed multifocal pneumonia. She has continued diarrhea, C. difficile study in the ER was negative. She does have hyponatremia as well. She was requiring 7 L of oxygen in the ED. Lactic acid was within normal limits. Urinalysis with hyaline casts and ketones. She states her cough is just from some phlegm that is draining down from her sinuses. Patient denies chest pain, but does admit to shortness of breath. She received several liters of normal saline in the ED. 06/04 Cough and shortness of breath slowly improving. Tired. No other new complaints. diarrhea slowing down. 06/05 Increasing oxygen needs last night. Patient sleeping at the time and no respiratory distress. Had fever last night but patient does not feel feverish. Received 40 of Lasix with decent urine output and put on high flow nasal cannula. Cough improving. Dyspnea similar to yesterday she does not feel particularly short of breath, at least while in bed 1/2 Slept a few hours last night. Oxygenation supplementation decreased quite a bit. She is down to 2 L on nasal cannula satting mid 90s and just lowered to 1 L. Plan to get her up moving more today ambulatory with assistance continue weaning down oxygen. 1/3 Slept well last night. No real complaints other than being quite fatigued. Shortness of breath improving, states she felt really tired after transition from bed to chair but did not complain of increased shortness of breath. Productive cough feels like she is getting phlegm from deeper in the chest out. 06/08 Slept okay. Feels her cough is loosening up and I will cough more phlegm out. States her shortness of breath is improving as well better than yesterday. No other pains or complaints. She is able to ambulate more without becoming exhausted. 06/09- patient doing well. No overnight events. Clinically improving. Clinical shortness of breath. Currently on 4 L oxygen. Tachypneic improving. Afebrile. No concerns expressed nursing staff. Tolerating diet. White count 6.2. Persistent cough. Patient was returned home with 's assistance. 06/10-patient requiring 10 L oxygen. Nurse concerned this morning. Stat x-ray of x-ray ordered. Patient denies increasing effort of breathing however desaturates on minimal exertion requiring 15 L. Alert oriented and able to talk in full sentences. Completed Tamiflu 06/11 Mild headache earlier on a CPAP now gone. Patient is now on nasal cannula. No new complaints. Productive cough but improving, shortness of breath but again slowly improving. No other complaints. On 4 L nasal cannula now. 06/12 Had a hard time sleeping because of the IV making noise. But otherwise no overnight events. She feels her shortness of breath comes and goes and is similar to yesterday but but is comfortable at rest. Walked down the [place] with physical therapy today but did stop and rest. 06/13 Patient seen and examined no acute overnight events patient notes he did not sleep well last night she was short of breath and had increased oxygen requir ement and was disappointed because of that. Patient creatinine bumped up to 1.5 today. Vancomycin level is elevated, patient had as needed naproxen ordered but it seems to not get any. We will give her 1 L of saline, discontinue naproxen adjust the dose of vancomycin as well as levofloxacin. Monitor the patient. Chest x-ray done today shows slight worsening of bilateral infiltrates 06/14 Patient seen and examined, no acute overnight events. Still on oxygen but improved oxygen requirement since yesterday she feels much better. She was febrile yesterday but fever curve is trending down patient remains hemodynamically stable Continue to monitor consider adding Zosyn if the patient's fever curve worsens Transferred to telemetry status Creatinine slightly up at 1.7 was 1.5 yesterday 06/15 Patient seen and examined, no acute overnight events, still on oxygen oxygen needs are stable. Patient is ambulatory no events on telemetry. Has not needed BiPAP for last 3 days Transfer to medical status Creatinine is 1.6 Pertinent ROS: Denies headache, dizziness Denies chest pain, palpitations Cough is still there however improving, shortness of breath improving Denies abdominal pain, nausea or vomiting. - Constitutional Vitals: Vital Signs Temp Pulse Resp BP Pulse Ox 99.5 F H 81 20 117/74 93 06/15/18 11:20 06/14/18 17:04 06/15/18 11:20 06/15/18 11:20 06/15/18 11:20 Period Temp Pulse Resp BP Sys/Martins Pulse Ox Last 24 Hr 99.0 F-99.5 F 81 18-20 117-158/74-94 90-98 Intake and Output 06/14/18 06/15/18 06/15/18 21:59 05:59 13:59 Intake Total 180 / 180 Output Total 125 / 125 Balance 55 / 55 Weight 196 lb 6.4 oz Intake & Output: Intake & Output 06/14/18 06/15/18 06/15/18 21:59 05:59 13:59 Intake Total 180 / 180 Output Total 125 / 125 Balance 55 / 55 Weight 196 lb 6.4 oz Intake: Oral 180 / 180 Output: Void Amount 125 / 125 # of times incontinent of urine 0 / 0 Other: # Voids 1 1 1 Exam: Constitutional; Afebrile, cooperative, alert, not in distress. Eyes- No icterus, , No periorbital swelling Ears- Ext ear normal, hearing normal to conversation. Neck- Midline trachea, supple Respiratory system: Air Entry equal on both sides, bilateral inspiratory crackles at bases CVS- Rate rhythm regular, S1,S2 heard, no gallop, no rub. Abdomen- Soft nontender abdomen, no organomegaly, no tenderness, no guarding or rigidity, JOB [employer]ER- AOOx3, moving all extremities, no gross focal deficit noted. Medical - PN: Obj Da - Labs CBC & Chem 7: 06/15/18 03:55 06/15/18 03:55 Labs: Abnormal Lab Results 06/15/18 06/15/18 06/14/18 03:55 03:55 03:45 RBC 3.73 L Hgb 10.2 L Hct 30.6 L Gran % 81.4 H Lymph % (Auto) 8.7 L Lymph # (Auto) 0.7 L Reynolds # (Auto) Creatinine 1.6 H 1.7 H Phosphorus Lactate Dehydrogenase 275 H 335 H Albumin 2.8 L 2.8 L Globulin 4.0 H 4.0 H Albumin/Globulin Ratio 0.7 L 0.7 L Vancomycin Trough 06/14/18 06/13/18 06/13/18 03:45 09:11 04:00 RBC 3.63 L Hgb 9.9 L Hct 29.8 L Gran % Lymph % (Auto) 10.7 L Lymph # (Auto) 0.9 L Reynolds # (Auto) Creatinine 1.5 H Phosphorus 4.6 H Lactate Dehydrogenase 301 H Albumin 2.9 L Globulin 3.9 H Albumin/Globulin Ratio 0.7 L Vancomycin Trough 26.8 H* 06/13/18 04:00 RBC 3.98 L Hgb 10.8 L Hct 32.6 L Gran % 80.3 H Lymph % (Auto) 7.7 L Lymph # (Auto) 0.6 L Reynolds # (Auto) 1.0 H Creatinine Phosphorus Lactate Dehydrogenase Albumin Globulin Albumin/Globulin Ratio Vancomycin Trough Meds: Medications Acetaminophen (Tylenol) 650 mg PO Q4-6HP PRN PRN Reason: PAIN/FEVER > 101 Albuterol/Ipratropium (Duoneb) 3 ml NEB Q4HRT PRN PRN Reason: Bronchospasm Benzonatate (Tessalon) 200 mg PO TIDP PRN PRN Reason: Cough Last Admin: 06/15/18 12:59 Dose: 200 mg Documented by: Bisacodyl (Dulcolax) 10 mg NE Q2-3DAYS PRN PRN Reason: Constipation Docusate Sodium (Colace) 100 mg PO BID [facility] Last Admin: 06/15/18 09:31 Dose: 100 mg Documented by: Enoxaparin Sodium (Lovenox) 30 mg SQ DAILY [facility] Last Admin: 06/15/18 09:31 Dose: 30 mg Documented by: Guaifenesin (Robitussin Dm) 10 ml PO Q4HP PRN PRN Reason: Cough Last Admin: 06/15/18 12:59 Dose: 10 ml Documented by: Hydroxyzine HCl (Atarax) 50 mg PO HSP PRN PRN Reason: Insomnia Last Admin: 06/14/18 21:02 Dose: 50 mg Documented by: Levofloxacin (Levaquin) 750 mg in 150 mls @ 100 mls/hr IV Q48H [facility] Vancomycin HCl 1,500 mg/ (Sodium Chloride) 500 mls @ 333.3 mls/hr IV Q24H [facility] Last Admin: 06/15/18 12:58 Dose: 333.3 mls/hr Documented by: Lactobacillus Rhamnosus (Culturelle) 1 cap PO BID [facility] Last Admin: 06/15/18 09:31 Dose: 1 cap Documented by: Loperamide HCl (Imodium) 2 mg PO PRN PRN PRN Reason: Diarrhea Magnesium Hydroxide (Milk Of Magnesia) 30 ml PO DAILYP PRN PRN Reason: Constipation Ondansetron HCl (Zofran) 4 mg IV Q4HP PRN PRN Reason: Nausea And Vomiting Last Admin: 06/15/18 07:16 Dose: 4 mg Documented by: Pantoprazole Sodium (Protonix) 40 mg PO QAMAC [facility] Last Admin: 06/15/18 08:00 Dose: 40 mg Documented by: Prochlorperazine (Compazine) 12.5 mg NE Q12HP PRN PRN Reason: Nausea And Vomiting Sodium Biphosphate/Sodium Phosphate (Fleets Adult) 1 dose NE Q3-4DAYS PRN PRN Reason: Constipation Sodium Chloride (Saline Flush) 10 ml IV Q8 [facility] Last Admin: 06/15/18 12:59 Dose: 10 ml Documented by: Vancomycin HCl (Vancomycin Per Pharmacy) 1 order IV UD [facility] Medical - PN: A/P - Time Spent With Patient Total time spent is greater than 50% in coordination of care (as documented) at patient's floor/unit and/or counseling patient: - Narrative A/P Narrative: A: Multifocal Pneumonia (INFLUENZA A): w/ARDS -strep UR neg, Legionella UR neg, SC neg -echo unremarkable -slowly gradual improving -s/p tamiflu -on vanco and levoflox as per pulmonary Acute hypoxic respiratory failure: 2/2 above -on 2-3 L NC from 10L high-flow, wean off oxygen as tolerated Sepsis: improved -afebrile Acute Kidney Injury -likely ATN from vanco -monitor renal function. -Creatinine is 1.6 Diarrhea, antibiotic induced: improved, c.diff neg Volume depletion w/Hypotension on Admit: -Resolved Hyponatremia: - resolved hypokalemia: - monitor and replete prn Leukopenia: 2/2 above, resolved Patient stable to be transferred to medical status -ambulate -ppx: lovenox Medical - PN: Qual - VTE Deep Vein Thrombosis/Pulmonary Embolism Present on Admission: No
[2018-06-15] MEDS ORDERED: LOPERAMIDE 2 MG CAPSULE PO PRN (13:43)
[2018-06-15] MEDS ORDERED: BISACODYL 10 MG SUPP.RECT PR PRN (13:43)
[2018-06-15] MEDS ORDERED: PROCHLORPERAZINE 25 MG SUPP.RECT PR PRN (13:43)
[2018-06-15] MEDS ORDERED: IPRATROPIUM/ALBUTEROL 3 ML AMPUL.NEB NEB PRN (13:43)
[2018-06-15] MEDS ORDERED: ACETAMINOPHEN 325 MG TABLET PO PRN (13:43)
[2018-06-15] MEDS ORDERED: hydrOXYzine 25 MG TABLET PO PRN (13:43)
[2018-06-15] MEDS ORDERED: MAGNESIUM HYDROXIDE 30 ML ORAL.SUSP PO PRN (13:43)
[2018-06-15] MEDS ORDERED: FLEETS ADULT ENEMA PR PRN (13:43)
[2018-06-15] MEDS ORDERED: VANCOMYCIN PER PHARMACY IV SCH (13:43)
[2018-06-16] MEDS: BENZONATATE 100 MG CAPSULE PO PRN ×3 (04:20→17:02)
[2018-06-16] MEDS: 0.9 % SODIUM CHLORIDE 10 ML SYRINGE IV SCH ×4 (05:31→21:10)
[2018-06-16 05:33] LABS: Basophils # (Auto) 0 K/mcL (0.0-0.3); Basophils % (Auto) 0.5 % (0.0-2.0); Eosinophils # (Auto) 0 K/mcL (0.0-0.7); Eosinophils % (Auto) 0.2 % (0.0-7.0); Lymphocytes # (Auto) 0.9 K/mcL (1.5-4.8); Lymphocytes % (Auto) 10.7 % (15.5-49.0); Mean Cell Volume 81.8 fL (80.0-100.0); Mean Corpuscular HGB Conc 33.4 g/dL (31.0-36.0); Monocytes # (Auto) 0.8 K/mcL (0.1-0.9); Monocytes % (Auto) 9.6 % (1.0-12.0); Platelet Count 411 K/mcL (140-440); RBC 3.85 M/mcL (4.00-5.20); Red Cell Distribution Width 13.9 % (11.5-14.5)
[2018-06-16 05:45] LABS: ALT/SGPT 21 U/l (0-40); Albumin 3.1 gm/dL (3.2-5.2); Albumin/Globulin Ratio 0.8 (1.0-2.3); Alkaline Phosphatase 58 U/L (39-117); Bilirubin,Direct < 0.2 mg/dL (0.0-0.3); Blood Urea Nitrogen 20 mg/dl (8-23); Gamma Glutamyl Transpeptidase 26 U/L (5-36); Uric Acid 6.4 mg/dL (2.5-8.0)
[2018-06-16] MEDS: PANTOPRAZOLE 40 MG PACKET PO SCH (08:15)
[2018-06-16] MEDS: guaiFENesin/DEXTROMETHORPHAN ORAL SOL PO PRN ×2 (08:15→17:02)
[2018-06-16] MEDS ORDERED: LEVOFLOXACIN 750 MG/150 ML BAG IV SCH ×2 (09:00)
[2018-06-16] MEDS: DOCUSATE SODIUM 100 MG CAPSULE PO SCH ×2 (09:13→19:26)
[2018-06-16] MEDS: LACTOBACILLUS 1 CAPSULE PO SCH ×2 (09:13→19:26)
[2018-06-16] MEDS: ENOXAPARIN 30 MG/0.3 ML SYRINGE SQ SCH (09:13)
[2018-06-16] MEDS ORDERED: VANCOMYCIN 1,500 MG in 0.9 % SODIUM CHLORIDE 500 ML IV SCH (10:00)
--- NOTE | 2018-06-16 10:04 | XRay Report ---
CLINICAL INFORMATION: ards COMPARISON: 06/13/2018 FINDINGS: Mild cardiomegaly is unchanged. Mediastinum and pulmonary vessels are normal. There is improved aeration in the diffuse bilateral reticulonodular nfiltrates. Small right pleural effusion noted. IMPRESSION: Moderate improvement in diffuse bilateral infiltrates with mild reticulonodular residual infiltrate peripherally. Finding compatible with resolving ARDS Interpreted and Authenticated by: Andreas Graham 06/16/18
[2018-06-16] MEDS ORDERED: FUROSEMIDE 40 MG/4 ML VIAL IV ONE (10:10)
[2018-06-16] MEDS: ONDANSETRON 4 MG/2 ML VIAL IV PRN ×2 (11:11→17:02)
--- NOTE | 2018-06-16 15:14 | Internal Med Progress Note ---
Medical - PN: Subj Patient information: Note initiated : 06/16/18 at 3:12 pm Service Date, if different from initiated Date: [] Patient: Radha Eric 62 y/o F admitted on 06/03/18 for diarrhea. Chief Complaint: [] Interval history: Ms. Eric is a 62 year old F Who developed signs and symptoms of a sinus infection over she went in to [place] care on Monday and received Augmentin read since taking Augmentin s he is developed diarrhea but has shown some improvement in her sinus infection symptoms. She is doing relatively well until yesterday when she started to notice fever, becoming more tired and fatigued, and developing shortness of breath. She also complained of poor appetite. In the ER she is evaluated found to have a temperature of 101.5 and noted to be markedly short of breath requiring oxygen. First obtain a chest x-ray and then a CT chest for further delineation which showed multifocal pneumonia. She has continued diarrhea, C. difficile study in the ER was negative. She does have hyponatremia as well. She was requiring 7 L of oxygen in the ED. Lactic acid was within normal limits. Urinalysis with hyaline casts and ketones. She states her cough is just from some phlegm that is draining down from her sinuses. Patient denies chest pain, but does admit to shortness of breath. She received several liters of normal saline in the ED. 06/04 Cough and shortness of breath slowly improving. Tired. No other new complaints. diarrhea slowing down. 06/05 Increasing oxygen needs last night. Patient sleeping at the time and no respiratory distress. Had fever last night but patient does not feel feverish. Received 40 of Lasix with decent urine output and put on high flow nasal cannula. Cough improving. Dyspnea similar to yesterday she does not feel particularly short of breath, at least while in bed 1/2 Slept a few hours last night. Oxygenation supplementation decreased quite a bit. She is down to 2 L on nasal cannula satting mid 90s and just lowered to 1 L. Plan to get her up moving more today ambulatory with assistance continue weaning down oxygen. 1/3 Slept well last night. No real complaints other than being quite fatigued. Shortness of breath improving, states she felt really tired after transition from bed to chair but did not complain of increased shortness of breath. Productive cough feels like she is getting phlegm from deeper in the chest out. 06/08 Slept okay. Feels her cough is loosening up and I will cough more phlegm out. States her shortness of breath is improving as well better than yesterday. No other pains or complaints. She is able to ambulate more without becoming exhausted. 06/09- patient doing well. No overnight events. Clinically improving. Clinical shortness of breath. Currently on 4 L oxygen. Tachypneic improving. Afebrile. No concerns expressed nursing staff. Tolerating diet. White count 6.2. Persistent cough. Patient was returned home with 's assistance. 06/10-patient requiring 10 L oxygen. Nurse concerned this morning. Stat x-ray of x-ray ordered. Patient denies increasing effort of breathing however desaturates on minimal exertion requiring 15 L. Alert oriented and able to talk in full sentences. Completed Tamiflu 06/11 Mild headache earlier on a CPAP now gone. Patient is now on nasal cannula. No new complaints. Productive cough but improving, shortness of breath but again slowly improving. No other complaints. On 4 L nasal cannula now. 06/12 Had a hard time sleeping because of the IV making noise. But otherwise no overnight events. She feels her shortness of breath comes and goes and is similar to yesterday but but is comfortable at rest. Walked down the [place] with physical therapy today but did stop and rest. 06/13 Patient seen and examined no acute overnight events patient notes he did not sleep well last night she was short of breath and had increased oxygen requir ement and was disappointed because of that. Patient creatinine bumped up to 1.5 today. Vancomycin level is elevated, patient had as needed naproxen ordered but it seems to not get any. We will give her 1 L of saline, discontinue naproxen adjust the dose of vancomycin as well as levofloxacin. Monitor the patient. Chest x-ray done today shows slight worsening of bilateral infiltrates 06/14 Patient seen and examined, no acute overnight events. Still on oxygen but improved oxygen requirement since yesterday she feels much better. She was febrile yesterday but fever curve is trending down patient remains hemodynamically stable Continue to monitor consider adding Zosyn if the patient's fever curve worsens Transferred to telemetry status Creatinine slightly up at 1.7 was 1.5 yesterday 06/15 Patient seen and examined, no acute overnight events, still on oxygen oxygen needs are stable. Patient is ambulatory no events on telemetry. Has not needed BiPAP for last 3 days Transfer to [facility] status Creatinine is 1.6 06/16 Seen and examined, clinically improving off oxygen this morning however oxygen saturation dropped as low as 8 88, resolved spontaneously. She was able to ambulate well this morning. Cough is getting better patient feels better. Chest x-ray shows improvement Pertinent ROS: Denies headache, dizziness Denies chest pain, palpitations Improving cough and shortness of breath Denies abdominal pain, nausea or vomiting. - Constitutional Vitals: Vital Signs Temp Pulse Resp BP Pulse Ox 97.9 F 83 24 H 137/86 92 06/16/18 12:00 06/16/18 04:00 06/16/18 12:00 06/16/18 12:00 06/16/18 12:00 Period Temp Pulse Resp BP Sys/Maritns Pulse Ox Last 24 Hr 97.9 F-99.2 F 74-83 16-24 137-169/75-97 91-98 Intake and Output 06/16/18 06/16/18 06/16/18 05:59 13:59 21:59 Intake Total 160 / 880 870 / 870 Output Total 800 / 2525 1153 / 1153 Balance -640 / -1645 -283 / -283 Weight 196 lb 12.8 oz Patient Weight 06/17/18 05:59 Weight 196 lb 12.8 oz Intake & Output: Intake & Output 06/16/18 06/16/18 06/16/18 05:59 13:59 21:59 Intake Total 160 / 880 870 / 870 Output Total 800 / 2525 1153 / 1153 Balance -640 / -1645 -283 / -283 Weight 196 lb 12.8 oz Intake: IV 650 / 650 Vancomycin 1,500 mg In Sodium 500 / 500 Chloride 0.9% 500 ml @ 333.3 mls/hr IV Q24H [facility] Rx#: [id number] Oral 160 / 880 220 / 220 Output: Void Amount 800 / 2525 1150 / 1150 # of times incontinent of urine 3 / 3 Other: Meal Nourishment/Supplement Breakfast Percent of Meal Consumed 100% 100% Feeding Ability Independent Independent Urine Color Bright Yellow Stool Consistency Soft # Voids 2 # Bowel Movements 0 Exam: Constitutional; Afebrile, cooperative, alert, not in distress. Respiratory system: Air Entry equal on both sides, butch crackles, no wheezing. CVS- Rate rhythm regular, S1,S2 heard, no gallop, no rub. Abdomen- Soft nontender abdomen, no organomegaly, no tenderness, no guarding or rigidity, INFORMATION TECHNOLOGY COORDINATOR- AOOx3, moving all extremities, no gross focal deficit noted. Medical - PN: Obj Da - Labs CBC & Chem 7: 06/16/18 03:50 06/16/18 03:50 Labs: Abnormal Lab Results 06/16/18 06/16/18 06/15/18 03:50 03:50 03:55 RBC 3.85 L Hgb 10.5 L Hct 31.5 L Gran % 79.0 H Lymph % (Auto) 10.7 L Lymph # (Auto) 0.9 L Creatinine 1.6 H 1.6 H Lactate Dehydrogenase 269 H 275 H Albumin 3.1 L 2.8 L Globulin 4.0 H 4.0 H Albumin/Globulin Ratio 0.8 L 0.7 L 06/15/18 06/14/18 06/14/18 03:55 03:45 03:45 RBC 3.73 L 3.63 L Hgb 10.2 L 9.9 L Hct 30.6 L 29.8 L Gran % 81.4 H Lymph % (Auto) 8.7 L 10.7 L Lymph # (Auto) 0.7 L 0.9 L Creatinine 1.7 H Lactate Dehydrogenase 335 H Albumin 2.8 L Globulin 4.0 H Albumin/Globulin Ratio 0.7 L Meds: Medications Acetaminophen (Tylenol) 650 mg PO Q4-6HP PRN PRN Reason: PAIN/FEVER > 101 Last Admin: 06/15/18 16:15 Dose: 650 mg Documented by: Albuterol/Ipratropium (Duoneb) 3 ml NEB Q4HRT PRN PRN Reason: Bronchospasm Benzonatate (Tessalon) 200 mg PO TIDP PRN PRN Reason: Cough Last Admin: 06/16/18 08:15 Dose: 200 mg Documented by: Bisacodyl (Dulcolax) 10 mg [place] Q2-3DAYS PRN PRN Reason: Constipation Docusate Sodium (Colace) 100 mg PO BID [facility] Last Admin: 06/16/18 09:13 Dose: 100 mg Documented by: Enoxaparin Sodium (Lovenox) 30 mg SQ DAILY [facility] Last Admin: 06/16/18 09:13 Dose: 30 mg Documented by: Guaifenesin (Robitussin Dm) 10 ml PO Q4HP PRN PRN Reason: Cough Last Admin: 06/16/18 08:15 Dose: 10 ml Documented by: Hydroxyzine HCl (Atarax) 50 mg PO HSP PRN PRN Reason: Insomnia Levofloxacin (Levaquin) 750 mg in 150 mls @ 100 mls/hr IV Q48H [facility] Last Infusion: 06/16/18 11:10 Dose: Infused Documented by: Vancomycin HCl 1,500 mg/ (Sodium Chloride) 500 mls @ 333.3 mls/hr IV Q24H [facility] Last Infusion: 06/16/18 13:03 Dose: Infused Documented by: Lactobacillus Rhamnosus (Culturelle) 1 cap PO BID [facility] Last Admin: 06/16/18 09:13 Dose: 1 cap Documented by: Loperamide HCl (Imodium) 2 mg PO PRN PRN PRN Reason: Diarrhea Magnesium Hydroxide (Milk Of Magnesia) 30 ml PO DAILYP PRN PRN Reason: Constipation Ondansetron HCl (Zofran) 4 mg IV Q4HP PRN PRN Reason: Nausea And Vomiting Last Admin: 06/16/18 11:11 Dose: 4 mg Documented by: Pantoprazole Sodium (Protonix) 40 mg PO QAMAC [facility] Last Admin: 06/16/18 08:15 Dose: 40 mg Documented by: Prochlorperazine (Compazine) 12.5 mg OK Q12HP PRN PRN Reason: Nausea And Vomiting Sodium Biphosphate/Sodium Phosphate (Fleets Adult) 1 dose OK Q3-4DAYS PRN PRN Reason: Constipation Sodium Chloride (Saline Flush) 10 ml IV Q8 [facility] Last Admin: 06/16/18 05:31 Dose: 10 ml Documented by: Vancomycin HCl (Vancomycin Per Pharmacy) 1 order IV UD [facility] Medical - PN: A/P - Time Spent With Patient Total time spent is greater than 50% in coordination of care (as documented) at patient's floor/unit and/or counseling patient: - Narrative A/P Narrative: A: Multifocal Pneumonia (INFLUENZA A): w/ARDS -strep UR neg, Legionella UR neg, SC neg -echo unremarkable -slowly gradual improving -s/p tamiflu -on vanco and levoflox as per pulmonary Acute hypoxic respiratory failure: 2/2 above -on 0-2 L oxygen now, -repeat does of lasix to see how she responds Sepsis: improved -afebrile Acute Kidney Injury -likely ATN from vanco -monitor renal function. -Creatinine is 1.6 stable Diarrhea, antibiotic induced: improved, c.diff neg Volume depletion w/Hypotension on Admit: -Resolved Hyponatremia: - resolved hypokalemia: - monitor and replete prn Leukopenia: 2/2 above, resolved -ambulate -ppx: lovenox if remains off oxygen, d/c home in AM Medical - PN: Qual - VTE Deep Vein Thrombosis/Pulmonary Embolism Present on Admission: No
[2018-06-17] MEDS: 0.9 % SODIUM CHLORIDE 10 ML SYRINGE IV SCH ×2 (04:07→16:55)
[2018-06-17 05:25] LABS: Basophils # (Auto) 0 K/mcL (0.0-0.3); Basophils % (Auto) 0.5 % (0.0-2.0); Eosinophils # (Auto) 0 K/mcL (0.0-0.7); Eosinophils % (Auto) 0.5 % (0.0-7.0); Granulocytes % (Auto) 78.3 % (38.0-78.0); Lymphocytes # (Auto) 0.9 K/mcL (1.5-4.8); Lymphocytes % (Auto) 10.6 % (15.5-49.0); Mean Cell Volume 81.2 fL (80.0-100.0); Mean Corpuscular HGB Conc 33.3 g/dL (31.0-36.0); Monocytes # (Auto) 0.8 K/mcL (0.1-0.9); Monocytes % (Auto) 10.1 % (1.0-12.0); Platelet Count 441 K/mcL (140-440); RBC 4.18 M/mcL (4.00-5.20); Red Cell Distribution Width 13.3 % (11.5-14.5)
[2018-06-17 05:51] LABS: ALT/SGPT 19 U/l (0-40); Albumin 3.2 gm/dL (3.2-5.2); Albumin/Globulin Ratio 0.7 (1.0-2.3); Alkaline Phosphatase 66 U/L (39-117); Bilirubin,Direct < 0.2 mg/dL (0.0-0.3); Blood Urea Nitrogen 21 mg/dl (8-23); Gamma Glutamyl Transpeptidase 28 U/L (5-36); Uric Acid 6.6 mg/dL (2.5-8.0)
[2018-06-17] MEDS: ENOXAPARIN 30 MG/0.3 ML SYRINGE SQ SCH (08:56)
[2018-06-17] MEDS: PANTOPRAZOLE 40 MG PACKET PO SCH (08:57)
[2018-06-17] MEDS: DOCUSATE SODIUM 100 MG CAPSULE PO SCH (08:57)
[2018-06-17] MEDS: LACTOBACILLUS 1 CAPSULE PO SCH (08:59)
[2018-06-17] MEDS ORDERED: MINERAL OIL 1 DOSE ENEMA PR ONE (11:09)
--- NOTE | 2018-06-17 12:46 | Discharge Summary ---
Medical - DS: Prov Patient information: Note initiated : 06/17/18 at 12:38 pm Service Date, if different from initiated Date: [] Patient: Radha Eric 62 y/o F admitted on 06/03/18 for diarrhea. Chief Complaint: [] Date of admission: 06/03/18 09:00 Discharge date: 06/17/18 Primary care physician: Reena Forbes Consults: 06/10/18 09:51 Consult to Physician [CONS] Routine Comment: Consulting Provider: Balwinder Kuhn Reason For Exam: Physician to Consult 06/03/18 Consult to Physician [CONS] Stat Comment: Consulting Provider: Demetrius Howard Reason For Exam: Physician to Consult Discharging clinician: Narciso Noyola Medical - DS: Meds - Discharge Medications Prescriptions: Levofloxacin [Levaquin] 750 mg PO Q48H #2 tablet Active and Home Medications: Home Medications gamma e complex 1 dose PO QDAY 12/29/15 [History Confirmed 06/14/18 Last Taken 06/02/18] multivitamin tablet 1 tab-cap PO QDAY 12/29/15 [History Confirmed 06/09/18 Last Taken 06/02/18] probiotic 1 dose PO BID 12/29/15 [History Confirmed 06/14/18 Last Taken 06/02/18] epinephrine 0.3 mg/0.3 mL injection, auto-injector 0.3 mg IM ONCE 01/14/16 [History Confirmed 06/09/18 Last Taken 05/05/16] omeprazole 40 mg capsule,delayed release 40 mg PO QDAY 30 Days #30 cap 01/14/16 [Rx Confirmed 06/09/18 Last Taken Unknown] calcium carbonate 500 mg calcium (1,250 mg) tablet 500 mg PO BID #60 tab 03/23/16 [Rx Confirmed 06/09/18 Last Taken 06/02/18] cholecalciferol (vitamin D3) 2,000 unit capsule 2,000 unit PO QDAY #30 cap 03/23/16 [Rx Confirmed 06/09/18 Last Taken 06/02/18] Medical - DS: Hosp Hospital course: Ms. Eric is a 62 year old F Who developed signs and symptoms of a sinus infection over she went in to [facility] on Monday and received Augmentin read since taking Augmentin she is developed diarrhea but has shown some improvement in her sinus infection symptoms. She is doing relatively well until yesterday when she started to notice fever, becoming more tired and fatigued, and developing shortness of breath. She also complained of poor appetite. In the ER she is evaluated found to have a temperature of 101.5 and noted to be markedly short of breath requiring oxygen. First obtain a chest x-ray and then a CT chest for further delineation which showed multifocal pneumonia. She has continued diarrhea, C. difficile study in the ER was negative. She does have hyponatremia as well. She was requiring 7 L of oxygen in the ED. Lactic acid was within normal limits. Urinalysis with hyaline casts and ketones. She states her cough is just from some phlegm that is draining down from her sinuses. Patient denies chest pain, but does admit to shortness of breath. She received several liters of normal saline in the ED. 06/04 Cough and shortness of breath slowly improving. Tired. No other new complaints. diarrhea slowing down. 06/05 Increasing oxygen needs last night. Patient sleeping at the time and no respiratory distress. Had fever last night but patient does not feel feverish. Received 40 of Lasix with decent urine output and put on high flow nasal cannula. Cough improving. Dyspnea similar to yesterday she does not feel particularly short of breath, at least while in bed 1/2 Slept a few hours last night. Oxygenation supplementation decreased quite a bit. She is down to 2 L on nasal cannula satting mid 90s and just lowered to 1 L. Plan to get her up moving more today ambulatory with assistance continue weaning down oxygen. 06/07 Slept well last night. No real complaints other than being quite fatigued. Shortness of breath improving, states she felt really tired after transition from bed to chair but did not complain of increased shortness of breath. Productive cough feels like she is getting phlegm from deeper in the chest out. 06/08 Slept okay. Feels her cough is loosening up and I will cough more phlegm out. States her shortness of breath is improving as well better than yesterday. No other pains or complaints. She is able to ambulate more without becoming exhausted. 06/09- patient doing well. No overnight events. Clinically improving. Clinical shortness of breath. Currently on 4 L oxygen. Tachypneic improving. Afebrile. No concerns expressed nursing staff. Tolerating diet. White count 6.2. Pe rsistent cough. Patient was returned home with 's assistance. 06/10-patient requiring 10 L oxygen. Nurse concerned this morning. Stat x-ray of x-ray ordered. Patient denies increasing effort of breathing however desaturates on minimal exertion requiring 15 L. Alert oriented and able to talk in full sentences. Completed Tamiflu 06/11 Mild headache earlier on a CPAP now gone. Patient is now on nasal cannula. No new complaints. Productive cough but improving, shortness of breath but again slowly improving. No other complaints. On 4 L nasal cannula now. 06/12 Had a hard time sleeping because of the IV making noise. But otherwise no overnight events. She feels her shortness of breath comes and goes and is similar to yesterday but but is comfortable at rest. Walked down the lilly with physical therapy today but did stop and rest. 06/13 Patient seen and examined no acute overnight events patient notes he did not sleep well last night she was short of breath and had increased oxygen requirement and was disappointed because of that. Patient creatinine bumped up to 1.5 today. Vancomycin level is elevated, patient had as needed naproxen ordered but it seems to not get any. We will give her 1 L of saline, discontinue naproxen adjust the dose of vancomycin as well as levofloxacin. Monitor the patient. Chest x-ray done today shows slight worsening of bilateral infiltrates 06/14 Patient seen and examined, no acute overnight events. Still on oxygen but improved oxygen requirement since yesterday she feels much better. She was febrile yesterday but fever curve is trending down patient remains hemodynamically stable Continue to monitor consider adding Zosyn if the patient's fever curve worsens Transferred to telemetry status Creatinine slightly up at 1.7 was 1.5 yesterday 06/15 Patient seen and examined, no acute overnight events, still on oxygen oxygen needs are stable. Patient is ambulatory no events on telemetry. Has not needed BiPAP for last 3 days Transfer to medical status Creatinine is 1.6 06/16 Seen and examined, clinically improving off oxygen this morning however oxygen saturation dropped as low as 8 88, resolved spontaneously. She was able to ambu late well this morning. Cough is getting better patient feels better. Chest x-ray shows improvement 06/17 Pt seen examined, continues to improve, ambulated off oxygen without any issues, feels much better creat stable at 1.6, stable for d/c home. In Summary A: Multifocal Pneumonia (INFLUENZA A): w/ARDS -treated with tamiflu, pulmonary consulted adn advised antibiotics with vanco and levofloxacin, has recevied 5 days of vanco, will give additional 2 tabs of levofloxacin at discharge Acute hypoxic respiratory failure: 2/2 above on room air at the time of discharge, aggresive pulmonary toilet advised at home, incentive spiormetery, and acapella to be taken home. Acute Kidney Injury -likely ATN from vanco, pt off vanco at discharge, creat is 1.6, would recommend PCP check renal function in 1 week, if still elevated or worsening will need nephrology evalution. No changes made to patient chr home medication list. Discharge diagnosis: Pneuonia, influenza, ARDS - Time Spent with Patient Total time spent providing and/or coordinating discharge services: Greater than 30 minutes Medical - DS: Exam - Constitutional Vitals: Vital Signs Temp Pulse Resp BP Pulse Ox 06/17/18 12:00 97.5 F 20 122/88 91 06/17/18 08:00 99.1 F H 89 20 138/86 92 06/17/18 03:46 98.6 F 87 20 135/91 90 06/17/18 00:00 98.9 F 86 16 137/92 90 06/16/18 19:04 99.3 F H 20 142/90 91 06/16/18 16:00 97.6 F 28 H 151/94 91 Intake and Output 06/16/18 06/17/18 06/17/18 21:59 05:59 13:59 Intake Total 330 / 1440 240 / 1440 Balance 330 / 287 240 / 287 Intake: Oral 330 / 790 240 / 790 Other: Meal Lunch Percent of Meal Consumed 100% Feeding Ability Independent # Voids 1 Weight 193 lb Additional comments: Constitutional; Afebrile, cooperative, alert, not in distress. Eyes- No icterus, , No periorbital swelling Ears- Ext ear normal, hearing normal to conversation. Neck- Midline trachea, supple Respiratory system: Air Entry equal on both sides, improved air entry, minor crackles at bases CVS- Rate rhythm regular, S1,S2 heard, no gallop, no rub. 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 Medical - DS: Data Labs on day of discharge: Labs from last 24 hours 06/17/18 06/17/18 06/17/18 08:51 04:25 04:25 WBC 8.4 RBC 4.18 Hgb 11.3 L Hct 33.9 L MCV 81.2 MCH 27.0 MCHC 33.3 RDW 13.3 Plt Count 441 H MPV 8.7 Gran % 78.3 H Lymph % (Auto) 10.6 L Coles % (Auto) 10.1 Eos % (Auto) 0.5 Baso % (Auto) 0.5 Gran # 6.6 Lymph # (Auto) 0.9 L Coles # (Auto) 0.8 Eos # (Auto) 0 Baso # (Auto) 0 Sodium 139 Potassium 4.1 Chloride 97 Carbon Dioxide 30 Anion Gap 12.0 BUN 21 Creatinine 1.6 H GFR Calculation 34 Glucose 103 Uric Acid 6.6 Calcium 9.4 Phosphorus 4.2 Magnesium 2.3 Total Bilirubin 0.4 Direct Bilirubin < 0.2 GGT 28 AST 17 ALT 19 Alkaline Phosphatase 66 Lactate Dehydrogenase 254 H Total Protein 7.5 Albumin 3.2 Globulin 4.3 H Albumin/Globulin Ratio 0.7 L Triglycerides 89 Vancomycin Trough 20.5 H* Medical - DS: A/P - Patient/Caregiver Discharge Instructions Activity: as per physical therapy Diet: Regular Diet Additional Instructions: Please take levofloxacin every other day for 2 does. Follow up with PCP in 1 week Make sure your PCP checks your kidney function in 1 week, if this is still abnormal, you will need to follow up with a finisher polisher. Go to the ER if worsening symptoms, chest pain, shortness of breath or any other acute concern. No changes have been made to your chronic home medication list Please take the acapella and incentive spiormetery at home and use it eveyr 2-4 hrs. - Follow up Plan Follow up with: Reena Forbes ARNP [Primary Care Provider] - Disposition: Home, Self-Care Prognosis: Fair Rehab Potential: Fair I certify that the patient requires SNF services: No Overall status at discharge: patient is progressing back to baseline Medical - DS: Qual - VTE Deep Vein Thrombosis/Pulmonary Embolism Present on Admission: No
== END 2018-06-17 14:35 | disposition home or self-care (01) | DRG 871 ==
LOC: ED 04:20 → ICU 09:00 → MEDSUR 06-07 23:20 → ICU 06-10 09:25 → MEDSUR 06-16 12:30
PROVIDERS: ADMIT Internal Medicine; ATTEND Internal Medicine